=== PATIENT | male | born 1950 | race Native Hawaiian/Other Pacific Islander ===

== ENCOUNTER 2018-04-17 16:37 | Emergency (ER) | payer MEDICARE, OTHER ==
[2018-04-17 16:45] VITALS: BP 183/91; PULSE 78; RESP 20; TEMP 98.1
[2018-04-17] MEDS ORDERED: IBUPROFEN 600 MG TAB PO STA (16:54)
--- NOTE | 2018-04-17 17:26 | ED ---
Lower Extremity Injury HPI - General Chief Complaint: Extremity Injury, Lower Stated Complaint: [facility] - rt knee injury Time Seen by Provider: 04/17/18 16:53 Source: patient Mode of arrival: wheelchair Limitations: no limitations - History of Present Illness Initial Comments: This a 68-year-old male who denies past medical history presents today for chief complaint of right knee pain 1 week. patient states that a week ago he was at work at the [employer], when he stepped into a gonzales will with his right leg. She admits to feeling she twisted his right knee. He denies any dislocation. Immediately following the incident he reported ankle and knee pain. She denies falling, hitting his head or any loss consciousness or injury to any other extremity. Patient was able to ambulate. Patient presented to a clinic in [place] for evaluation, where x-rays were performed. He states it was not discussed them the x-ray results, he was placed in a knee extension brace. And he is not sure where he was told to follow up. Since injury patient has been experiencing increasing pain, he has not taken off the leg brace. He denies any erythema, increasing swelling, warmth to palpation, tingling, paresthesia, loss sensation or calf pain. She admits to decreased range of motion of the right knee stating that it feels stiff and it hurts when he bends it, as well as a feeling of numbness in the feet that comes and goes occasionally. Patient presents today for further evaluation.Patient denies any recent fever, chills, shortness of breath, chest pain, back pain, abdominal pain , nausea or vomiting, numbness or tingling, dysuria or hematuria, constipation or diarrhea, headaches or visual changes, or any other complaints. She states that the pain is a 10 out of 10 in the right knee that times radiates down the right leg.Patient denies any recent fever, chills, shortness of breath, chest pain, back pain, abdominal pain, nausea or vomiting, numbness or tingling, dysuria or hematuria, constipation or diarrhea, headaches or visual changes, or any other complaints. - Related Data Previous Rx's Medication Instructions Recorded Cephalexin [Keflex] 500 mg PO Q6HR #40 cap 03/31/16 Hydrocortisone [Cortisone 10%] 1 applic TOPICAL TID #1 tube 03/31/16 Ibuprofen [Motrin] 600 mg PO Q8HR PRN 7 Days #21 tab 04/17/18 Allergies Allergy/AdvReac Type Severity Reaction Status Date / Time No Known Allergies Allergy Verified 04/17/18 16:45 Review of Systems ROS Statement: Those systems with pertinent positive or pertinent negative responses have been documented in the HPI. ROS Other: All systems not noted in ROS Statement are negative. Constitutional: Denies: fever, chills Eyes: Denies: eye pain ENT: Denies: ear pain, throat pain Respiratory: Denies: cough, dyspnea Cardiovascular: Denies: chest pain, palpitations Endocrine: Denies: fatigue Gastrointestinal: Denies: abdominal pain, nausea, vomiting Genitourinary: Denies: urgency, dysuria Musculoskeletal: Reports: joint swelling, arthralgia. Denies: back pain Skin: Denies: rash, lesions Neurological: Reports: abnormal gait (difficulty ambulating secondary to pain). Denies: headache, weakness, paresthesias, confusion, vertigo Past Medical History Past Medical History: No Reported History History of Any Multi-Drug Resistant Organisms: None Reported Past Surgical History: Orthopedic Surgery Additional Past Surgical History / Comment(s): lung Past Psychological History: No Psychological Hx Reported Smoking Status: Current some day smoker Past Alcohol Use History: Occasional Past Drug Use History: None Reported General Exam - General Exam Comments Initial Comments: General: The patient is awake and alert, in no distress, and does not appear acutely ill. Eye: Pupils are equal, round and reactive to light, extra-ocular movements are intact. No nystagmus. There is normal conjunctiva bilaterally. No signs of icterus. Cardiovascular: There is a regular rate and rhythm. No murmur, rub or gallop is appreciated. Respiratory: Lungs are clear to auscultation, respirations are non-labored, breath sounds are equal. No wheezes, stridor, rales, or rhonchi. Musculoskeletal: There is soft tissue swelling over the lateral aspect of the right knee. No visible bulk atrophy, hypertrophy, fasciculations of the LE b/l. Full PROM of LE b/l. Bilateral muscle strength 5/5 for the following muscles: hip flexor, hip abductors/adductors, hamstrings, quadriceps, feet dorsiflexors/ plantar flexors. Pt is able to full range at the knee b/l with discomfort in the right knee. Tenderness to palpation over the anterior and lateral aspect of the right knee. Sensation intact and equal b/l. DP pulses equal bilaterally 2+. Compartments are soft and compressible of the legs equally b/l. No abrasion or lacerations. Neurological: A&O x 3. CN II-XII intact, There are no obvious motor or sensory deficits. Coordination appears grossly intact. Speech is normal. Skin: Skin is warm and dry and no rashes or lesions are noted. Psychiatric: Cooperative, appropriate mood & affect, normal judgment. Limitations: no limitations Course Vital Signs 04/17/18 16:42 Temperature 98.1 F Pulse Rate 78 Respiratory 20 Rate Blood Pressure 183/91 O2 Sat by Pulse 99 Oximetry Medical Decision Making - Medical Decision Making 68-year-old male with right knee pain concerning for possible fracture or ligamentous injury. X-rays of the right knee were obtained revealing no acute fracture or dislocation. Given the significance of soft tissue swelling in area of tenderness to patient with mechanism of injury I'm concerned for a lateral collateral ligament injury. No signs of rhabdomyolysis or compartment syndrome at this time. Given hx and that there is no erythema or pain out of portion on passive range of motion, low suspicion for septic joint this time. Extensor mechanism intact. Patient was able to weight-bear during examination and range the knee him a neurovascular intact. Case is discussed in detail and x-rays reviewed with . At this time we feel patient would benefit from orthopedic surgery follow-up for further evaluation and treatment. Patient is placed in a knee immobilizer. Given Rx for 600 mg ibuprofen for pain management. And told to nonweight bear until further orthopedic recommendation. Patient was educated on use of Rice instructions. Patient discharged in stable condition. She is instructed to return to emergency department for any worsening symptoms patient agreed.. Disposition Clinical Impression: Strain of right knee, Right knee pain Disposition: HOME SELF-CARE Condition: Good Instructions: Knee Sprain (ED) Additional Instructions: Please use medication as discussed. Please follow-up with orthopedic surgery in 1-2 days for possible right lateral collateral ligamentous injury. Please return to emergency room if the symptoms increase or worsen or for any other concerns. Prescriptions: Ibuprofen [Motrin] 600 mg PO Q8HR PRN 7 Days #21 tab PRN Reason: Pain Is patient prescribed a controlled substance at d/c from ED?: No Referrals: None,Stated [Primary Care Provider] - 1-2 days Jos Lang MD [STAFF PHYSICIAN] - 1-2 days Time of Disposition: 17:56
--- NOTE | 2018-04-17 17:41 | XR ---
PROCEDURE: XR knee complete RT 3V DATE AND TIME: 04/17/2018 5:16 PM CLINICAL INDICATION: H Pain TECHNIQUE: Department protocol. 3V COMPARISON: None FINDINGS: There is no definite fracture. Undulation of the contour of the central and lateral tibial plateau is noted, mentioned for clinical pretest probability sake, but there is no definite fracture radiographically. here is moderate plus soft tissue swelling laterally, suggesting lateral collateral ligament sprain i njury. 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 IMPRESSION: 1. Positive for lateral soft tissue swelling. 2. No definite acute fracture.
--- NOTE | 2018-04-17 17:42 | XR ---
PROCEDURE: XR tibia fibula RT - 4V DATE AND TIME: 04/17/2018 5:16 PM CLINICAL INDICATION: [facility] Pain TECHNIQUE: Department protocol. COMPARISON: None FINDINGS: There is no fracture or malalignment. The soft tissues are unremarkable. IMPRESSION: NO ACUTE PROCESS.
--- NOTE | 2018-04-17 17:43 | XR ---
PROCEDURE: XR ankle complete RT 3V DATE AND TIME: 04/17/2018 5:15 PM CLINICAL INDICATION: [facility] Pain TECHNIQUE: Department protocol. 3V COMPARISON: None FINDINGS: There is no fracture or malalignment. The soft tissues are unremarkable. IMPRESSION: NO ACUTE PROCESS.
== END 2018-04-17 18:09 | disposition home or self-care (01) ==
LOC: EC 16:37
DX: S86.811A Strain of other muscle(s) and tendon(s) at lower leg level, right leg, initial encounter (principal); F17.200 Nicotine dependence, unspecified, uncomplicated; X50.1XXA Overexertion from prolonged static or awkward postures, initial encounter; Y99.0 Civilian activity done for income or pay
CPT/HCPCS: 99283

== ENCOUNTER 2024-10-20 11:06 | Inpatient (IN) | payer MEDICARE ==
--- NOTE | 2024-10-20 12:25 | ED ---
Nausea/Vomiting/Diarrhea HPI - General Chief complaint: Nausea/Vomiting/Diarrhea Stated complaint: vomiting Time Seen by Provider: 10/20/24 12:23 Source: patient, family, RN notes reviewed Mode of arrival: ambulatory Limitations: no limitations - History of Present Illness Initial comments: Patient is 74-year-old male presented the ER for evaluation of nausea and vomiting. Family, at bedside, state for the past week patient has been unable to keep solids or liquids down. Daughter states she did bring patient 1 meal and he was able to consume this without difficulties earlier last week. Since then he is up and unable to keep food down. Patient was recently admitted to [facility] for this complaint. Patient states he had a negative workup at that time and was told to consume liquids upon discharge. Patient was discharged yesterday. Patient states he continues to have difficulty with consuming food and feels weak. He denies any abdominal pain, fevers, constipation/diarrhea, melena, hematochezia, hematic emesis or coffee-ground e mesis urinary complaints. No cough, congestion, chest pain, shortness of breath or other complaints at this time. Patient has no significant past medical history. No history of bowel surgeries. Patient does take medication for low blood pressure and did not take it this morning. Patient has not had prior colonoscopy. - Related Data Previous Rx's Medication Instructions Recorded Cephalexin [Keflex] 500 mg PO Q6HR #40 cap 03/31/16 Hydrocortisone [Cortisone 10%] 1 applic TOPICAL TID #1 tube 03/31/16 Ibuprofen [Motrin] 600 mg PO Q8HR PRN 7 Days #21 tab 04/17/18 Allergies Allergy/AdvReac Type Severity Reaction Status Date / Time No Known Allergies Allergy Verified 04/17/18 16:45 Review of Systems ROS Statement: Those systems with pertinent positive or pertinent negative responses have been documented in the HPI. ROS Other: All systems not noted in ROS Statement are negative. Past Medical History Past Medical History: Hyperlipidemia, Hypertension History of Any Multi-Drug Resistant Organisms: None Reported Past Surgical History: Orthopedic Surgery Additional Past Surgical History / Comment(s): lung Past Psychological History: No Psychological Hx Reported Past Alcohol Use History: Occasional Past Drug Use History: None Reported General Exam Limitations: no limitations General appearance: alert, in no apparent distress Eye exam: Present: PERRL, scleral icterus Respiratory exam: Present: normal lung sounds bilaterally. Absent: respiratory distress, wheezes, rales, rhonchi, stridor Cardiovascular Exam: Present: regular rate, normal rhythm, normal heart sounds. Absent: systolic murmur, diastolic murmur, rubs, gallop, clicks GI/Abdominal exam: Present: soft, normal bowel sounds. Absent: distended, tenderness, guarding, rebound, rigid Neurological exam: Present: alert, oriented X3, CN II-XII intact Skin exam: Present: warm, dry, intact, normal color. Absent: rash Course Vital Signs 10/20/24 11:24 Temperature 98.5 F Pulse Rate 98 Respiratory 20 Rate Blood Pressure 126/71 O2 Sat by Pulse 98 Oximetry - Reevaluation(s) Reevaluation #1: 10/20/24 15:[address] Cuba [facility] for admission Medical Decision Making - Medical Decision Making Was pt. sent in by a medical professional or institution (, PA, FEEDER/FOLDER, urgent care, hospital, or custodial...) When possible be specific @ -No Did you speak to anyone other than the patient for history (EMS, parent, family, police, friend...)? What history was obtained from this source @ -Patient's daughter, at bedside, aiding in HPI and PMHx. Did you review nursing and triage notes (agree or disagree)? Why? @ -I reviewed and agree with nursing and triage notes Were old charts reviewed (outside hosp., previous admission, EMS record, old EKG, old radiological studies, urgent care reports/EKG's, custodial records)? Report findings @ -No old charts were reviewed Differential Diagnosis (chest pain, altered mental status, abdominal pain women, abdominal pain men, vaginal bleeding, weakness, fever, dyspnea, syncope, headache, dizziness, GI bleed, back pain, seizure, CVA, palpatations, mental health, musculoskeletal)? @ -Differential Weakness: Hypoglycemia, shock, sepsis, hyponatremia, anemia, infection, OH, ETOH, adverse medicine reaction, overdose, stroke, this is not meant to be an all-inclusive list. EKG interpreted by me (3pts min.). @ -None done X-rays interpreted by me (1pt min.). @ -None done CT interpreted by me (1pt min.). @ -CT abdomen pelvis showing innumerable hypodense lesions throughout the liver concerning of metastasis. Enlarged right lower lobe 1.1 cm pulmonary nodule concerning of metastasis. Circumferential wall thickening of the gastric antrum which could be related to malignancy versus gastritis. Scattered colonic diverticula no acute diverticulitis. U/S interpreted by me (1pt. min.). @ -None done What testing was considered but not performed or refused? (CT, X-rays, U/S, labs)? Why? @ -None What meds were considered but not given or refused? Why? @ -None Did you discuss the management of the patient with other professionals (kira mcginnisfedaniel i.e. , PA, FEEDER/FOLDER, lab, RT, psych nurse, perinatal social worker, soft water mechanic, teacher, security officers and guards, case picker)? Give summary @ -Yes, case was discussed with [facility], Dr. Cuba, for admission who accepts. Was smoking cessation discussed for >3mins.? @ -No Was critical care preformed (if so, how long)? @ -No Were there social determinants of health that impacted care today? How? (Homelessness, low income, unemployed, alcoholism, drug addiction, transportation, low edu. Level, literacy, decrease access to med. care, half-way, rehab)? @ -No Was there de-escalation of care discussed even if they declined (Discuss DNR or withdrawal of care, Hospice)? DNR status @ -No What co-morbidities impacted this encounter? (DM, HTN, Smoking, COPD, CAD, Cancer, CVA, ARF, Chemo, Hep., AIDS, mental health diagnosis, sleep apnea, morbid obesity)? @ -Hx hypotension on medication Was patient admitted / discharged? Hospital course, mention meds given and route, prescriptions, significant lab abnormalities, going to OR and other pertinent info. @ -Admitted. 74-year-old male presented the ER for evaluation of nausea and vomiting. Upon rooming, history and physical exam completed. Vitals within acceptable limits. Patient in no signs acute distress nontoxic-appearing. Sclera appear to be mildly jaundiced. There is no abdominal pain on exam. CBC unremarkable. Lactic of 2.2. Total bilirubin 1.6, AST 149, ALT 46, alk phos 156. Amylase 39, lipase 43. Viral swabs negative. CT abdomen pelvis with extensive concerning signs of malignancy. Given abnormal CT findings concerning of malignancy and patient unable to tolerate solid foods admission was considered and discussed with [facility], Dr. Cuba who accepts admission. Oncology and GI on consult. Upon reevaluation, patient resting comfortably on stretcher no signs of acute distress. Laboratory studies and CT results including concern of malignancy discussed with patient, all questions answered. Patient agreeable for admission. Case discussed with ED attending, Dr. Quintanilla. Undiagnosed new problem with uncertain prognosis? @ -No Drug Therapy requiring intensive monitoring for toxicity (Heparin, Nitro, Insulin, Cardizem)? @ -No Were any procedures done? @ -No Diagnosis/symptom? @ -Nausea and vomiting/ Abnormal CT scan Acute, or Chronic, or Acute on Chronic? @ -Acute Uncomplicated (without systemic symptoms) or Complicated (systemic symptoms)? @ -Complicated Side effects of treatment? @ -No Exacerbation, Progression, or Severe Exacerbation? @ -No Poses a threat to life or bodily function? How? (Chest pain, USA, OH, pneumonia, PE, COPD, DKA, ARF, appy, cholecystitis, CVA, Diverticulitis, Homicidal, S uicidal, threat to staff... and all critical care pts) @ -Yes, cannot rule out malignancy - Lab Data Result diagrams: 10/20/24 12:43 10/20/24 12:43 Lab Results 10/20/24 10/20/24 10/20/24 Range/Units 12:43 12:43 12:43 WBC 10.4 (3.8-10.6) k/uL RBC 4.76 (4.30-5.90) m/uL Hgb 14.4 (13.0-17.5) gm/dL Hct 43.4 (39.0-53.0) % MCV 91.1 (80.0-100.0) fL MCH 30.1 (25.0-35.0) pg MCHC 33.1 (31.0-37.0) g/dL RDW 12.6 (11.5-15.5) % Plt Count 249 (150-450) k/uL MPV 8.3 Neutrophils % 71 % Lymphocytes % 17 % Monocytes % 10 % Eosinophils % 1 % Basophils % 0 % Neutrophils # 7.4 (1.3-7.7) k/uL Lymphocytes # 1.7 (1.0-4.8) k/uL Monocytes # 1.1 H (0-1.0) k/uL Eosinophils # 0.1 (0-0.7) k/uL Basophils # 0.0 (0-0.2) k/uL Sodium 132 L (137-145) mmol/L Potassium 4.0 (3.5-5.1) mmol/L Chloride 95 L (98-107) mmol/L Carbon Dioxide 26 (22-30) mmol/L Anion Gap 11 mmol/L BUN 14 (9-20) mg/dL Creatinine 1.23 (0.66-1.25) mg/dL Est GFR (CKD-EPI)AfAm 67 (>60 ml/min/1.73 sqM) Est GFR (CKD-EPI)NonAf 58 (>60 ml/min/1.73 sqM) Glucose 120 H (74-99) mg/dL Plasma Lactic Acid Bryson 2.2 H* (0.7-2.0) mmol/L Calcium 9.0 (8.4-10.2) mg/dL Magnesium 1.9 (1.6-2.3) mg/dL Total Bilirubin 1.6 H (0.2-1.3) mg/dL AST 149 H (17-59) U/L ALT 46 (4-49) U/L Alkaline Phosphatase 156 H (38-126) U/L Total Protein 7.9 (6.3-8.2) g/dL Albumin 4.0 (3.5-5.0) g/dL Amylase 39 (30-110) U/L Lipase 43 (23-300) U/L Influenza Type A (PCR) (Not Detectd) Influenza Type B (PCR) (Not Detectd) RSV (PCR) (Not Detectd) SARS-CoV-2 (PCR) (Not Detectd) 10/20/24 Range/Units 12:43 WBC (3.8-10.6) k/uL RBC (4.30-5.90) m/uL Hgb (13.0-17.5) gm/dL Hct (39.0-53.0) % MCV (80.0-100.0) fL MCH (25.0-35.0) pg MCHC (31.0-37.0) g/dL RDW (11.5-15.5) % Plt Count (150-450) k/uL MPV Neutrophils % % Lymphocytes % % Monocytes % % Eosinophils % % Basophils % % Neutrophils # (1.3-7.7) k/uL Lymphocytes # (1.0-4.8) k/uL Monocytes # (0-1.0) k/uL Eosinophils # (0-0.7) k/uL Basophils # (0-0.2) k/uL Sodium (137-145) mmol/L Potassium (3.5-5.1) mmol/L Chloride (98-107) mmol/L Carbon Dioxide (22-30) mmol/L Anion Gap mmol/L BUN (9-20) mg/dL Creatinine (0.66-1.25) mg/dL Est GFR (CKD-EPI)AfAm (>60 ml/min/1.73 sqM) Est GFR (CKD-EPI)NonAf (>60 ml/min/1.73 sqM) Glucose (74-99) mg/dL Plasma Lactic Acid Bryson (0.7-2.0) mmol/L Calcium (8.4-10.2) mg/dL Magnesium (1.6-2.3) mg/dL Total Bilirubin (0.2-1.3) mg/dL AST (17-59) U/L ALT (4-49) U/L Alkaline Phosphatase (38-126) U/L Total Protein (6.3-8.2) g/dL Albumin (3.5-5.0) g/dL Amylase (30-110) U/L Lipase (23-300) U/L Influenza Type A (PCR) Not Detected (Not Detectd) Influenza Type B (PCR) Not Detected (Not Detectd) RSV (PCR) Not Detected (Not Detectd) SARS-CoV-2 (PCR) Not Detected (Not Detectd) Disposition Clinical Impression: Nausea and vomiting, Abnormal CT scan Disposition: ADMITTED IP TO THIS HOSP Condition: Stable Referrals: Damion Candelario MD [Primary Care Provider] - 1-2 days Time of Disposition: 15:02
[2024-10-20 12:53] LABS: Basophils % (A) 0 %; Eosinophils # (A) 0.1 k/uL (0-0.7); Eosinophils % (A) 1 %; HCT 43.4 % (39.0-53.0); HGB 14.4 gm/dL (13.0-17.5); Lymphocytes # (A) 1.7 k/uL (1.0-4.8); Lymphocytes % (A) 17 %; MCH 30.1 pg (25.0-35.0); MCHC 33.1 g/dL (31.0-37.0); MCV 91.1 fL (80.0-100.0); Mean Platelet Volume 8.3; Monocytes # (A) 1.1 k/uL (0-1.0); Monocytes % (A) 10 %; Neutrophils # (A) 7.4 k/uL (1.3-7.7); Neutrophils % (A) 71 %; Platelet Count 249 k/uL (150-450); RBC 4.76 m/uL (4.30-5.90); RDW 12.6 % (11.5-15.5); WBC 10.4 k/uL (3.8-10.6)
[2024-10-20 13:02] LABS: ALT 46 U/L (4-49); AST 149 U/L (17-59); African American GFR (CKD) 67 (>60 ml/min/1.73 sqM); Alkaline Phosphatase 156 U/L (38-126); Amylase 39 U/L (30-110); Anion Gap 11 mmol/L; Blood Urea Nitrogen 14 mg/dL (9-20); Carbon Dioxide 26 mmol/L (22-30); Chloride 95 mmol/L (98-107); Glucose 120 mg/dL (74-99); Lipase 43 U/L (23-300); Magnesium 1.9 mg/dL (1.6-2.3); Non-African American GFR(CKD) 58 (>60 ml/min/1.73 sqM); Sodium 132 mmol/L (137-145); Total Bilirubin 1.6 mg/dL (0.2-1.3); Total Protein 7.9 g/dL (6.3-8.2)
[2024-10-20 13:27] LABS: Influenza A Not Detected (Not Detectd); Influenza B Not Detected (Not Detectd); RSV Not Detected (Not Detectd)
[2024-10-20] MEDS: ONDANSETRON 4 MG/2 ML VIAL IVP STA (13:49)
[2024-10-20] MEDS: SODIUM CHLORIDE 0.9% 1,000 ML IV STA (13:49)
--- NOTE | 2024-10-20 14:35 | CT ---
EXAMINATION TYPE: CT abdomen pelvis w con CT DLP: 769.5 mGycm, Automated exposure control for dose reduction was used. DATE OF EXAM: 10/20/2024 2:22 PM COMPARISON: None CLINICAL INDICATION:Male, 74 years old with history of nausea/vomiting; RT side abdominal pain, N/V, TECHNIQUE: Standard CT of the abdomen and pelvis following the administration of 100 cc of Isovue 3 00 IV contrast material. Coronal and sagittal reformats were performed. FINDINGS: LOWER CHEST: Right lower lobe 1.1 cm solid round pulmonary nodule (series 204, image 5). ABDOMEN LIVER: Unremarkable GALLBLADDER AND BILE DUCTS: Unremarkable. PANCREAS: Unremarkable. SPLEEN: Unremarkable. ADRENAL GLANDS: Unremarkable. KIDNEYS AND URETERS: No evidence of hydronephrosis or renal calculus. The kidneys enhance symmetrical ly. Contrast is demonstrated within both collecting systems on the delayed phase. PELVIS BLADDER: Innumerable hypodense lesions throughout the liver with hepatic surface nodularity. REPRODUCTIVE: Coarse calcifications of the prostate gland are identified. Enlarged prostate gland pato suring 5.5 cm in transverse dimension. ABDOMEN & PELVIS STOMACH AND BOWEL: Scattered colonic diverticula without evidence for acute diverticulitis.The append ix is within normal limits. Periampullary duodenal diverticulum. No evidence of bowel obstruction. PERITONEUM: No evidence of pneumoperitoneum or free fluid. VASCULATURE: Mild atherosclerotic calcifications are present throughout the abdominal aorta and its b ranches. No evidence of aortic aneurysm. MUSCULOSKELETAL: No acute osseous abnormalities. Degenerative changes of bilateral SI joints with ant erior bridging. No aggressive osseous lesion. Multilevel degenerative disc disease. LYMPH NODES: No definitive pathologic lymph nodes greater than 1 axis. SOFT TISSUE/ABDOMINAL WALL: Unremarkable IMPRESSION: 1. Innumerable hypodense lesions throughout the liver most consistent with metastasis from an unknow n primary malignancy. Additionally there is surface nodularity of the liver which could be due to hep atic cirrhosis versus pseudocirrhosis from the lesions. 2. Enlarged right lower lobe 1.1 cm pulmonary nodule concerning for metastasis. 3. Circumferential wall thickening of the gastric antrum which could be seen with malignancy versus g astritis. Direct visualization is recommended. 4. Scattered colonic diverticula without evidence for acute diverticulitis. [facility], , 10/20/2024 2:33 PM
[2024-10-20] MEDS ORDERED: IBUPROFEN 400 MG TAB PO PRN (15:00)
[2024-10-20] MEDS ORDERED: NALOXONE 0.4 MG/ML 1 ML VIAL IV PRN (15:00)
[2024-10-20] MEDS ORDERED: HYDROmorphone 1 MG/ML 1 ML SYRINGE IVP PRN (15:00)
[2024-10-20] MEDS ORDERED: ACETAMINOPHEN TAB 325 MG TAB PO PRN (15:00)
[2024-10-20] MEDS: SODIUM CHLORIDE 0.9% 1,000 ML IV SCH (17:20)
[2024-10-20] MEDS: METOPROLOL TARTRATE 50 MG TAB PO SCH (22:44)
[2024-10-21 06:48] LABS: Glucose,Whole Blood 96 mg/dL (70-110)
[2024-10-21 07:05] LABS: Appearance,Urine Clear (Clear); Bilirubin,Urine Negative (Negative); Blood,Urine Trace (Negative); Color,Urine Yellow; Glucose,Urine (UA) Negative (Negative); Ketones,Urine Negative (Negative); Leukocyte Esterase,Urine Negative (Negative); Mucus,Urine Rare /hpf; Nitrite,Urine Negative (Negative); Protein,Urine Trace (Negative); RBC,Urine 3 /hpf (0-5); Specific Gravity,Urine 1.027 (1.001-1.035); WBC,Urine <1 /hpf (0-5)
[2024-10-21] MEDS: HEPARIN SODIUM,PORCINE 5,000 UNIT/ML 1 ML VIAL SQ SCH (08:27)
[2024-10-21 12:39] LABS: INR 1.4 sec (0.93-1.11); Prothrombin Time 15.3 sec (9.9-11.9)
--- NOTE | 2024-10-21 14:30 | P.HPIM ---
History of Present Illness H&P Date: 10/21/24 This is a pleasant 74-year-old male who presented to the emergency department with intense abdominal pain along with nausea and vomiting being closely monitored. Patient reports he follows with Dr. Damion Candelario' WINSTON Kelly at the [facility] in [place] with a past medical history of chronic A-fib, nicotine dependence, alcoholic cirrhosis, right pulmonary nodule, daily alcohol use and obesity. Patient denies any other illicit drug use and reports has not had a drink in over a week and a half as he has not been feeling well. Per family patient has not been eating the greatest and has been having excessive nausea and vomiting. Patient also was noted to have multiple episodes of diar harris which has since resolved. Patient was admitted after undergoing CT abdomen which shows innumerable hypodense lesions throughout the liver most consistent with metastasis from an unknown primary malignancy, additionally there is surface nodularity of the liver which could be due to hepatic cirrhosis versus pseudocirrhosis from the lesions, and an enlarged right lower lobe 1.1 cm nodule concerning for metastasis as well as circumferential wall thickening of the gastric antrum which could represent malignancy versus gastritis along with scattered colonic diverticula without evidence of acute diverticulitis. Labs reveal a normal white count of 10.4, hemoglobin 14.4, platelets 249, sodium 132, potassium 4.0, BUN 14 and creatinine 1.23. Total bili is 1.6 with an AST of 149 and ALT is 46 urinalysis was negative, and influenza, RSV, COVID were all negative as well. Patient was started on gentle hydration along with supportive care and pain management with a consult to GI as well as oncology and interventional radiology for possible biopsy. REVIEW OF SYSTEMS: CONSTITUTIONAL: No fever, no malaise, reports of ongoing fatigue. HEENT: No recent visual problems or hearing problems. Denied any sore throat. CARDIOVASCULAR: No chest pain, orthopnea, PND, no palpitations, no syncope. PULMONARY: No shortness of breath, no cough, no hemoptysis. GASTROINTESTINAL: Reports of diarrhea prior to admission, reports of nausea, reports of vomiting that has resolved, reports diffuse abdominal pain. And multiple episodes of diarrhea that is also resolved NEUROLOGICAL: No headaches, reports of generalized weakness, no numbness. HEMATOLOGICAL: Denies any bleeding or petechiae. GENITOURINARY: Denies any burning micturition, frequency, or urgency. MUSCULOSKELETAL/RHEUMATOLOGICAL: Denies any joint pain, swelling, or any muscle pain. ENDOCRINE: Denies any polyuria or polydipsia. The rest of the 14-point review of systems is negative. PHYSICAL EXAMINATION: GENERAL: The patient is alert and oriented x3, not in any acute distress. Well developed, elderly appearing HEENT: Pupils are round and equally reacting to light. EOMI. No scleral icterus. No conjunctival pallor. Normocephalic, atraumatic. No pharyngeal erythema. No thyromegaly. CARDIOVASCULAR: S1 and S2 muffled PULMONARY: Diminished breath sounds bilaterally otherwise chest is clear to auscultation, no wheezing or crackles. ABDOMEN: Soft, mildly tender, nondistended, normoactive bowel sounds. No palpable organomegaly. MUSCULOSKELETAL: No joint swelling or deformity. EXTREMITIES: No cyanosis, clubbing, or pedal edema. NEUROLOGICAL: Gross neurological examination did not reveal any focal deficits. SKIN: No rashes. Assessment: Abdominal pain with nausea and vomiting possibly secondary to multiple hypodense lesions noted throughout the liver most consistent with metastasis Nausea/vomiting/diarrhea, likely acute gastritis History of chronic A-fib, maintained on Coumadin Hypertension Continued ongoing nicotine dependence Chronic daily alcohol use, has not had a drink in approximately 1.5 weeks Acute kidney injury, ATN, likely secondary to nausea, vomiting, diarrhea Diarrhea, rule out C. difficile, elevated LFTs and total bilirubin, likely secondary to chronic alcohol use Known right pulmonary nodule with no outpatient follow-up, noted again on CT History of hyperlipidemia GI prophylaxis DVT prophylaxis Full code Plan: Patient was at [facility] and discharged as he was having intractable nausea and vomiting with inability to hold down anything oral and was sent home on clear to full liquids instructed to follow-up with primary care provider. Per family at the bedside patient continued to be unable to tolerate oral intake and keep anything down have multiple episodes of nausea and vomiting with diarrhea came here for further evaluation. Patient is a poor historian and called the primary care providers office of which he sees nurse practitioner or PA for Dr. Kodak Kelly and more of a history was obtained. Patient is on Coumadin and will hold for now as there are tentative plans for biopsy of the liver as there are multiple hypodense lesions noted throughout likely metastasis GI consulted for the abdominal pain and is tentatively scheduled for EGD/colonoscopy and recommend to hold Coumadin, will continue heparin and hold 1 night prior Repeat labs ordered from GI as well as oncology. Interventional radiology consulted with attempts for possible biopsy Patient to continue on clear liquids and gentle hydration and will follow-up on repeat labs. Replace electrolytes per protocol Patient was having multiple episodes of diarrhea although has since subsided it is C. difficile sample has been ordered and pending at this time. Encouraged increase activity as tolerated Will continue pain management and recommend avoiding narcotics if possible given patient's age. Family is also concerned of not being as alert as normal and will monitor closely for any hospital-acquired delirium. May use Seroquel as needed at night Patient to continue clear liquids for now as patient is reporting improvement in abdominal pain, nausea, and vomiting and has not had a bowel movement since his last episode of diarrhea late last night. The impression and plan of care has been dictated by Emma Garcia, Nurse Practitioner as directed. Dr. Yazmin MD I have performed a history and examination and MDM of this patient, discussed the same with the dictator, and agree with the dictator's assessment and plan as written ,documented as a scribe. Based on total visit time, I have performed more than 50% of the visit. Past Medical History Past Medical History: Hyperlipidemia, Hypertension History of Any Multi-Drug Resistant Organisms: None Reported Past Surgical History: No Surgical Hx Reported Additional Past Surgical History / Comment(s): lung Past Anesthesia/Blood Transfusion Reactions: No Reported Reaction Smoking Status: Current some day smoker Medications and Allergies Home Medications Medication Instructions Recorded Confirmed Type Metoprolol Tartrate [Lopressor] 50 mg PO BID@0700,1500 10/20/24 10/20/24 History Warfarin [Coumadin] 2.5 mg PO DAILY@1500 10/20/24 10/20/24 History Allergies Allergy/AdvReac Type Severity Reaction Status Date / Time No Known Allergies Allergy Verified 10/20/24 15:40 Physical Exam Vitals: Vital Signs Temp Pulse Pulse Resp BP BP Pulse Ox 10/21/24 09:07 98.5 F 89 134/84 10/21/24 06:46 98.4 F 73 16 132/81 98 10/21/24 02:00 98.9 F 75 16 126/75 98 10/20/24 21:29 98.3 F 84 16 157/91 95 10/20/24 20:43 16 10/20/24 19:47 80 18 117/70 98 10/20/24 18:19 87 16 143/91 97 10/20/24 15:22 80 18 157/85 95 10/20/24 11:24 98.5 F 98 20 126/71 98 Intake and Output 10/20/24 10/21/24 10/21/24 22:59 06:59 14:59 Intake Total 590 590 480 Balance 590 590 480 Intake: Oral 590 590 480 Other: Voiding Method Urinal # Voids 1 1 Weight 72.575 kg Results CBC & Chem 7: 10/20/24 12:43 10/20/24 12:43 Labs: Abnormal Lab Results - Last 24 Hours (Table) 10/20/24 10/20/24 10/20/24 Range/Units 12:43 12:43 12:43 Monocytes # 1.1 H (0-1.0) k/uL Sodium 132 L (137-145) mmol/L Chloride 95 L (98-107) mmol/L Glucose 120 H (74-99) mg/dL Plasma Lactic Acid Bryson 2.2 H* (0.7-2.0) mmol/L Total Bilirubin 1.6 H (0.2-1.3) mg/dL AST 149 H (17-59) U/L Alkaline Phosphatase 156 H (38-126) U/L Urine Protein (Negative) Urine Blood (Negative) Urine Mucus (None) /hpf 10/21/24 Range/Units 06:15 Monocytes # (0-1.0) k/uL Sodium (137-145) mmol/L Chloride (98-107) mmol/L Glucose (74-99) mg/dL Plasma Lactic Acid Bryson (0.7-2.0) mmol/L Total Bilirubin (0.2-1.3) mg/dL AST (17-59) U/L Alkaline Phosphatase (38-126) U/L Urine Protein Trace H (Negative) Urine Blood Trace H (Negative) Urine Mucus Rare H (None) /hpf Thrombosis Risk Factor Assmnt - Choose All That Apply Any of the Below Risk Factors Present?: No Other Risk Factors: Yes Each Risk Factor Represents 2 Points: Age 61-74 years Each Risk Factor Represents 3 Points: Family history of DVT/PE Thrombosis Risk Factor Assessment Total Risk Factor Score: 5 Thrombosis Risk Factor Assessment Level: High Risk
--- NOTE | 2024-10-21 15:11 | P.CONS ---
History of Present Illness - Reason for Consult Consult date: 10/21/24 Nausea and vomiting, possible malignancy Requesting physician: Lindsay Stout - Chief Complaint Nausea and vomiting - History of Present Illness This a pleasant 74-year-old male who presented to the emergency department after being seen twice at the emergency department in [facility]. Patient has been having nausea and vomiting for the last 5 to 6 days duration. He has not been able to keep any food and minimal fluids down. Patient is poor historian however was able to obtain patient's history from his primary medical physician. He has a past medical history of atrial fibrillation warfarin, liver cirrhosis, pulmonary nodule, daily alcohol abuse for many years as well as nicotine dependence. He denies any hematemesis, nonbilious emesis. States he has been afebrile. Denies any diarrhea or abdominal pain. He has not had any vomiting since he has been admitted to the hospital. He had a CT of the abdomen pelvis as part of his workup with findings of multiple liver lesions gastric wall thickening and had elevated LFTs. Gastroenterology was consulted for nausea and vomiting with liver lesions. Patient denies any previous history of upper endoscopy or colonoscopy. Denies any history of peptic ulcer disease, denies any acid reflux. He is unsure if he has had any weight loss. Apparently patient drinks about a case of beer a day and drinks at least 4 to 5 days a week. Reportedly he has not drink any alcohol in about a week to 2 weeks. Review of Systems REVIEW OF SYSTEMS: CARDIOPULMONARY: No chest pain or shortness of breath. Gastrointestinal: No abdominal pain. Nausea and vomiting for 5 to 6 days duration. Unable to keep food and liquids down. No hematemesis, coffee-ground emesis. No rectal bleeding, or melena. GENITOURINARY: No dysuria or hematuria. MUSCULOSKELETAL: Reports normal range of motion. SKIN: No rashes. No jaundice. ENDOCRINE: No chills, fevers. No excessive weight gain or loss. No polydipsia or polyuria. PSYCHIATRIC: Unremarkable. Daily alcohol use. NEUROLOGY: No change in mental status. Denies dizziness, headache. ENT: Vision unremarkable. CONSTITUTIONAL: No recent weight loss. No fever, chills, night sweats. Past Medical History Past Medical History: Hyperlipidemia, Hypertension History of Any Multi-Drug Resistant Organisms: None Reported Past Surgical History: No Surgical Hx Reported Additional Past Surgical History / Comment(s): lung Past Anesthesia/Blood Transfusion Reactions: No Reported Reaction Smoking Status: Current some day smoker Medications and Allergies Home Medications Medication Instructions Recorded Confirmed Type Metoprolol Tartrate [Lopressor] 50 mg PO BID@0700,1500 10/20/24 10/20/24 History Warfarin [Coumadin] 2.5 mg PO DAILY@1500 10/20/24 10/20/24 History Allergies Allergy/AdvReac Type Severity Reaction Status Date / Time No Known Allergies Allergy Verified 10/20/24 15:40 Physical Exam Vitals: Vital Signs Temp Pulse Pulse Resp BP BP Pulse Ox 10/21/24 09:07 98.5 F 89 134/84 10/21/24 06:46 98.4 F 73 16 132/81 98 10/21/24 02:00 98.9 F 75 16 126/75 98 10/20/24 21:29 98.3 F 84 16 157/91 95 10/20/24 20:43 16 10/20/24 19:47 80 18 117/70 98 10/20/24 18:19 87 16 143/91 97 10/20/24 15:22 80 18 157/85 95 10/20/24 11:24 98.5 F 98 20 126/71 98 Intake and Output 10/20/24 10/21/24 10/21/24 22:59 06:59 14:59 Intake Total 590 590 480 Balance 590 590 480 Intake: Oral 590 590 480 Other: Voiding Method Urinal # Voids 1 1 Weight 72.575 kg General appearance: The patient is alert, oriented, appears in no acute distress. HET: Head is normocephalic and atraumatic. Conjunctiva pink. Sclera anicteric. Neck: Supple without lymphadenopathy. Trachea midline. Heart: Regular. Lungs: Equal expansion, normal respiratory effort. Abdomen: Soft, nontender, no hepatomegaly, nondistended. Skin: No rashes. No jaundice. Extremities: Normal skin color and turgor. No pedal edema. Neurological: No focal deficits. Alert and oriented x3. Results CBC & Chem 7: 10/20/24 12:43 10/20/24 12:43 Labs: Abnormal Lab Results - Last 24 Hours (Table) 10/20/24 10/20/24 10/20/24 Range/Units 12:43 12:43 12:43 Monocytes # 1.1 H (0-1.0) k/uL Sodium 132 L (137-145) mmol/L Chloride 95 L (98-107) mmol/L Glucose 120 H (74-99) mg/dL Plasma Lactic Acid Bryson 2.2 H* (0.7-2.0) mmol/L Total Bilirubin 1.6 H (0.2-1.3) mg/dL AST 149 H (17-59) U/L Alkaline Phosphatase 156 H (38-126) U/L Urine Protein (Negative) Urine Blood (Negative) Urine Mucus (None) /hpf 10/21/24 Range/Units 06:15 Monocytes # (0-1.0) k/uL Sodium (137-145) mmol/L Chloride (98-107) mmol/L Glucose (74-99) mg/dL Plasma Lactic Acid Bryson (0.7-2.0) mmol/L Total Bilirubin (0.2-1.3) mg/dL AST (17-59) U/L Alkaline Phosphatase (38-126) U/L Urine Protein Trace H (Negative) Urine Blood Trace H (Negative) Urine Mucus Rare H (None) /hpf Comments: CT abdomen pelvis with contrast reports innumerable hypodense lesions throughout the liver most consistent with metastasis from an unknown primary malignancy. Additionally there is surface nodularity of the liver which could be due to hepatic cirrhosis versus pseudocirrhosis from the lesions. A large right lower lobe 1.1 cm pulmonary nodule concerning for metastasis. Circumferential wall thickening of the gastric antrum which could be seen with malignancy versus gastritis. Direct visualization is recommended. Scattered colonic diverticula without evidence of acute diverticulitis. Assessment and Plan (1) Nausea and vomiting Narrative/Plan: 74-year-old male with nausea and vomiting for the last 5 to 6 days duration with inability to keep food or liquids down with no prior history of peptic ulcer disease or gastric reflux. CAT scan showing multiple liver lesions in a patient with history of daily alcohol use for many years with reported history of liver cirrhosis per PCP. Nausea and vomiting has subsided, could be secondary to alcohol gastritis however in setting of liver lesions need to consider other possible etiologies. Will proceed with upper endoscopy as well as colonoscopy as patient has never had a colonoscopy. Continue with symptomatic treatment with antiemetics, clear liquid diet. Current Visit: Yes Status: Acute Priority: Medium Code(s): R11.2 - NAUSEA WITH VOMITING, UNSPECIFIED SNOMED Code(s): 96198597 (2) Liver lesion Narrative/Plan: Liver biopsy ordered Current Visit: Yes Status: Acute Code(s): K76.9 - LIVER DISEASE, UNSPECIFIED SNOMED Code(s): 016520325 (3) Liver cirrhosis Narrative/Plan: Reported liver cirrhosis per PCP history, likely secondary to long-term alcohol abuse. Will obtain hepatitis panel. Recommend alcohol abstinence Current Visit: Yes Status: Acute Code(s): K74.60 - UNSPECIFIED CIRRHOSIS OF LIVER SNOMED Code(s): 02230445 (4) Pulmonary nodule Current Visit: Yes Status: Acute Code(s): R91.1 - SOLITARY PULMONARY NODULE SNOMED Code(s): 530056797 (5) Atrial fibrillation Current Visit: Yes Status: Acute Code(s): I48.91 - UNSPECIFIED ATRIAL FIBRILLATION SNOMED Code(s): 83153661 (6) Alcohol abuse Current Visit: Yes Status: Acute Code(s): F10.10 - ALCOHOL ABUSE, UNCOMPLICATED SNOMED Code(s): 30762155 (7) Nicotine dependence Current Visit: Yes Status: Acute Code(s): F17.200 - NICOTINE DEPENDENCE, UNSPECIFIED, UNCOMPLICATED SNOMED Code(s): 93954885 Plan: 1. Continue symptomatic and supportive care 2. Antiemetics as needed 3. Protonix 40 mg twice daily 5. AFP and hepatitis panel ordered 6. Repeat INR, CMP tomorrow 7. Liver biopsy ordered per oncology. Likely will not be scheduled until Sunday per IR nurse 8. Clear liquid diet, n.p.o. after midnight 9. Bowel prep this evening 10. Will plan for upper endoscopy and colonoscopy tomorrow 11. Hold warfarin 12. Continue with recommendations from oncology 13. Discussed with patient and family importance of alcohol abstinence and smoking cessation Thank you for this consultation, we will continue to follow. Dr. Maria Victoria Mena I agree with the dictator's note, documented as a scribe by Marva Dyson.
[2024-10-21 15:22] LABS: Hepatitis A Antibody IgM Nonreactive (Nonreactive); Hepatitis B Core IgM Nonreactive (Nonreactive); Hepatitis B Surface Antigen Nonreactive (Nonreactive); Hepatitis C IgG Antibody Nonreactive (Nonreactive)
--- NOTE | 2024-10-21 15:28 | P.CONS ---
History of Present Illness - Reason for Consult Consult date: 10/21/24 r/o malignancy Requesting physician: Lindsay Stout - Chief Complaint N/V - History of Present Illness Patient is a 74-year-old male with a significant history of hyperlipidemia, hypertension, and EtOH abuse. Patient presented to the emergency room for nausea vomiting and associated decreased oral intake over the last 1 week. Patient reports he was seen in the ER at another hospital twice for the same. Patient endorses approximate 30 pound weight loss over the last couple weeks, but family is unsure if this is accurate. Family reports patient is a heavy daily drinker, consuming up to a case of beer daily. Upon admit CT abdomen and pelvis with contrast showing innumerable hypodense lesions throughout the liver. Additionally there is surface nodularity of the liver which could be due to hepatic cirrhosis versus pseudocirrhosis from the noted lesions. Enlarged right lower lobe 1.1 cm pulmonary nodule. Circumferential wall thickening of the gastric antrum. Scattered colonic diverticuli without evidence of acute diverticulitis. Labs reviewed. WBC 10.4, hemoglobin 14.4, platelets 249,000. Creatinine 1.23, GFR 58. Lactic acid 2.2 now improved at 1.6. Bilirubin 1.6, AST 149, ALT 46, ALP 156. Amylase and lipase WNL. At today's visit patient is reporting significant improvement in nausea vomiting. Reports his appetite has improved and feels very hungry. Patient denies bowel changes, hematochezia and melena and hematemesis. Review of Systems 10 point ROS is negative except as stated in the HPI Past Medical History Past Medical History: Hyperlipidemia, Hypertension History of Any Multi-Drug Resistant Organisms: None Reported Past Surgical History: No Surgical Hx Reported Additional Past Surgical History / Comment(s): lung Past Anesthesia/Blood Transfusion Reactions: No Reported Reaction Smoking Status: Current some day smoker Medications and Allergies Home Medications Medication Instructions Recorded Confirmed Type Metoprolol Tartrate [Lopressor] 50 mg PO BID@0700,1500 10/20/24 10/20/24 History Warfarin [Coumadin] 2.5 mg PO DAILY@1500 10/20/24 10/20/24 History Allergies Allergy/AdvReac Type Severity Reaction Status Date / Time No Known Allergies Allergy Verified 10/20/24 15:40 Physical Exam Vitals: Vital Signs Temp Pulse Pulse Resp BP BP Pulse Ox 10/21/24 11:57 98.3 F 70 16 146/76 99 10/21/24 11:35 98.4 F 78 16 143/87 98 10/21/24 09:07 98.5 F 89 134/84 10/21/24 06:46 98.4 F 73 16 132/81 98 10/21/24 02:00 98.9 F 75 16 126/75 98 10/20/24 21:29 98.3 F 84 16 157/91 95 10/20/24 20:43 16 10/20/24 19:47 80 18 117/70 98 10/20/24 18:19 87 16 143/91 97 10/20/24 15:22 80 18 157/85 95 Intake and Output 10/20/24 10/21/24 10/21/24 22:59 06:59 14:59 Intake Total 590 590 480 Balance 590 590 480 Intake: Oral 590 590 480 Other: Voiding Method Urinal # Voids 1 1 Weight 72.575 kg - Constitutional General appearance: average body habitus, no acute distress - EENT Eyes: anicteric sclerae, EOMI ENT: hearing grossly normal - Neck Neck: no lymphadenopathy - Respiratory breathing is even and unlabored - Cardiovascular well perfused - Gastrointestinal General gastrointestinal: distended, no hepatomegaly, no tenderness - Integumentary Integumentary: no cyanotic, no jaundiced - Neurologic Neurologic: CNII-XII intact - Psychiatric Psychiatric: A&O x's 3 Results CBC & Chem 7: 10/20/24 12:43 10/20/24 12:43 Labs: Abnormal Lab Results - Last 24 Hours (Table) 10/20/24 10/20/24 10/20/24 Range/Units 12:43 12:43 12:43 Monocytes # 1.1 H (0-1.0) k/uL PT (9.9-11.9) sec INR (0.93-1.11) sec Sodium 132 L (137-145) mmol/L Chloride 95 L (98-107) mmol/L Glucose 120 H (74-99) mg/dL Plasma Lactic Acid Bryson 2.2 H* (0.7-2.0) mmol/L Total Bilirubin 1.6 H (0.2-1.3) mg/dL AST 149 H (17-59) U/L Alkaline Phosphatase 156 H (38-126) U/L Urine Protein (Negative) Urine Blood (Negative) Urine Mucus (None) /hpf 10/21/24 10/21/24 Range/Units 06:00 06:15 Monocytes # (0-1.0) k/uL PT 15.3 H (9.9-11.9) sec INR 1.40 H (0.93-1.11) sec Sodium (137-145) mmol/L Chloride (98-107) mmol/L Glucose (74-99) mg/dL Plasma Lactic Acid Bryson (0.7-2.0) mmol/L Total Bilirubin (0.2-1.3) mg/dL AST (17-59) U/L Alkaline Phosphatase (38-126) U/L Urine Protein Trace H (Negative) Urine Blood Trace H (Negative) Urine Mucus Rare H (None) /hpf CT scan - abdomen: report reviewed CT scan - pelvis: report reviewed Assessment and Plan (1) Abnormal CT scan Current Visit: Yes Status: Acute Priority: High Code(s): R93.89 - ABNORMAL FINDINGS ON DX IMAGING OF OTH BODY STRUCTURES SNOMED Code(s): 501384958 (2) Nausea and vomiting Current Visit: Yes Status: Acute Priority: Medium Code(s): R11.2 - NAUSEA WITH VOMITING, UNSPECIFIED SNOMED Code(s): 32337666 Plan: Nausea, vomiting, liver lesions: Patient presented to the emergency room for nausea vomiting and associated decreased oral intake over the last 1 week. He endorses approximate 30 pound weight loss over the last couple weeks, but family is unsure if this is accurate. Family reports patient is a heavy daily drinker, consuming up to a case of beer daily. Patient denies bowel changes, hematochezia and melena and hematemesis -Upon admit CT abdomen and pelvis with contrast showing innumerable hypodense lesions throughout the liver. Additionally there is surface nodularity of the liver which could be due to hepatic cirrhosis versus pseudocirrhosis from the noted lesions. Enlarged right lower lobe 1.1 cm pulmonary nodule. Circumferential wall thickening of the gastric antrum. Scattered colonic d iverticuli without evidence of acute diverticulitis. -WBC 10.4, hemoglobin 14.4, platelets 249,000. Creatinine 1.23, GFR 58. Bilirubin 1.6, AST 149, ALT 46, ALP 156. Amylase and lipase WNL. -GI consulted. Will f/u on their recommendations -IR consult placed for liver biopsy -Will plan for outpt PET CT Discussed findings and concerns for metastatic disease. POC was discussed and pt was agreeable to the same. All questions and concerns were addressed Dr briggs: I have seen and examined pt, performed H&P, developed impression and plan of care. Discussed with dictator. Agree with documentation, dictated as a scribe.
[2024-10-21 15:32] LABS: Alpha Fetoprotein, Tumor Mkr <3.00 ng/mL (0.00-7.90)
[2024-10-21] MEDS: PEG 3350 (236 GM/BTL) + LYTES 4,000 ML BOTTLE PO ONE (17:06)
[2024-10-21] MEDS: ONDANSETRON 4 MG/2 ML VIAL IVP PRN (18:22)
[2024-10-22] MEDS: HYDROcodone/APAP 5-325MG 1 EACH TAB PO PRN (06:06)
[2024-10-22] MEDS: PANTOPRAZOLE 40 MG/10 ML VIAL IVP SCH (09:06)
[2024-10-22 09:12] LABS: BUN/Creat Ratio 6.73 Ratio (12.00-20.00); Blood Urea Nitrogen 7.4 mg/dL (9.0-27.0); Glucose 88 mg/dL (70-110)
[2024-10-22 09:13] LABS: ALT 41 U/L (10-49); AST 111 U/L (14-35); Alkaline Phosphatase 156 U/L (41-126); Chloride 101 mmol/L (96-109); Sodium 133 mmol/L (135-145); Total Bilirubin 1.2 mg/dL (0.3-1.2)
[2024-10-22] MEDS ORDERED: LIDOCAINE 2% (PF) 20 MG/ML 5 ML VIAL ONE (13:15)
[2024-10-22] MEDS ORDERED: PROPOFOL 10 MG/ML 20 ML VIAL IV ONE (13:15)
[2024-10-22] MEDS: IV FLUID CONTINUATION 1,000 ML IV ONE ×2 (13:17→13:32)
--- NOTE | 2024-10-22 13:36 | P.PCN ---
Date of Procedure: 10/22/24 Procedure(s) Performed: BRIEF HISTORY: Patient is a 74-year-old, pleasant, male admitted to hospital with multiple episodes of nausea vomiting for the last 1 month duration. He had a CT of the abdomen pelvis done that showed multiple lesions in the liver suspicious for metastasis. Also there was evidence of thickening of the antrum of the stomach. He is scheduled for an upper endoscopy to evaluate further. Patient could not tolerate colonic prep and hence colonoscopy is canceled for today. PROCEDURE PERFORMED: Esophagogastroduodenoscopy with biopsy. PREOPERATIVE DIAGNOSIS: Chronic nausea vomiting and abnormal CAT scan showing multiple lesions in the liver and thickened antrum. IV sedation per anesthesia. PROCEDURE: After informed consent was obtained, the patient was brought into the endoscopy unit. IV sedation was administered by Anesthesia under continuous monitoring. Initially the Olympus GIF-140 video endoscope was inserted into the mouth. Esophagus intubated without any difficulty. It was gradually advanced into the stomach. In the antrum of the stomach there was a 4 cm raised ulcerated lesion that was extending into the pylorus and the scope would not be advanced to the pylorus into the duodenum. Multiple biopsies were done from the ulcerated lesion. The room was large amount of solid and liquid food in the stomach and hence the body cardia and fundus could not be adequately visualized. The scope was then withdrawn into the esophagus. The GE junction was located at 39 cm from the incisors. The esophagus appeared normal. There were no erosions or ulcerations seen and the patient tolerated the procedure well. IMPRESSION: 1. 4 cm raised ulcerated lesion in the antrum of the stomach extending onto the pylorus causing pyloric stenosis status post multiple biopsies to rule out neoplasm 2. Pyloric stenosis with gastric outlet obstruction and large amount of retained food in the stomach. RECOMMENDATIONS: The findings of this examination were discussed with the patient as well as his family. At this time we will await biopsy results. Continue with clear liquids..
--- NOTE | 2024-10-22 15:42 | P.PN ---
Subjective Progress Note Date: 10/22/24 This is a pleasant 74-year-old male who presented to the emergency department with intense abdominal pain along with nausea and vomiting being closely monitored. Patient reports he follows with Dr. Damion Candelario' WINSTON Kelly at the [facility] in [place] with a past medical history of chronic A-fib, nicotine dependence, alcoholic cirrhosis, right pulmonary nodule, daily alcohol use and obesity. Patient denies any other illicit drug use and reports has not had a drink in over a week and a half as he has not been feeling well. Per family patient has not been eating the greatest and has been having excessive nausea and vomiting. Patient also was noted to have multiple episodes of diarrhea which has since resolved. Patient was admitted after undergoing CT abdomen which shows innumerable hypodense lesions throughout the liver most consistent with metastasis from an unknown primary malignancy, additionally there is surface nodularity of the liver which could be due to hepatic cirrhosis versus pseudocirrhosis from the lesions, and an enlarged right lower lobe 1.1 cm nodule concerning for metastasis as well as circumferential wall thickening of the gastric antrum which could represent malignancy versus gastritis along with scattered colonic diverticula without evidence of acute diverticulitis. Labs reveal a normal white count of 10.4, hemoglobin 14.4, platelets 249, sodium 132, potassium 4.0, BUN 14 and creatinine 1.23. Total bili is 1.6 with an AST of 149 and ALT is 46 urinalysis was negative, and influenza, RSV, COVID were all negative as well. Patient was started on gentle hydration along with supportive care and pain management with a consult to GI as well as oncology and interventional radiology for possible biopsy. 10/22/2024 Patient is seen in follow-up today with oncology and GI following. Patient unable to tolerate the GoLytely bowel prep and will be undergoing EGD for further evaluation. Patient is currently n.p.o. although requesting a diet and advance in diet as he feels hungry. Patient has had no further bowel movements, highly unlikely for C. difficile. Patient is also scheduled for biopsy with interventional radiology although patient had been taking Coumadin and will need to wait until Sunday to perform this. Patient is afebrile denies any further abdominal pain and denies any chest pain other than intermittently. Patient reports to feeling epigastric discomfort that resolves. Review of systems: Constitutional: No reports of fatigue, fever, or chills Cardiovascular: No reports of chest pain or palpitations Respiratory: No reports of shortness of breath or cough GI: No reports of nausea, vomiting, or diarrhea, requesting food reports improved abdominal pain : No reports of dysuria or retention Neurovascular: reports of generalized weakness All medications have been reviewed PHYSICAL EXAMINATION: GENERAL: The patient is alert and oriented x3, not in any acute distress. Well developed, elderly appearing HEENT: Pupils are round and equally reacting to light. EOMI. No scleral icterus. No conjunctival pallor. Normocephalic, atraumatic. No pharyngeal erythema. No thyromegaly. CARDIOVASCULAR: S1 and S2 muffled PULMONARY: Diminished breath sounds bilaterally otherwise chest is clear to auscultation, no wheezing or crackles. ABDOMEN: Soft, mildly tender, nondistended, normoactive bowel sounds. No palpable organomegaly. MUSCULOSKELETAL: No joint swelling or deformity. EXTREMITIES: No cyanosis, clubbing, or pedal edema. NEUROLOGICAL: Gross neurological examination did not reveal any focal deficits. SKIN: No rashes. Assessment: Abdominal pain with nausea and vomiting possibly secondary to multiple hypodense lesions noted throughout the liver most consistent with metastasis Nausea/vomiting/diarrhea, likely acute gastritis History of chronic A-fib, maintained on Coumadin, currently being held as patien t is scheduled to undergo biopsy of the liver Hypertension Continued ongoing nicotine dependence Chronic daily alcohol use, has not had a drink in approximately 1.5 weeks Acute kidney injury, ATN, likely secondary to nausea, vomiting, diarrhea Diarrhea, rule out C. difficile, elevated LFTs and total bilirubin, likely secondary to chronic alcohol use Known right pulmonary nodule with no outpatient follow-up, noted again on CT History of hyperlipidemia GI prophylaxis DVT prophylaxis Full code Plan: Patient was at [facility] and discharged as he was having intractable nausea and vomiting with inability to hold down anything oral and was sent home on clear to full liquids instructed to follow-up with primary care provider. Per family at the bedside patient continued to be unable to tolerate oral intake and keep anything down have multiple episodes of nausea and vomiting with diarr hea came here for further evaluation. Patient is a poor historian and called the primary care providers office of which he sees nurse practitioner or PA for Dr. Kodak Kelly and more of a history was obtained. Patient is on Coumadin and will hold for now as there are tentative plans for biopsy of the liver as there are multiple hypodense lesions noted throughout likely metastasis. Tentatively scheduled for IR guided biopsy on Sunday GI following and unable to tolerate the colonoscopy prep although is scheduled to undergo EGD today. Currently pending. Repeat labs ordered from GI as well as oncology. Patient to continue on clear liquids and gentle hydration and will follow-up on repeat labs. Replace electrolytes per protocol. Patient currently n.p.o. today and will discuss with GI regarding resuming diet as patient reports he is feeling hungry and denies any further abdominal pain. Patient was having multiple episodes of diarrhea although has since subsided it is C. difficile sample has been ordered and will cancel as patient has not had another bowel movement. Highly unlikely of C. difficile Encouraged increase activity as tolerated Will continue pain management and recommend avoiding narcotics if possible given patient's age. Family is also concerned of not being as alert as normal and will monitor closely for any hospital-acquired delirium. May use Seroquel as n eeded at night The impression and plan of care has been dictated by Emma Garcia, Nurse Practitioner as directed. Dr. Yazmin MD I have performed a history and examination and MDM of this patient, discussed the same with the dictator, and agree with the dictator's assessment and plan as written ,documented as a scribe. Based on total visit time, I have performed more than 50% of the visit. Objective - Vital Signs Vital signs: Vital Signs Temp 97.7 F 10/22/24 07:41 Pulse 80 10/22/24 07:41 Resp 18 10/22/24 07:41 BP 152/94 10/22/24 07:41 Pulse Ox 98 10/22/24 07:41 FiO2 Intake & Output 10/21/24 10/22/24 10/22/24 18:59 06:59 18:59 Intake Total 0436 414 Balance 0995 317 Weight 72.575 kg Intake: Oral 8244 437 Other: Voiding Method Toilet Bedside Commode Bedside Commode Urinal Urinal # Voids 5 1 - Labs CBC & Chem 7: 10/20/24 12:43 10/22/24 04:43 Labs: Abnormal Lab Results - Last 24 Hours (Table) 10/21/24 10/22/24 Range/Units 06:00 04:43 PT 15.3 H (9.9-11.9) sec INR 1.40 H (0.93-1.11) sec Sodium 133 L (135-145) mmol/L BUN 7.4 L (9.0-27.0) mg/dL BUN/Creatinine Ratio 6.73 L (12.00-20.00) Ratio Calcium 8.0 L (8.7-10.3) mg/dL AST 111 H (14-35) U/L Alkaline Phosphatase 156 H (41-126) U/L Total Protein 6.0 L (6.2-8.2) g/dL Albumin 3.0 L (3.8-4.9) g/dL Albumin/Globulin Ratio 1.00 L (1.60-3.17) Ratio
[2024-10-23] MEDS: LACTATED RINGERS 1,000 ML IV SCH (06:59)
--- NOTE | 2024-10-23 11:25 | P.PN ---
Subjective Progress Note Date: 10/23/24 Principal diagnosis: Vomiting, ulcerated stomach lesion This a pleasant 74-year-old male who presented to the emergency department after being seen twice at the emergency department in [facility]. Patient has been having nausea and vomiting for the last 5 to 6 days duration. He has not been able to keep any food and minimal fluids down. Patient is poor historian however was able to obtain patient's history from his primary medical physician. He has a past medical history of atrial fibrillation warfarin, liver cirrhosis, pulmonary nodule, daily alcohol abuse for many years as well as nicotine dependence. He denies any hematemesis, nonbilious emesis. States he has been afebrile. Denies any diarrhea or abdominal pain. He has not had any vomiting since he has been admitted to the hospital. He had a CT of the abdomen pelvis as part of his workup with findings of multiple liver lesions gastric wall thickening and had elevated LFTs. Gastroenterology was consulted for nausea and vomiting with liver lesions. Patient denies any previous history of upper e ndoscopy or colonoscopy. Denies any history of peptic ulcer disease, denies any acid reflux. He is unsure if he has had any weight loss. Apparently patient drinks about a case of beer a day and drinks at least 4 to 5 days a week. Reportedly he has not drink any alcohol in about a week to 2 weeks. 10/23/2024 Patient is seen and examined today as a follow-up. Yesterday he underwent upper endoscopy with findings of 4 cm raised ulcerated lesion in the antrum of the stomach extending into the pylorus causing pyloric stenosis status post multiple biopsies. Pyloric stenosis with gastric outlet obstruction and large amount of retained food in the stomach. Patient is tolerating some clear liquid diet. States he does have some slight abdominal discomfort. No vomiting. He has scheduled to undergo liver biopsy tomorrow. Objective - Vital Signs Vital signs: Vital Signs Temp 98.4 F 10/23/24 01:05 Pulse 93 10/23/24 01:05 Resp 16 10/23/24 01:05 BP 129/72 10/23/24 01:05 Pulse Ox 95 10/23/24 01:05 FiO2 Intake & Output 10/22/24 10/23/24 10/23/24 18:59 06:59 18:59 Intake Total 1969 Balance 1969 Intake: IV 100 Oral 1870 Other: Voiding Method Bedside Commode Urinal # Voids 4 2 - Exam General appearance: The patient is alert, oriented, appears in no acute distress. HET: Head is normocephalic and atraumatic. Conjunctiva pink. Sclera anicteric. Neck: Supple without lymphadenopathy. Abdomen: Soft, mid abdominal tenderness, distended. Extremities: Normal skin color and turgor. No pedal edema Skin: No rashes, no jaundice Neurological: No focal deficits. Alert and oriented. - Labs CBC & Chem 7: 10/20/24 12:43 10/22/24 04:43 Labs: Abnormal Lab Results - Last 24 Hours (Table) 10/22/24 Range/Units 04:43 Sodium 133 L (135-145) mmol/L BUN 7.4 L (9.0-27.0) mg/dL BUN/Creatinine Ratio 6.73 L (12.00-20.00) Ratio Calcium 8.0 L (8.7-10.3) mg/dL AST 111 H (14-35) U/L Alkaline Phosphatase 156 H (41-126) U/L Total Protein 6.0 L (6.2-8.2) g/dL Albumin 3.0 L (3.8-4.9) g/dL Albumin/Globulin Ratio 1.00 L (1.60-3.17) Ratio Assessment and Plan (1) Nausea and vomiting Narrative/Plan: 74-year-old male with nausea and vomiting for the last 5 to 6 days duration with inability to keep food or liquids down with no prior history of peptic ulcer disease or gastric reflux. CAT scan showing multiple liver lesions in a patient with history of daily alcohol use for many years with reported history of liver cirrhosis per PCP. Vomiting secondary to gastric outlet obstruction. Patient had upper endoscopy yesterday with findings of ulcerated lesion in the antrum of the stomach extending into the pylorus causing pyloric stenosis and gastric outlet obstruction. Patient has not had any further nausea or vomiting. Will keep on clear liquid diet. Current Visit: Yes Status: Acute Priority: Medium Code(s): R11.2 - NAUSEA WITH VOMITING, UNSPECIFIED SNOMED Code(s): 84195684 (2) Liver lesion Narrative/Plan: Liver biopsy ordered Current Visit: Yes Status: Acute Code(s): K76.9 - LIVER DISEASE, UNSPECIFIED SNOMED Code(s): 351392051 (3) Liver cirrhosis Narrative/Plan: Reported liver cirrhosis per PCP history, likely secondary to long-term alcohol abuse. Will obtain hepatitis panel. Recommend alcohol abstinence Current Visit: Yes Status: Acute Code(s): K74.60 - UNSPECIFIED CIRRHOSIS OF LIVER SNOMED Code(s): 70230060 (4) Pulmonary nodule Current Visit: Yes Status: Acute Code(s): R91.1 - SOLITARY PULMONARY NODULE SNOMED Code(s): 273136307 (5) Atrial fibrillation Current Visit: Yes Status: Acute Code(s): I48.91 - UNSPECIFIED ATRIAL FIBRILLATION SNOMED Code(s): 49362647 (6) Alcohol abuse Current Visit: Yes Status: Acute Code(s): F10.10 - ALCOHOL ABUSE, UNCOMPLICATED SNOMED Code(s): 07049546 (7) Nicotine dependence Current Visit: Yes Status: Acute Code(s): F17.200 - NICOTINE DEPENDENCE, UNSPECIFIED, UNCOMPLICATED SNOMED Code(s): 86200163 (8) Gastric outlet obstruction Current Visit: Yes Status: Acute Code(s): K31.1 - ADULT HYPERTROPHIC PYLORIC STENOSIS SNOMED Code(s): 455344993 (9) Lesion of stomach Narrative/Plan: 4 cm raised ulcerated lesion in the antrum of the stomach extending into the pylorus causing pyloric stenosis. Pyloric stenosis with gastric outlet obstruction. Current Visit: Yes Status: Acute Code(s): K31.9 - DISEASE OF STOMACH AND DUODENUM, UNSPECIFIED SNOMED Code(s): 633119168 Plan: 1. Continue symptomatic and supportive care 2. Clear liquid diet, Ensure clear added 3. Antiemetics as needed 4. Await stomach biopsies 5. Patient scheduled for liver biopsy tomorrow 6. Hold anticoagulation for liver biopsy 7. Will likely need to consult general surgery for possible G-tube placement for nutrition, will defer to medical team 8. Continue with recommendations from oncology 9. Rest of medical management per primary medical team Thank you for this consultation, we will continue to follow. Dr. Maria Victoria Mena I agree with the dictator's note, documented as a scribe by Marva Dyson.
--- NOTE | 2024-10-23 14:29 | P.GSCN ---
History of Present Illness Consult date: 10/23/24 History of present illness: CHIEF COMPLAINT: Nausea and vomiting HISTORY OF PRESENT ILLNESS: This is a 74-year-old male who presented to hospital with complaints of nausea and vomiting with weight loss and epigastric pain x 1 week. Patient had EGD completed yesterday with Dr. Mena that reported a 4 cm raised ulcerated lesion in the antrum of the stomach extending into the pylorus causing pyloric stenosis. Pyloric stenosis with gastric outlet obstruction and large amount of retained food in the stomach. Patient also has liver lesion is scheduled for biopsy of the liver lesion tomorrow with IR service. Patient with a known history of liver cirrhosis and heavy EtOH use. Also history of atrial fibrillation on Coumadin. Coumadin currently on hold. Denies any prior abdominal surgery. Surgical service has been consulted for J-tube placement. PAST MEDICAL HISTORY: Hyperlipidemia, hypertension, atrial fibrillation, liver cirrhosis PAST SURGICAL HISTORY: Orthopedic surgery MEDICATIONS: See below ALLERGIES: See below SOCIAL HISTORY: No illicit drug use. REVIEW OF SYSTEMS: CONSTITUTIONAL: Denies fever or chills. HEENT: Denies blurred vision, vision changes, or eye pain. Denies hemoptysis CARDIOVASCULAR: Denies chest pain or pressure. RESPIRATORY: No shortness of breath. GASTROINTESTINAL: See HPI for pertinent findings HEMATOLOGIC: Denies bleeding disorders. GENITOURINARY: Denies any blood in urine or increased urinary frequency. SKIN: Denies pruitis. Denies rash. PHYSICAL EXAM: VITAL SIGNS: Reviewed GENERAL: Well-developed in no acute distress. HEENT: No sclera icterus. Extraocular movements grossly intact. Moist buccal m ucosa. Head is atraumatic, normocephalic. No nasal drainage. ABDOMEN: Soft. Nondistended. Tenderness palpation epigastric left upper quadrant. No rebound or guarding noted. NEUROLOGIC: Alert and oriented. Cranial nerves II through XII grossly intact. LABORATORY DATA: WBC is 10.4 Hgb 14.4 platelets 249 INR 1.4 Sodium 133 potassium 4.0 creatinine 1.1 IMAGING: CT scan abdomen pelvis reports innumerable hypodense lesions throughout the liver most consistent with metastasis from an unknown primary malignancy. Nodularity of the liver which could be due to hepatic cirrhosis versus pseudocirrhosis from the lesions. Enlarged right lower lobe 1.1 cm pulmonary nodule concerning for metastasis. Circumferential wall thickening of the gastric antrum could be seen with malignancy versus gastritis. Scattered colonic diverticula. ASSESSMENT: 1. Pyloric stenosis with gastric outlet obstruction. EGD reports ulcerated lesion in the antrum of the stomach extending into the pylorus causing pyloric stenosis with gastric outlet obstruction. 2. Liver lesions PLAN: -Concerns for possible malignancy. Will await pathology results from biopsies on EGD. Then will make decision regarding possible J-tube placement -Patient can continue on his clear liquid diet -Consult IR service for PICC line placement. -Consult dietitian for TPN for nutrition support -Continue to hold Coumadin Physician Pumper Helper note has been reviewed by physician. Signing provider agrees with the documented findings, assessment, and plan of care. Past Medical History Past Medical History: Hyperlipidemia, Hypertension History of Any Multi-Drug Resistant Organisms: None Reported Past Surgical History: No Surgical Hx Reported Additional Past Surgical History / Comment(s): lung Past Anesthesia/Blood Transfusion Reactions: No Reported Reaction Smoking Status: Current some day smoker Medications and Allergies Home Medications Medication Instructions Recorded Confirmed Type Metoprolol Tartrate [Lopressor] 50 mg PO BID@0700,1500 10/20/24 10/20/24 History Warfarin [Coumadin] 2.5 mg PO DAILY@1500 10/20/24 10/20/24 History Allergies Allergy/AdvReac Type Severity Reaction Status Date / Time No Known Allergies Allergy Verified 10/20/24 15:40 Surgical - Exam Vital Signs Temp Pulse Resp BP Pulse Ox 98.5 F 98 20 126/71 98 10/20/24 11:24 10/20/24 11:24 10/20/24 11:24 10/20/24 11:24 10/20/24 11:24 Results - Labs 10/20/24 12:43 10/22/24 04:43
[2024-10-23 15:28] LABS: INR 1.3 (<1.2); Prothrombin Time 14.1 sec (10.0-12.5)
[2024-10-23 15:35] LABS: ALT 35 U/L (4-49); AST 94 U/L (17-59); African American GFR (CKD) >90 (>60 ml/min/1.73 sqM); Albumin 2.7 g/dL (3.5-5.0); Albumin/Globulin Ratio 0.8; Alkaline Phosphatase 147 U/L (38-126); Anion Gap 5 mmol/L; Blood Urea Nitrogen 9 mg/dL (9-20); Calcium 7.8 mg/dL (8.4-10.2); Carbon Dioxide 27 mmol/L (22-30); Chloride 99 mmol/L (98-107); Globulin 3.2 g/dL; Glucose 103 mg/dL (74-99); Magnesium 1.8 mg/dL (1.6-2.3); Non-African American GFR(CKD) 83 (>60 ml/min/1.73 sqM); Phosphorus 3.1 mg/dL (2.5-4.5); Potassium 3.8 mmol/L (3.5-5.1); Sodium 131 mmol/L (137-145); Total Bilirubin 1.8 mg/dL (0.2-1.3); Total Protein 5.9 g/dL (6.3-8.2)
--- NOTE | 2024-10-23 19:44 | P.PN ---
Subjective Progress Note Date: 10/23/24 S/p EGD yesterday with 4 cm raised ulcerated lesion in the antrum of the stomach concerning in the pylorus causing pyloric stenosis with gastric outlet obstruction and large amount of retained food in the stomach. Patient is reporting having increased nausea and some vomiting with eating today. Was able to tolerate small amount of Jell-O. Complaining of epigastric pain. General surgery has been consulted for evaluation for J-tube Objective - Vital Signs Vital signs: Vital Signs Temp 98 F 10/23/24 07:30 Pulse 81 10/23/24 07:30 Resp 16 10/23/24 07:30 BP 122/76 10/23/24 07:30 Pulse Ox 96 10/23/24 07:30 FiO2 Intake & Output 10/22/24 10/23/24 10/23/24 18:59 06:59 18:59 Intake Total 1970 Balance 1969 Intake: IV 100 Oral 1870 Other: Voiding Method Bedside Commode Urinal # Voids 4 2 - Constitutional General appearance: Present: average body habitus - EENT Eyes: Present: anicteric sclerae, EOMI ENT: Present: hearing grossly normal - Respiratory Details: breathing is even and unlabored - Cardiovascular Details: skin warm and dry - Gastrointestinal General gastrointestinal: Present: distended, tenderness Localized gastrointestinal: tender: LUQ, epigastric periumbilical - Integumentary Integumentary: Absent: cyanotic - Psychiatric Psychiatric: Present: A&O x's 3 - Labs CBC & Chem 7: 10/20/24 12:43 10/23/24 15:02 Assessment and Plan (1) Abnormal CT scan Current Visit: Yes Status: Acute Priority: High Code(s): R93.89 - ABNORMAL FINDINGS ON DX IMAGING OF OTH BODY STRUCTURES SNOMED Code(s): 359630571 (2) Nausea and vomiting Current Visit: Yes Status: Acute Priority: Medium Code(s): R11.2 - NAUSEA WITH VOMITING, UNSPECIFIED SNOMED Code(s): 54578298 Plan: Nausea, vomiting, liver lesions: Patient presented to the emergency room for nausea vomiting and associated decreased oral intake over the last 1 week. He endorses approximate 30 pound weight loss over the last couple weeks, but family is unsure if this is acc urate. Family reports patient is a heavy daily drinker, consuming up to a case of beer daily. Patient denies bowel changes, hematochezia and melena and hematemesis -Upon admit CT abdomen and pelvis with contrast showing innumerable hypodense lesions throughout the liver. Additionally there is surface nodularity of the liver which could be due to hepatic cirrhosis versus pseudocirrhosis from the noted lesions. Enlarged right lower lobe 1.1 cm pulmonary nodule. Circumferential wall thickening of the gastric antrum. Scattered colonic diverticuli without evidence of acute diverticulitis. -GI consulted. S/p EGD yesterday with 4 cm raised ulcerated lesion in the antrum of the stomach concerning in the pylorus causing pyloric stenosis with gastric outlet obstruction and large amount of retained food in the stomach. -General surgery has been consulted for evaluation for J-tube -IR consult placed for liver biopsy. Biopsy scheduled for 10/24 -Will plan for outpt PET CT and subsequent clinic f/u to further discuss treatment options Discussed findings and concerns for metastatic disease. POC was discussed and pt was agreeable to the same. All questions and concerns were addressed Case briefly discussed with GI team and IR
--- NOTE | 2024-10-24 04:53 | P.PN ---
Subjective Progress Note Date: 10/23/24 This is a pleasant 74-year-old male who presented to the emergency department with intense abdominal pain along with nausea and vomiting being closely monitored. Patient reports he follows with Dr. Damion Candelario' WINSTON Kelly at the [facility] in [place] with a past medical history of chronic A-fib, nicotine dependence, alcoholic cirrhosis, right pulmonary nodule, daily alcohol use and obesity. Patient denies any other illicit drug use and reports has not had a drink in over a week and a half as he has not been feeling well. Per family patient has not been eating the greatest and has been having excessive nausea and vomiting. Patient also was noted to have multiple episodes of diarrhea which has since resolved. Patient was admitted after undergoing CT abdomen which shows innumerable hypodense lesions throughout the liver most consistent with metastasis from an unknown primary malignancy, additionally there is surface nodularity of the liver which could be due to hepatic cirrhosis versus pseudocirrhosis from the lesions, and an enlarged right lower lobe 1.1 cm nodule concerning for metastasis as well as circumferential wall thickening of the gastric antrum which could represent malignancy versus gastritis along with scattered colonic diverticula without evidence of acute diverticulitis. Labs reveal a normal white count of 10.4, hemoglobin 14.4, platelets 249, sodium 132, potassium 4.0, BUN 14 and creatinine 1.23. Total bili is 1.6 with an AST of 149 and ALT is 46 urinalysis was negative, and influenza, RSV, COVID were all negative as well. Patient was started on gentle hydration along with supportive care and pain management with a consult to GI as well as oncology and interventional radiology for possible biopsy. 10/22/2024 Patient is seen in follow-up today with oncology and GI following. Patient unable to tolerate the GoLytely bowel prep and will be undergoing EGD for further evaluation. Patient is currently n.p.o. although requesting a diet and advance in diet as he feels hungry. Patient has had no further bowel movements, highly unlikely for C. difficile. Patient is also scheduled for biopsy with interventional radiology although patient had been taking Coumadin and will need to wait until Sunday to perform this. Patient is afebrile denies any further abdominal pain and denies any chest pain other than intermittently. Patient reports to feeling epigastric discomfort that resolves. 10/23/2024 Patient is seen in follow-up today with multiple consultations following. Patient is status post EGD maintained on clear liquids. Coumadin is on hold patient is scheduled to undergo biopsy of the liver with interventional radiology tomorrow. General surgery consulted in the event patient will need a J-tube placement for oral intake per recommendations of GI. Patient will be scheduled for PICC line and possible TPN initiation while awaiting biopsies reports. Patient is afebrile and denies any chest pain or shortness of breath. Patient reports to feeling improved with some pain although is currently managed on current regimen. Patient did have an episode of nausea but will continue supportive care. Review of systems: Constitutional: No reports of fatigue, fever, or chills Cardiovascular: No reports of chest pain or palpitations Respiratory: No reports of shortness of breath or cough GI: reports of nausea, vomiting x 1 today, no further diarrhea, requesting food reports improved abdominal pain : No reports of dysuria or retention Neurovascular: reports of generalized weakness All medications have been reviewed PHYSICAL EXAMINATION: GENERAL: The patient is alert and oriented x3, not in any acute distress. Well developed, elderly appearing HEENT: Pupils are round and equally reacting to light. EOMI. No scleral icterus. No conjunctival pallor. Normocephalic, atraumatic. No pharyngeal erythema. No thyromegaly. CARDIOVASCULAR: S1 and S2 muffled PULMONARY: Diminished breath sounds bilaterally otherwise chest is clear to auscultation, no wheezing or crackles. ABDOMEN: Soft, mildly tender, nondistended, normoactive bowel sounds. No palpable organomegaly. MUSCULOSKELETAL: No joint swelling or deformity. EXTREMITIES: No cyanosis, clubbing, or pedal edema. NEUROLOGICAL: Gross neurological examination did not reveal any focal deficits. SKIN: No rashes. Assessment: Abdominal pain with nausea and vomiting likely secondary to a 4 cm ulcerated lesion noted on the antrum causing significant pyloric stenosis as found on EGD multiple hypodense lesions noted throughout the liver most consistent with metastasis Nausea/vomiting/diarrhea, acute gastritis, status post EGD revealing a 4 cm ulcerated lesion causing significant pyloric stenosis History of chronic A-fib, maintained on Coumadin, currently being held as patient is scheduled to undergo biopsy of the liver Hypertension Continued ongoing nicotine dependence Chronic daily alcohol use, has not had a drink in approximately 1.5 weeks Acute kidney injury, ATN, likely secondary to nausea, vomiting, diarrhea Diarrhea, rule out C. difficile, elevated LFTs and total bilirubin, likely secondary to chronic alcohol use Known right pulmonary nodule with no outpatient follow-up, noted again on CT History of hyperlipidemia GI prophylaxis DVT prophylaxis Full code Plan: Patient was at [facility] and discharged as he was having intractable tone sea and vomiting with inability to hold down anything oral and was sent home on clear to full liquids instructed to follow-up with primary care provider. Per family at the bedside patient continued to be unable to tolerate oral intake and keep anything down have multiple episodes of nausea and vomiting with diarrhea came here for further evaluation. Patient is a poor historian and called the primary care providers office of which he sees nurse practitioner or PA for Dr. Kodak Kelly and more of a history was obtained. Patient is on Coumadin and will hold for now as there are tentative plans for biopsy of the liver as there are multiple hypodense lesions noted throughout likely metastasis. Tentatively scheduled for IR guided biopsy on Sunday GI following and unable to tolerate the colonoscopy prep although underwent EGD as mentioned previously Repeat labs ordered from GI as well as oncology. Patient to continue on clear liquids and gentle hydration and will follow-up on repeat labs. Replace electrolytes per protocol. Continue only clear liquids and will be n.p.o. at midnight for patient to undergo biopsy. General surgery consulted for possibility of G-tube placement given significant pyloric stenosis per recommendations of GI. Patient will receive a PICC line and initiating TPN per general surgery for now while awaiting biopsies Patient was having multiple episodes of diarrhea although has since subsided it is C. difficile sample has been ordered and will cancel as patient has not had another bowel movement. Highly unlikely of C. difficile Encouraged increase activity as tolerated Will continue pain management and recommend avoiding narcotics if possible given patient's age. Family is also concerned of not being as alert as normal and will monitor closely for any hospital-acquired delirium. May use Seroquel as needed at night The impression and plan of care has been dictated by Emma Garcia, Nurse Practitioner as directed. Dr. Yazmin MD I have performed a history and examination and MDM of this patient, discussed the same with the dictator, and agree with the dictator's assessment and plan as written ,documented as a scribe. Based on total visit time, I have performed more than 50% of the visit. Objective - Vital Signs Vital signs: Vital Signs Temp 98 F 10/23/24 07:30 Pulse 81 10/23/24 07:30 Resp 16 10/23/24 07:30 BP 122/76 10/23/24 07:30 Pulse Ox 96 10/23/24 07:30 FiO2 Intake & Output 10/22/24 10/23/24 10/23/24 18:59 06:59 18:59 Intake Total 1969 Balance 1969 Intake: IV 100 Oral 1870 Other: Voiding Method Bedside Commode Urinal # Voids 4 2 - Labs CBC & Chem 7: 10/20/24 12:43 10/23/24 15:02
[2024-10-24 04:54] LABS: Ionized Calcium 4.5 mg/dL (4.5-5.3)
[2024-10-24 05:01] LABS: African American GFR (CKD) >90 (>60 ml/min/1.73 sqM); Anion Gap 7 mmol/L; Blood Urea Nitrogen 8 mg/dL (9-20); Carbon Dioxide 23 mmol/L (22-30); Chloride 100 mmol/L (98-107); Glucose 82 mg/dL (74-99); Magnesium 1.7 mg/dL (1.6-2.3); Non-African American GFR(CKD) 86 (>60 ml/min/1.73 sqM); Potassium 3.8 mmol/L (3.5-5.1); Sodium 130 mmol/L (137-145)
--- NOTE | 2024-10-24 09:06 | XR ---
EXAMINATION TYPE: XR chest 1V portable DATE OF EXAM: 10/24/2024 COMPARISON: NONE CLINICAL INDICATION: Male, 74 years old with history of Picc line placement; TECHNIQUE: Single AP portable upright view of the chest is obtained. FINDINGS: New left-sided PICC line with tip not well-seen but likely just short of the SVC. Patchy bi basilar opacity favors atelectasis. No pneumothorax seen bilaterally. The cardiac silhouette size is mildly enlarged. The osseous structures are intact. IMPRESSION: As above. [facility], , 10/24/2024 9:03 AM
[2024-10-24] MEDS: HYDROmorphone 0.5 MG/0.5 ML SYRINGE IVP STA (10:12)
--- NOTE | 2024-10-24 10:40 | CT ---
EXAMINATION TYPE: CT biopsy liver DATE OF EXAM: 10/24/2024 10:36 AM COMPARISON: CT CLINICAL INDICATION:Male, 74 years old with history of Liver mass; TECHNIQUE: TECHNIQUE: CT guided percutaneous biopsy of using coaxial method. One or more CT dose reduction strategies were utilized during this examination. Total CT dose 758 mGycm. FINDINGS: The procedure was explained to the patient including risks of bleeding, bruising, infection, damage t o nearby organs and need for additional therapy including potential surgery. All questions were answ ered and consent was obtained. The previous studies were reviewed. The patient was placed on the CT couch in the supine position. The overlying skin was marked and prepped using sterile method. Timeout was taken per protocol. Follo wing administration of local anesthesia a 17 gauge coaxial needle was introduced on the left hepatic lobe mass. The coaxial needle tip was directed into the mass with CT guidance. Three 18 gauge coaxi al biopsies were then obtained. Following the procedure the needle was removed and sterile dressin g was applied to the percutaneous site. Post biopsy imaging demonstrated no evidence of hemorrhage. Patient was taken for postprocedure observation in stable condition. IMPRESSIONS: Status post percutaneous hepatic lobe mass biopsy as described above. Pathology results pending. [facility], , 10/24/2024 10:38 AM
--- NOTE | 2024-10-24 11:53 | P.PN ---
Subjective Progress Note Date: 10/24/24 SURGICAL PROGRESS NOTE CHIEF COMPLAINT: Nausea and vomiting HISTORY OF PRESENT ILLNESS: Patient is status post EGD with Dr. Mena that reported a 4 cm raised ulcerated lesion in the antrum of the stomach extending into the pylorus causing pyloric stenosis. Pyloric stenosis with gastric outlet obstruction and large amount of retained food in the stomach. Pathology results still pending. Patient is able to tolerate small amount of liquids. He is scheduled for liver biopsy today as well as a PICC line placement. Afebrile. Sodium 130 potassium 3.8 creatinine 0.86 Patient seen and examined with Dr. Cummins PHYSICAL EXAM: VITAL SIGNS: Reviewed. GENERAL: Well-developed in no acute distress. ABDOMEN: Soft. Nondistended. NEUROLOGIC: Alert and oriented. Cranial nerves II through XII grossly intact. ASSESSMENT: 1. Pyloric stenosis with gastric outlet obstruction. EGD reports ulcerated lesion in the antrum of the stomach extending into the pylorus causing pyloric stenosis with gastric outlet obstruction. 2. Liver lesions PLAN: -Awaiting pathology results from EGD to evaluate for possible malignancy versus peptic ulcer disease. Then surgeon will make decision regarding possible J-tube placement -Continue clear liquid diet -IR consulted for PICC line placement -Dietitian consulted for TPN for nutrition support Physician Sample Sewer note has been reviewed by physician. Signing provider agrees with the documented findings, assessment, and plan of care. Objective - Vital Signs Vital signs: Vital Signs Temp 98.1 F 10/24/24 08:27 Pulse 75 10/24/24 10:30 Resp 16 10/24/24 10:30 BP 155/86 10/24/24 10:30 Pulse Ox 98 10/24/24 10:30 FiO2 Intake & Output 10/23/24 10/24/24 10/24/24 18:59 06:59 18:59 Intake Total 900 0 Balance 900 0 Weight 72.575 kg Intake: Intake, IV Titration 900 Amount Sodium Chloride 0.9% 1, 900 000 ml @ 75 mls/hr IV . [id number] MEKA Rx#:[id number] Oral 0 Other: Voiding Method Toilet Urinal # Voids 2 - Labs CBC & Chem 7: 10/20/24 12:43 10/24/24 03:57 Labs: Abnormal Lab Results - Last 24 Hours (Table) 02/10/23/24 10/24/24 Range/Units 15:02 15:02 03:57 PT 14.1 H (10.0-12.5) sec INR 1.3 H (<1.2) Sodium 131 L 130 L (137-145) mmol/L BUN 8 L (9-20) mg/dL Glucose 103 H (74-99) mg/dL Calcium 7.8 L 8.0 L (8.4-10.2) mg/dL Total Bilirubin 1.8 H (0.2-1.3) mg/dL AST 94 H (17-59) U/L Alkaline Phosphatase 147 H (38-126) U/L Total Protein 5.9 L (6.3-8.2) g/dL Albumin 2.7 L (3.5-5.0) g/dL
[2024-10-24] MEDS: MVI, ADULT NO.4 WITH VIT K 10 ML, TRACE (CONC-1ML/DOSE) 1 ML in AMINO ACID 5%-D20W+LYTE... IV ONE (12:38)
[2024-10-24] MEDS: FAT EMULSION 20% 250 ML in EMPTY BAG 1 BAG IV SCH (12:38)
--- NOTE | 2024-10-24 13:21 | P.PN ---
Subjective Progress Note Date: 10/24/24 Principal diagnosis: Vomiting, ulcerated stomach lesion This a pleasant 74-year-old male who presented to the emergency department after being seen twice at the emergency department in [facility]. Patient has been having nausea and vomiting for the last 5 to 6 days duration. He has not been able to keep any food and minimal fluids down. Patient is poor historian however was able to obtain patient's history from his primary medical physician. He has a past medical history of atrial fibrillation warfarin, liver cirrhosis, pulmonary nodule, daily alcohol abuse for many years as well as nicotine dependence. He denies any hematemesis, nonbilious emesis. States he has been afebrile. Denies any diarrhea or abdominal pain. He has not had any vomiting since he has been admitted to the hospital. He had a CT of the abdomen pelvis as part of his workup with findings of multiple liver lesions gastric wall thickening and had elevated LFTs. Gastroenterology was consulted for nausea and vomiting with liver lesions. Patient denies any previous history of upper e ndoscopy or colonoscopy. Denies any history of peptic ulcer disease, denies any acid reflux. He is unsure if he has had any weight loss. Apparently patient drinks about a case of beer a day and drinks at least 4 to 5 days a week. Reportedly he has not drink any alcohol in about a week to 2 weeks. 10/23/2024 Patient is seen and examined today as a follow-up. Yesterday he underwent upper endoscopy with findings of 4 cm raised ulcerated lesion in the antrum of the stomach extending into the pylorus causing pyloric stenosis status post multiple biopsies. Pyloric stenosis with gastric outlet obstruction and large amount of retained food in the stomach. Patient is tolerating some clear liquid diet. States he does have some slight abdominal discomfort. No vomiting. He has scheduled to undergo liver biopsy tomorrow. 10/24/2024 Patient is seen and examined today as a follow-up. He states he is doing well. He is smiling. Denies any acute changes through the night. He is tolerating clear liquid diet. He had PICC line placed. He is scheduled to undergo liver biopsy today. Stomach biopsy pending. Objective - Vital Signs Vital signs: Vital Signs Temp 98.7 F 10/24/24 01:55 Pulse 89 10/24/24 01:55 Resp 12 10/24/24 01:55 BP 126/79 10/24/24 01:55 Pulse Ox 95 10/24/24 01:55 FiO2 Intake & Output 10/23/24 10/24/24 10/24/24 18:59 06:59 18:59 Intake Total 900 0 Balance 900 0 Weight 72.575 kg Intake: Intake, IV Titration 900 Amount Sodium Chloride 0.9% 1, 900 000 ml @ 75 mls/hr IV . [id number] MEKA Rx#:[id number] Oral 0 Other: Voiding Method Toilet Urinal # Voids 2 - Exam General appearance: The patient is alert, oriented, appears in no acute distress. HET: Head is normocephalic and atraumatic. Conjunctiva pink. Sclera anicteric. Neck: Supple without lymphadenopathy. Abdomen: Soft, nontender, mild distention. Extremities: Normal skin color and turgor. No pedal edema Skin: No rashes, no jaundice Neurological: No focal deficits. Alert and oriented. - Labs CBC & Chem 7: 10/20/24 12:43 10/24/24 03:57 Labs: Abnormal Lab Results - Last 24 Hours (Table) 10/23/24 10/23/24 10/24/24 Range/Units 15:02 15:02 03:57 PT 14.1 H (10.0-12.5) sec INR 1.3 H (<1.2) Sodium 131 L 130 L (137-145) mmol/L BUN 8 L (9-20) mg/dL Glucose 103 H (74-99) mg/dL Calcium 7.8 L 8.0 L (8.4-10.2) mg/dL Total Bilirubin 1.8 H (0.2-1.3) mg/dL AST 94 H (17-59) U/L Alkaline Phosphatase 147 H (38-126) U/L Total Protein 5.9 L (6.3-8.2) g/dL Albumin 2.7 L (3.5-5.0) g/dL Assessment and Plan (1) Nausea and vomiting Narrative/Plan: 74-year-old male with nausea and vomiting for the last 5 to 6 days duration with inability to keep food or liquids down with no prior history of peptic ulcer disease or gastric reflux. CAT scan showing multiple liver lesions in a patient with history of daily alcohol use for many years with reported history of liver cirrhosis per PCP. Vomiting secondary to gastric outlet obstruction. Patient had upper endoscopy yesterday with findings of ulcerated lesion in the antrum of the stomach extending into the pylorus causing pyloric stenosis and gastric outlet obstruction. Patient has not had any further nausea or vomiting. Will keep on clear liquid diet. Current Visit: Yes Status: Acute Priority: Medium Code(s): R11.2 - NAUSEA WITH VOMITING, UNSPECIFIED SNOMED Code(s): 46472931 (2) Liver lesion Narrative/Plan: Liver biopsy ordered Current Visit: Yes Status: Acute Code(s): K76.9 - LIVER DISEASE, UNSPECIFIED SNOMED Code(s): 112996435 (3) Liver cirrhosis Narrative/Plan: Reported liver cirrhosis per PCP history, likely secondary to long-term alcohol abuse. Will obtain hepatitis panel. Recommend alcohol abstinence Current Visit: Yes Status: Acute Code(s): K74.60 - UNSPECIFIED CIRRHOSIS OF LIVER SNOMED Code(s): 05183874 (4) Pulmonary nodule Current Visit: Yes Status: Acute Code(s): R91.1 - SOLITARY PULMONARY NODULE SNOMED Code(s): 081572653 (5) Atrial fibrillation Current Visit: Yes Status: Acute Code(s): I48.91 - UNSPECIFIED ATRIAL FIBRILLATION SNOMED Code(s): 12073623 (6) Alcohol abuse Current Visit: Yes Status: Acute Code(s): F10.10 - ALCOHOL ABUSE, UNCOMPLICATED SNOMED Code(s): 37959259 (7) Nicotine dependence Current Visit: Yes Status: Acute Code(s): F17.200 - NICOTINE DEPENDENCE, UNSPECIFIED, UNCOMPLICATED SNOMED Code(s): 47417123 (8) Gastric outlet obstruction Current Visit: Yes Status: Acute Code(s): K31.1 - ADULT HYPERTROPHIC PYLORIC STENOSIS SNOMED Code(s): 013089580 (9) Lesion of stomach Narrative/Plan: 4 cm raised ulcerated lesion in the antrum of the stomach extending into the pylorus causing pyloric stenosis. Pyloric stenosis with gastric outlet obstruction. Current Visit: Yes Status: Acute Code(s): K31.9 - DISEASE OF STOMACH AND DUODENUM, UNSPECIFIED SNOMED Code(s): 109534402 Plan: 1. Continue symptomatic and supportive care 2. Clear liquid diet, Ensure clear added 3. Antiemetics as needed 4. Stomach biopsy pending 5. Patient is scheduled for liver biopsy today 6. General surgery on consultation for possible G-tube placement 7. Continue with recommendations from oncology 8. Rest of medical management per primary medical team Thank you for this consultation, no further workup from gastroenterology. We will sign off at this time. Dr. Maria Victoria Mena I agree with the dictator's note, documented as a scribe by Marva Dyson.
--- NOTE | 2024-10-24 19:32 | P.PN ---
Subjective Progress Note Date: 10/24/24 S/p liver biopsy this morning. Leonidas abd pain today. Had n/v this morning after drinking a cup of water. Pt has been started on TPN Objective - Vital Signs Vital signs: Vital Signs Temp 98.3 F 10/24/24 13:25 Pulse 86 10/24/24 13:25 Resp 14 10/24/24 13:25 BP 149/97 10/24/24 13:25 Pulse Ox 95 10/24/24 13:25 FiO2 Intake & Output 10/23/24 10/24/24 10/24/24 18:59 06:59 18:59 Intake Total 900 0 Balance 900 0 Weight 72.575 kg Intake: Intake, IV Titration 900 Amount Sodium Chloride 0.9% 1, 900 000 ml @ 75 mls/hr IV . [id number] MEKA Rx#:[id number] Oral 0 Other: Voiding Method Toilet Urinal # Voids 2 - Constitutional General appearance: Present: average body habitus, no acute distress - EENT Eyes: Present: anicteric sclerae, EOMI ENT: Present: hearing grossly normal - Respiratory Details: breathing is even and unlabored - Cardiovascular Details: skin warm and dry - Gastrointestinal General gastrointestinal: Present: distended, soft. Absent: tenderness - Integumentary Integumentary: Absent: cyanotic, jaundiced - Neurologic Neurologic: Present: CNII-XII intact - Psychiatric Psychiatric: Present: A&O x's 3 - Labs CBC & Chem 7: 10/20/24 12:43 10/24/24 03:57 Labs: Abnormal Lab Results - Last 24 Hours (Table) 10/23/24 10/23/24 10/24/24 Range/Units 15:02 15:02 03:57 PT 14.1 H (10.0-12.5) sec INR 1.3 H (<1.2) Sodium 131 L 130 L (137-145) mmol/L BUN 8 L (9-20) mg/dL Glucose 103 H (74-99) mg/dL Calcium 7.8 L 8.0 L (8.4-10.2) mg/dL Total Bilirubin 1.8 H (0.2-1.3) mg/dL AST 94 H (17-59) U/L Alkaline Phosphatase 147 H (38-126) U/L Total Protein 5.9 L (6.3-8.2) g/dL Albumin 2.7 L (3.5-5.0) g/dL Assessment and Plan (1) Abnormal CT scan Current Visit: Yes Status: Acute Priority: High Code(s): R93.89 - ABNORMAL FINDINGS ON DX IMAGING OF OTH BODY STRUCTURES SNOMED Code(s): 657458778 (2) Nausea and vomiting Current Visit: Yes Status: Acute Priority: Medium Code(s): R11.2 - NAUSEA WITH VOMITING, UNSPECIFIED SNOMED Code(s): 31027450 Plan: Nausea, vomiting, liver lesions: Patient presented to the emergency room for nausea vomiting and associated decreased oral intake over the last 1 week. He endorses approximate 30 pound weight loss over the last couple weeks, but family is unsure if this is accurate. Family reports patient is a heavy daily drinker, consuming up to a case of beer daily. Patient denies bowel changes, hematochezia and melena and hematemesis -Upon admit CT abdomen and pelvis with contrast showing innumerable hypodense lesions throughout the liver. Additionally there is surface nodularity of the liver which could be due to hepatic cirrhosis versus pseudocirrhosis from the noted lesions. Enlarged right lower lobe 1.1 cm pulmonary nodule. Circumferential wall thickening of the gastric antrum. Scattered colonic diverticuli without evidence of acute diverticulitis. -GI consulted. S/p EGD with 4 cm raised ulcerated lesion in the antrum of the stomach concerning in the pylorus causing pyloric stenosis with gastric outlet obstruction and large amount of retained food in the stomach. Pathology pending -General surgery has been consulted for evaluation for J-tube. Fedding tube on hold until path resulted. TPN has been started -IR consult placed for liver biopsy. Biopsy completed this morning, path pending -Will plan for outpt PET CT and subsequent clinic f/u to further discuss treatment options Discussed findings and concerns for metastatic disease. POC was discussed and pt was agreeable to the same. All questions and concerns were addressed Case discussed with admitting team Dr limaests: I have seen and examined pt, performed H&P, developed impression and plan of care. Discussed with dictator. Agree with documentation, dictated as a scribe.
[2024-10-25 04:05] LABS: African American GFR (CKD) >90 (>60 ml/min/1.73 sqM); Anion Gap 7 mmol/L; Blood Urea Nitrogen 7 mg/dL (9-20); Calcium 8.2 mg/dL (8.4-10.2); Carbon Dioxide 27 mmol/L (22-30); Chloride 96 mmol/L (98-107); Glucose 118 mg/dL (74-99); Magnesium 1.9 mg/dL (1.6-2.3); Non-African American GFR(CKD) 86 (>60 ml/min/1.73 sqM); Phosphorus 3.2 mg/dL (2.5-4.5); Potassium 3.4 mmol/L (3.5-5.1); Sodium 130 mmol/L (137-145)
[2024-10-25] MEDS ORDERED: Potassium Replacement Protocol 1 EACH MISC MISCELLANE PRN (06:07)
--- NOTE | 2024-10-25 06:21 | P.PN ---
Subjective Progress Note Date: 10/24/24 This is a pleasant 74-year-old male who presented to the emergency department with intense abdominal pain along with nausea and vomiting being closely monitored. Patient reports he follows with Dr. Damion Candelario' WINSTON Kelly at the [facility] in [place] with a past medical history of chronic A-fib, nicotine dependence, alcoholic cirrhosis, right pulmonary nodule, daily alcohol use and obesity. Patient denies any other illicit drug use and reports has not had a drink in over a week and a half as he has not been feeling well. Per family patient has not been eating the greatest and has been having excessive nausea and vomiting. Patient also was noted to have multiple episodes of diarrhea which has since resolved. Patient was admitted after undergoing CT abdomen which shows innumerable hypodense lesions throughout the liver most consistent with metastasis from an unknown primary malignancy, additionally there is surface nodularity of the liver which could be due to hepatic cirrhosis versus pseudocirrhosis from the lesions, and an enlarged right lower lobe 1.1 cm nodule concerning for metastasis as well as circumferential wall thickening of the gastric antrum which could represent malignancy versus gastritis along with scattered colonic diverticula without evidence of acute diverticulitis. Labs reveal a normal white count of 10.4, hemoglobin 14.4, platelets 249, sodium 132, potassium 4.0, BUN 14 and creatinine 1.23. Total bili is 1.6 with an AST of 149 and ALT is 46 urinalysis was negative, and influenza, RSV, COVID were all negative as well. Patient was started on gentle hydration along with supportive care and pain management with a consult to GI as well as oncology and interventional radiology for possible biopsy. 10/22/2024 Patient is seen in follow-up today with oncology and GI following. Patient unable to tolerate the GoLytely bowel prep and will be undergoing EGD for further evaluation. Patient is currently n.p.o. although requesting a diet and advance in diet as he feels hungry. Patient has had no further bowel movements, highly unlikely for C. difficile. Patient is also scheduled for biopsy with interventional radiology although patient had been taking Coumadin and will need to wait until Sunday to perform this. Patient is afebrile denies any further abdominal pain and denies any chest pain other than intermittently. Patient reports to feeling epigastric discomfort that resolves. 10/23/2024 Patient is seen in follow-up today with multiple consultations following. Patient is status post EGD maintained on clear liquids. Coumadin is on hold patient is scheduled to undergo biopsy of the liver with interventional radiology tomorrow. General surgery consulted in the event patient will need a J-tube placement for oral intake per recommendations of GI. Patient will be scheduled for PICC line and possible TPN initiation while awaiting biopsies reports. Patient is afebrile and denies any chest pain or shortness of breath. Patient reports to feeling improved with some pain although is currently managed on current regimen. Patient did have an episode of nausea but will continue supportive care. 10/24/2024 Patient is seen in follow-up today currently vomiting is daughter reports he does drink a whole glass of water. Patient to be n.p.o. except occasional sips with medicines and ice chips this patient is not tolerating much oral intake. TPN being initiated and patient does have a PICC line. Patient is status post biopsy of the liver which is pending and pathology from EGD remains pending as well. G-tube placement per general surgery is on hold while awaiting path results. Patient is afebrile reports some mild abdominal pain with no reports of chest pain or shortness of breath. Patient reports has been getting up and getting to the bathroom with no difficulties. Review of systems: Constitutional: No reports of fatigue, fever, or chills Cardiovascular: No reports of chest pain or palpitations Respiratory: No reports of shortness of breath or cough GI: reports of nausea, vomiting x 1 today, no further diarrhea : No reports of dysuria or retention Neurovascular: reports of generalized weakness All medications have been reviewed PHYSICAL EXAMINATION: GENERAL: The patient is alert and oriented x3, not in any acute distress. Well developed, elderly appearing HEENT: Pupils are round and equally reacting to light. EOMI. No scleral icterus. No conjunctival pallor. Normocephalic, atraumatic. No pharyngeal erythema. No thyromegaly. CARDIOVASCULAR: S1 and S2 muffled PULMONARY: Diminished breath sounds bilaterally otherwise chest is clear to auscultation, no wheezing or crackles. ABDOMEN: Soft, mildly tender, nondistended, normoactive bowel sounds. No palpable organomegaly. Liver biopsy site with bandage that is dry and intact MUSCULOSKELETAL: No joint swelling or deformity. EXTREMITIES: No cyanosis, clubbing, or pedal edema. NEUROLOGICAL: Gross neurological examination did not reveal any focal deficits. SKIN: No rashes. Assessment: Abdominal pain with nausea and vomiting likely secondary to a 4 cm ulcerated lesion noted on the antrum causing significant pyloric stenosis as found on EGD multiple hypodense lesions noted throughout the liver most consistent with metastasis Nausea/vomiting/diarrhea, acute gastritis, status post EGD revealing a 4 cm ulcerated lesion causing significant pyloric stenosis History of chronic A-fib, maintained on Coumadin, currently being held as pa albertnt is scheduled to undergo biopsy of the liver Hypertension Continued ongoing nicotine dependence Chronic daily alcohol use, has not had a drink in approximately 1.5 weeks Acute kidney injury, ATN, likely secondary to nausea, vomiting, diarrhea Diarrhea, ruled out C. difficile, no further episodes of diarrhea elevated LFTs and total bilirubin, likely secondary to chronic alcohol use Known right pulmonary nodule with no outpatient follow-up, noted again on CT History of hyperlipidemia GI prophylaxis DVT prophylaxis Full code Plan: Patient was at [facility] and discharged as he was having intractable nausea and vomiting with inability to hold down anything oral and was sent home on clear to full liquids instructed to follow-up with primary care provider. Per family at the bedside patient continued to be unable to tolerate oral intake and keep anything down have multiple episodes of nausea and vomiting with diarrhea came here for further evaluation. Patient is a poor historian and called the primary care providers office of which he sees nurse practitioner or PA for Alexander Mcguire and more of a history was obtained. Patient is on Coumadin and was being held for biopsy which was done today. Will discuss with consults regarding resuming Coumadin with pharmacy to dose GI following and unable to tolerate the colonoscopy prep although underwent EGD as mentioned previously Patient has received a PICC line and is being started on TPN. Continue n.p.o. as patient is not tolerating much oral intake other than a few sips and occasional ice chips General surgery consulted for possibility of G-tube placement given significant pyloric stenosis per recommendations of GI. Awaiting biopsy results to further discuss G-tube placement Encouraged increase activity as tolerated Will continue pain management and recommend avoiding narcotics if possible given patient's age. Family is also concerned of not being as alert as normal and will monitor closely for any hospital-acquired delirium. May use Seroquel as needed at night The impression and plan of care has been dictated by Emma Garcia, Nurse Practitioner as directed. Dr. Yazmin MD I have performed a history and examination and MDM of this patient, discussed the same with the dictator, and agree with the dictator's assessment and plan as written ,documented as a scribe. Based on total visit time, I have performed more than 50% of the visit. Objective - Vital Signs Vital signs: Vital Signs Temp 98.1 F 10/24/24 08:27 Pulse 79 10/24/24 10:10 Resp 16 10/24/24 10:10 BP 162/92 10/24/24 10:10 Pulse Ox 96 10/24/24 10:10 FiO2 Intake & Output 10/23/24 10/24/24 10/24/24 18:59 06:59 18:59 Intake Total 900 0 Balance 900 0 Weight 72.575 kg Intake: Intake, IV Titration 900 Amount Sodium Chloride 0.9% 1, 900 000 ml @ 75 mls/hr IV . [id number] MEKA Rx#:[id number] Oral 0 Other: Voiding Method Toilet Urinal # Voids 2 - Labs CBC & Chem 7: 10/20/24 12:43 10/25/24 03:05 Labs: Abnormal Lab Results - Last 24 Hours (Table) 10/23/24 10/23/24 10/24/24 Range/Units 15:02 15:02 03:57 PT 14.1 H (10.0-12.5) sec INR 1.3 H (<1.2) Sodium 131 L 130 L (137-145) mmol/L BUN 8 L (9-20) mg/dL Glucose 103 H (74-99) mg/dL Calcium 7.8 L 8.0 L (8.4-10.2) mg/dL Total Bilirubin 1.8 H (0.2-1.3) mg/dL AST 94 H (17-59) U/L Alkaline Phosphatase 147 H (38-126) U/L Total Protein 5.9 L (6.3-8.2) g/dL Albumin 2.7 L (3.5-5.0) g/dL
[2024-10-25] MEDS: POTASSIUM CHLORIDE 10 MEQ in WATER FOR INJECTION 1 100ML.BAG IVPB SCH (06:46)
[2024-10-25] MEDS: 1: MVI, ADULT NO.4 WITH VIT K 10 ML, TRACE (CONC-1ML/DOSE) 1 ML in AMINO ACID 5%-D20W+LY IV SCH (16:03)
--- NOTE | 2024-10-25 16:03 | P.PN ---
Subjective Progress Note Date: 10/25/24 CHIEF COMPLAINT: Intractable nausea and vomiting HISTORY OF PRESENT ILLNESS: The patient is a 74-year-old male being seen for intractable nausea and vomiting. Family is at bedside. Family reports that he cannot even tolerate sips of water. Multiple biopsies have been done including of the stomach and liver biopsy. All of which are pending. He is on TPN. He denies any abdominal pain. ROS: No fevers or chills. No new chest pain. No productive sputum PHYSICAL EXAM: VITAL SIGNS: Reviewed CONSTITUTIONAL: Well developed and in no acute distress. EYES: Conjuctivae without sclera icterus. Extraocular movements grossly intact. HEAD, EARS, NOSE, THROAT: Moist buccal mucosa. Head is atraumatic, normocephalic. Hears conversational speech. No nasal drainage. RESPIRATORY: Non-labored respirations and equal bilateral excursions. CARDIOVASCULAR: Palpable 2+ radial pulses. ABDOMEN: Nontender. MUSCULOSKELETAL: No gross deformity of the lower extremities noted. No clubbing. No cyanosis. SKIN: Good skin turgor. Well perfused. NEUROLOGIC: Cranial nerves II through XII grossly intact. No focal or lateralizing signs. PSYCH: Appropriate affect. Alert and oriented to person, place and time. CLINICAL LABS: Reviewed. LFTs elevated. Sodium low 130, hyponatremia. Troponins negative. WBC normal. STUDIES: CT of the abdomen pelvis independent review demonstrates multiple multinodular lesions highly suspicious for metastatic disease ASSESSMENT: 1. Intractable nausea and vomiting 2. Abnormal CT scan with multiple metastatic disease 3. Metastatic disease of unknown primary 4. Inadequate protein intake with moderate to severe protein malnutrition PLAN: 1. Patient had liver biopsy including EGD with biopsies which are pending at this time. Overall clinical picture highly suspicious of metastatic malignancy of unknown primary 2. For moderate to severe protein malnutrition, TPN in interim. Objective - Vital Signs Vital signs: Vital Signs Temp 98.1 F 10/25/24 13:00 Pulse 84 10/25/24 13:00 Resp 16 10/25/24 13:00 BP 168/84 10/25/24 13:00 Pulse Ox 95 10/25/24 13:00 FiO2 Intake & Output 10/24/24 10/25/24 10/25/24 18:59 06:59 18:59 Intake Total 120 600 Balance 120 600 Weight 72.575 kg Intake: Oral 120 600 Other: Voiding Method Toilet Urinal # Voids 2 4 - Labs CBC & Chem 7: 10/20/24 12:43 10/25/24 03:05 Labs: Abnormal Lab Results - Last 24 Hours (Table) 10/25/24 Range/Units 03:05 Sodium 130 L (137-145) mmol/L Potassium 3.4 L (3.5-5.1) mmol/L Chloride 96 L (98-107) mmol/L BUN 7 L (9-20) mg/dL Glucose 118 H (74-99) mg/dL Calcium 8.2 L (8.4-10.2) mg/dL
[2024-10-25 16:07] LABS: Influenza A Not Detected (Not Detectd); Influenza B Not Detected (Not Detectd); RSV Not Detected (Not Detectd)
[2024-10-25 16:21] LABS: INR 1.1 (<1.2); Partial Thromboplastin Time 25.4 sec (22.0-30.0); Prothrombin Time 11.6 sec (10.0-12.5)
[2024-10-25] MEDS: WARFARIN 5 MG TAB PO ONE (17:36)
--- NOTE | 2024-10-26 02:11 | P.PN ---
Subjective Progress Note Date: 10/25/24 This is a pleasant 74-year-old male who presented to the emergency department with intense abdominal pain along with nausea and vomiting being closely monitored. Patient reports he follows with Dr. Damion Candelario' WINSTON Kelly at the [facility] in [place] with a past medical history of chronic A-fib, nicotine dependence, alcoholic cirrhosis, right pulmonary nodule, daily alcohol use and obesity. Patient denies any other illicit drug use and reports has not had a drink in over a week and a half as he has not been feeling well. Per family patient has not been eating the greatest and has been having excessive nausea and vomiting. Patient also was noted to have multiple episodes of diarrhea which has since resolved. Patient was admitted after undergoing CT abdomen which shows innumerable hypodense lesions throughout the liver most consistent with metastasis from an unknown primary malignancy, additionally there is surface nodularity of the liver which could be due to hepatic cirrhosis versus pseudocirrhosis from the lesions, and an enlarged right lower lobe 1.1 cm nodule concerning for metastasis as well as circumferential wall thickening of the gastric antrum which could represent malignancy versus gastritis along with scattered colonic diverticula without evidence of acute diverticulitis. Labs reveal a normal white count of 10.4, hemoglobin 14.4, platelets 249, sodium 132, potassium 4.0, BUN 14 and creatinine 1.23. Total bili is 1.6 with an AST of 149 and ALT is 46 urinalysis was negative, and influenza, RSV, COVID were all negative as well. Patient was started on gentle hydration along with supportive care and pain management with a consult to GI as well as oncology and interventional radiology for possible biopsy. 10/22/2024 Patient is seen in follow-up today with oncology and GI following. Patient unable to tolerate the GoLytely bowel prep and will be undergoing EGD for further evaluation. Patient is currently n.p.o. although requesting a diet and advance in diet as he feels hungry. Patient has had no further bowel movements, highly unlikely for C. difficile. Patient is also scheduled for biopsy with interventional radiology although patient had been taking Coumadin and will need to wait until Sunday to perform this. Patient is afebrile denies any further abdominal pain and denies any chest pain other than intermittently. Patient reports to feeling epigastric discomfort that resolves. 10/23/2024 Patient is seen in follow-up today with multiple consultations following. Patient is status post EGD maintained on clear liquids. Coumadin is on hold patient is scheduled to undergo biopsy of the liver with interventional radiology tomorrow. General surgery consulted in the event patient will need a J-tube placement for oral intake per recommendations of GI. Patient will be scheduled for PICC line and possible TPN initiation while awaiting biopsies reports. Patient is afebrile and denies any chest pain or shortness of breath. Patient reports to feeling improved with some pain although is currently managed on current regimen. Patient did have an episode of nausea but will continue supportive care. 10/24/2024 Patient is seen in follow-up today currently vomiting is daughter reports he does drink a whole glass of water. Patient to be n.p.o. except occasional sips with medicines and ice chips this patient is not tolerating much oral intake. TPN being initiated and patient does have a PICC line. Patient is status post biopsy of the liver which is pending and pathology from EGD remains pending as well. G-tube placement per general surgery is on hold while awaiting path results. Patient is afebrile reports some mild abdominal pain with no reports of chest pain or shortness of breath. Patient reports has been getting up and getting to the bathroom with no difficulties. 10/25/2024 Patient is seen in follow-up today with the inability to tolerate very much oral intake due to abdominal pain. Per nursing staff patient was reporting abdominal pain and upper right quadrant pain although family was reporting he was having chest pain and EKG was done showing atrial fibrillation and also other family members have been in and out of the room multiple times and were reported to have influenza. Cepheid including COVID, influenza, RSV are negative. Patient should just be occasional ice chips and sips of water with medicines otherwise n.p.o. and patient is continued on TPN. Continuing to await for biopsy results. Review of systems: Constitutional: No reports of fatigue, fever, or chills Cardiovascular: Per family there were reports of chest pain, denies palpitations Respiratory: No reports of shortness of breath or cough GI: reports of nausea, vomiting on occasion, no further diarrhea, continued upper abdominal pain : No reports of dysuria or retention Neurovascular: reports of generalized weakness All medications have been reviewed PHYSICAL EXAMINATION: GENERAL: The patient is alert and oriented x3, not in any acute distress. Well developed, elderly appearing HEENT: Pupils are round and equally reacting to light. EOMI. No scleral icterus. No conjunctival pallor. Normocephalic, atraumatic. No pharyngeal erythema. No thyromegaly. CARDIOVASCULAR: S1 and S2 muffled PULMONARY: Diminished breath sounds bilaterally otherwise chest is clear to auscultation, no wheezing or crackles. ABDOMEN: Soft, mildly tender, nondistended, normoactive bowel sounds. No palpable organomegaly. Liver biopsy site with bandage that is dry and intact MUSCULOSKELETAL: No joint swelling or deformity. EXTREMITIES: No cyanosis, clubbing, or pedal edema. NEUROLOGICAL: Gross neurological examination did not reveal any focal deficits. SKIN: No rashes. Assessment: Abdominal pain with nausea and vomiting likely secondary to a 4 cm ulcerated lesion noted on the antrum causing significant pyloric stenosis as found on EGD multiple hypodense lesions noted throughout the liver most consistent with metastasis Nausea/vomiting/diarrhea, acute gastritis, status post EGD revealing a 4 cm ulcerated lesion causing significant pyloric stenosis History of chronic A-fib, maintained on Coumadin, and has been resumed post liver biopsy, will continue heparin until therapeutic Hypertension Continued ongoing nicotine dependence Chronic daily alcohol use, has not had a drink in approximately 1.5 weeks Acute kidney injury, ATN, likely secondary to nausea, vomiting, diarrhea Diarrhea, ruled out C. difficile, no further episodes of diarrhea elevated LFTs and total bilirubin, likely secondary to chronic alcohol use Known right pulmonary nodule with no outpatient follow-up, noted again on CT History of hyperlipidemia GI prophylaxis DVT prophylaxis Full code Plan: Patient was at [facility] and discharged as he was having intractable nausea and vomiting with inability to hold down anything oral and was sent home on clear to full liquids instructed to follow-up with primary care provider. Per family at the bedside patient continued to be unable to tolerate oral intake and keep anything down have multiple episodes of nausea and vomiting with diarrhea came here for further evaluation. Patient is a poor historian and called the primary care providers office of which he sees nurse practitioner or PA for Alexander Mcguire and more of a history was obtained. Patient is on Coumadin and being resumed with pharmacy to dose. Will continue subcu heparin until INR is therapeutic GI following and unable to tolerate the colonoscopy prep although underwent EGD as mentioned previously. Multiple biopsies taken and pending at this time Patient is status post liver biopsy which is pending as well Patient has received a PICC line and is maintained on TPN. Continue n.p.o. as patient is not tolerating much oral intake other than a few sips and occasional ice chips General surgery following for possibility of G-tube placement given significant pyloric stenosis per recommendations of GI. Awaiting biopsy results to further discuss G-tube placement Encouraged increase activity as tolerated Will continue pain management and recommend avoiding narcotics if possible given patient's age. Family is also concerned of not being as alert as normal and will monitor closely for any hospital-acquired delirium. May use Seroquel as needed at night The impression and plan of care has been dictated by Emma Garcia, Nurse Practitioner as directed. Dr. Yazmin MD I have performed a history and examination and MDM of this patient, discussed the same with the dictator, and agree with the dictator's assessment and plan as written ,documented as a scribe. Based on total visit time, I have performed more than 50% of the visit. Objective - Vital Signs Vital signs: Vital Signs Temp 98.7 F 10/25/24 00:00 Pulse 74 10/25/24 00:00 Resp 12 10/25/24 00:00 BP 148/92 10/25/24 00:00 Pulse Ox 95 10/25/24 00:00 FiO2 Intake & Output 10/24/24 10/24/24 10/25/24 06:59 18:59 06:59 Intake Total 0 120 Balance 0 120 Weight 72.575 kg Intake: Oral 0 120 Other: # Voids 2 - Labs CBC & Chem 7: 10/20/24 12:43 10/25/24 03:05 Labs: Abnormal Lab Results - Last 24 Hours (Table) 10/25/24 Range/Units 03:05 Sodium 130 L (137-145) mmol/L Potassium 3.4 L (3.5-5.1) mmol/L Chloride 96 L (98-107) mmol/L BUN 7 L (9-20) mg/dL Glucose 118 H (74-99) mg/dL Calcium 8.2 L (8.4-10.2) mg/dL
[2024-10-26 05:50] LABS: Glucose,Whole Blood 131 mg/dL (70-110)
[2024-10-26 07:20] LABS: Glucose,Whole Blood 135 mg/dL (70-110)
[2024-10-26 07:33] LABS: African American GFR (CKD) >90 (>60 ml/min/1.73 sqM); Anion Gap 5 mmol/L; Blood Urea Nitrogen 14 mg/dL (9-20); Carbon Dioxide 27 mmol/L (22-30); Chloride 96 mmol/L (98-107); Glucose 140 mg/dL (74-99); Non-African American GFR(CKD) >90 (>60 ml/min/1.73 sqM); Phosphorus 3.8 mg/dL (2.5-4.5); Potassium 3.7 mmol/L (3.5-5.1); Sodium 128 mmol/L (137-145)
[2024-10-26 07:39] LABS: INR 1.1 (<1.2); Prothrombin Time 12.1 sec (10.0-12.5)
[2024-10-26] MEDS ORDERED: MORPHINE SULFATE 2 MG/ML SYRINGE IVP PRN (09:28)
[2024-10-26] MEDS: PANTOPRAZOLE 40 MG/10 ML VIAL IVP SCH (09:40)
[2024-10-26 12:15] LABS: Glucose,Whole Blood 151 mg/dL (70-110)
[2024-10-26] MEDS: 1: MVI, ADULT NO.4 WITH VIT K 10 ML, TRACE (CONC-1ML/DOSE) 1 ML, SODIUM CHLORIDE 4MEQ/ML IV SCH (14:54)
--- NOTE | 2024-10-26 15:43 | P.PN ---
Subjective Progress Note Date: 10/26/24 CHIEF COMPLAINT: Intractable nausea and vomiting HISTORY OF PRESENT ILLNESS: The patient is a 74-year-old male being seen for intractable nausea and vomiting. Multiple family members are at bedside. Steven garcía did have fever. Additionally he did have some abdominal pain. At this time is resting. ROS: Temperature over 100.0. No new chest pain. PHYSICAL EXAM: VITAL SIGNS: Reviewed CONSTITUTIONAL: Well developed and in no acute distress. EYES: Conjuctivae without sclera icterus. Extraocular movements grossly intact. HEAD, EARS, NOSE, THROAT: Moist buccal mucosa. Head is atraumatic, normoc ephalic. Hears conversational speech. No nasal drainage. RESPIRATORY: Non-labored respirations and equal bilateral excursions. CARDIOVASCULAR: Palpable 2+ radial pulses. ABDOMEN: No peritonitis. MUSCULOSKELETAL: No gross deformity of the lower extremities noted. No clubbing. No cyanosis. SKIN: Good skin turgor. Well perfused. NEUROLOGIC: Cranial nerves II through XII grossly intact. No focal or lateralizing signs. PSYCH: Appropriate affect. Alert and oriented to person CLINICAL LABS: Reviewed. Influenza, coronavirus negative. Sodium low 128. ASSESSMENT: 1. Intractable nausea and vomiting 2. Abnormal CT scan with multiple metastatic disease 3. Metastatic disease of unknown primary 4. Inadequate protein intake with moderate to severe protein malnutrition 5. Hyponatremia PLAN: 1. At this time, still pending liver biopsies due to multinodular liver masses. 2. Continue TPN Objective - Vital Signs Vital signs: Vital Signs Temp 100.1 F H 10/26/24 12:00 Pulse 85 10/26/24 12:00 Resp 16 10/26/24 12:00 BP 107/67 10/26/24 12:00 Pulse Ox 94 L 10/26/24 12:00 FiO2 Intake & Output 10/25/24 10/26/24 10/26/24 18:59 06:59 18:59 Intake Total 600 120 Balance 600 120 Intake: Intake, IV Titration 0 Amount Mvi, Adult No.4 with Vit 0 K 10 ml Trace (Conc-1Ml/ Dose) 1 ml In Amino Acid 5%-D20w+Lytes*E* 1,000 ml @ 85 mls/hr IV .BY DURATION MEKA Rx#: [id number] Oral 600 120 Other: Voiding Method Toilet Toilet Urinal Urinal # Voids 4 - Labs CBC & Chem 7: 10/20/24 12:43 10/26/24 07:05 Labs: Abnormal Lab Results - Last 24 Hours (Table) 10/26/24 10/26/24 10/26/24 Range/Units 05:48 07:05 07:13 Sodium 128 L (137-145) mmol/L Chloride 96 L (98-107) mmol/L Glucose 140 H (74-99) mg/dL POC Glucose (mg/dL) 131 H 135 H (70-110) mg/dL Calcium 8.0 L (8.4-10.2) mg/dL 10/26/24 Range/Units 12:08 Sodium (137-145) mmol/L Chloride (98-107) mmol/L Glucose (74-99) mg/dL POC Glucose (mg/dL) 151 H (70-110) mg/dL Calcium (8.4-10.2) mg/dL
--- NOTE | 2024-10-26 16:54 | P.PN ---
Subjective Progress Note Date: 10/26/24 This is a pleasant 74-year-old male who presented to the emergency department with intense abdominal pain along with nausea and vomiting being closely monitored. Patient reports he follows with Dr. Damion Candelario' WINSTON Kelly at the [facility] in [place] with a past medical history of chronic A-fib, nicotine dependence, alcoholic cirrhosis, right pulmonary nodule, daily alcohol use and obesity. Patient denies any other illicit drug use and reports has not had a drink in over a week and a half as he has not been feeling well. Per family patient has not been eating the greatest and has been having excessive nausea and vomiting. Patient also was noted to have multiple episodes of diarrhea which has since resolved. Patient was admitted after undergoing CT abdomen which shows innumerable hypodense lesions throughout the liver most consistent with metastasis from an unknown primary malignancy, additionally there is surface nodularity of the liver which could be due to hepatic cirrhosis versus pseudocirrhosis from the lesions, and an enlarged right lower lobe 1.1 cm nodule concerning for metastasis as well as circumferential wall thickening of the gastric antrum which could represent malignancy versus gastritis along with scattered colonic diverticula without evidence of acute diverticulitis. Labs reveal a normal white count of 10.4, hemoglobin 14.4, platelets 249, sodium 132, potassium 4.0, BUN 14 and creatinine 1.23. Total bili is 1.6 with an AST of 149 and ALT is 46 urinalysis was negative, and influenza, RSV, COVID were all negative as well. Patient was started on gentle hydration along with supportive care and pain management with a consult to GI as well as oncology and interventional radiology for possible biopsy. 10/22/2024 Patient is seen in follow-up today with oncology and GI following. Patient unable to tolerate the GoLytely bowel prep and will be undergoing EGD for further evaluation. Patient is currently n.p.o. although requesting a diet and advance in diet as he feels hungry. Patient has had no further bowel movements, highly unlikely for C. difficile. Patient is also scheduled for biopsy with interventional radiology although patient had been taking Coumadin and will need to wait until Sunday to perform this. Patient is afebrile denies any further abdominal pain and denies any chest pain other than intermittently. Patient reports to feeling epigastric discomfort that resolves. 10/23/2024 Patient is seen in follow-up today with multiple consultations following. Patient is status post EGD maintained on clear liquids. Coumadin is on hold patient is scheduled to undergo biopsy of the liver with interventional radiology tomorrow. General surgery consulted in the event patient will need a J-tube placement for oral intake per recommendations of GI. Patient will be scheduled for PICC line and possible TPN initiation while awaiting biopsies reports. Patient is afebrile and denies any chest pain or shortness of breath. Patient reports to feeling improved with some pain although is currently managed on current regimen. Patient did have an episode of nausea but will continue supportive care. 10/24/2024 Patient is seen in follow-up today currently vomiting is daughter reports he does drink a whole glass of water. Patient to be n.p.o. except occasional sips with medicines and ice chips this patient is not tolerating much oral intake. TPN being initiated and patient does have a PICC line. Patient is status post biopsy of the liver which is pending and pathology from EGD remains pending as well. G-tube placement per general surgery is on hold while awaiting path results. Patient is afebrile reports some mild abdominal pain with no reports of chest pain or shortness of breath. Patient reports has been getting up and getting to the bathroom with no difficulties. 10/25/2024 Patient is seen in follow-up today with the inability to tolerate very much oral intake due to abdominal pain. Per nursing staff patient was reporting abdominal pain and upper right quadrant pain although family was reporting he was having chest pain and EKG was done showing atrial fibrillation and also other family members have been in and out of the room multiple times and were reported to have influenza. Cepheid including COVID, influenza, RSV are negative. Patient should just be occasional ice chips and sips of water with medicines otherwise n.p.o. and patient is continued on TPN. Continuing to await for biopsy results. 10/26/2024 Patient is seen in follow-up today currently maintained on TPN continuing to await biopsy results. Patient is status post liver biopsy as well as multiple biopsies that were taking on EGD. Patient seen in follow-up today with multiple family members at bedside. Patient reports feeling okay currently not eating or drinking much. Patient is having few sips with medications. Patient did note to having increased abdominal pain but denies any vomiting, continues with intermittent nausea. Patient denies any further bowel movement and is continued on TPN. General surgery following with no plans of immediate intervention and awaiting pathology reports from biopsies to determine treatment plan moving forward. Unsure if patient will be receiving G-tube. Patient did have a low- grade temp today. Per patient family, they may have noticed some blood in the urine. Hemoglobin is stable and will monitor closely. Likely secondary to resuming Coumadin and maintained on heparin. Until INR is therapeutic Review of systems: Constitutional: No reports of fatigue, reports of low-grade fever, or chills Cardiovascular: Per family there were reports of chest pain and denies any further episodes, denies palpitations Respiratory: No reports of shortness of breath or cough GI: reports of intermittent nausea, vomiting on occasion although has not in 1 day, no further diarrhea, has not had a bowel movement since prior to admission, continued upper abdominal pain : No reports of dysuria or retention Neurovascular: reports of generalized weakness All medications have been reviewed PHYSICAL EXAMINATION: GENERAL: The patient is alert and oriented x3, not in any acute distress. Well developed, elderly appearing HEENT: Pupils are round and equally reacting to light. EOMI. No scleral icterus. No conjunctival pallor. Normocephalic, atraumatic. No pharyngeal erythema. No thyromegaly. CARDIOVASCULAR: S1 and S2 muffled PULMONARY: Diminished breath sounds bilaterally otherwise chest is clear to auscultation, no wheezing or crackles. ABDOMEN: Soft, mildly tender, nondistended, normoactive bowel sounds. No palpable organomegaly. Liver biopsy site with bandage that is dry and intact MUSCULOSKELETAL: No joint swelling or deformity. EXTREMITIES: No cyanosis, clubbing, or pedal edema. NEUROLOGICAL: Gross neurological examination did not reveal any focal deficits. SKIN: No rashes. Assessment: Abdominal pain with nausea and vomiting likely secondary to a 4 cm ulcerated lesion noted on the antrum causing significant pyloric stenosis as found on EGD multiple hypodense lesions noted throughout the liver most consistent with metastasis Nausea/vomiting/diarrhea, acute gastritis, status post EGD revealing a 4 cm ulcerated lesion causing significant pyloric stenosis History of chronic A-fib, maintained on Coumadin, and has been resumed post liver biopsy, will continue heparin until therapeutic Hypertension Continued ongoing nicotine dependence Chronic daily alcohol use, has not had a drink in approximately 1.5 weeks Acute kidney injury, ATN, likely secondary to nausea, vomiting, diarrhea Diarrhea, ruled out C. difficile, no further episodes of diarrhea elevated LFTs and total bilirubin, likely secondary to chronic alcohol use Known right pulmonary nodule with no outpatient follow-up, noted again on CT History of hyperlipidemia GI prophylaxis DVT prophylaxis Full code Plan: Patient was at [facility] and discharged as he was having intractable tone sea and vomiting with inability to hold down anything oral and was sent home on clear to full liquids instructed to follow-up with primary care provider. Per family at the bedside patient continued to be unable to tolerate oral intake and keep anything down have multiple episodes of nausea and vomiting with diarrhea came here for further evaluation. Patient is a poor historian and called the primary care providers office of which he sees nurse practitioner or PA for Alexander Mcguire and more of a history was obtained. Patient is on Coumadin and being resumed with pharmacy to dose. Will continue subcu heparin until INR is therapeutic, INR is 1.1. Patient daughter at the bedside reported they may have noticed some blood in the urine although unsure as it was already flushed. Instructed patient and family to use urinal and notify nursing to assess if there is hematuria. Most likely secondary to anticoagulation use. May need to hold heparin and Coumadin if worsening. GI following and unable to tolerate the colonoscopy prep although underwent EGD as mentioned previously. Multiple biopsies taken and pending at this time Patient is status post liver biopsy which is pending as well Patient has received a PICC line and is maintained on TPN. Continue n.p.o. as patient is not tolerating much oral intake other than a few sips and occasional ice chips General surgery following for possibility of G-tube placement given significant pyloric stenosis per recommendations of GI. Awaiting biopsy results to further discuss G-tube placement Family reported multiple family members visiting the patient and was noted to have influenza positive in the outpatient setting. Cepheid including COVID, RSV, influenza was tested on this patient and negative. Patient is now having fevers and will initiate cultures and repeat swabbing. Obtain urinalysis and chest x-ray. Encouraged increase activity as tolerated Will continue pain management and recommend avoiding narcotics if possible given patient's age. Family is also concerned of not being as alert as normal and will monitor closely for any hospital-acquired delirium. May use Seroquel as needed at night The impression and plan of care has been dictated by Emma Garcia, Nurse Practitioner as directed. Dr. Yazmin MD I have performed a history and examination and MDM of this patient, discussed the same with the dictator, and agree with the dictator's assessment and plan as written ,documented as a scribe. Based on total visit time, I have performed more than 50% of the visit. Objective - Vital Signs Vital signs: Vital Signs Temp 98.6 F 10/26/24 07:43 Pulse 91 10/26/24 07:43 Resp 16 10/26/24 07:43 BP 118/72 10/26/24 07:43 Pulse Ox 97 10/26/24 07:43 FiO2 Intake & Output 10/25/24 10/26/24 10/26/24 18:59 06:59 18:59 Intake Total 600 120 Balance 600 120 Intake: Intake, IV Titration 0 Amount Mvi, Adult No.4 with Vit 0 K 10 ml Trace (Conc-1Ml/ Dose) 1 ml In Amino Acid 5%-D20w+Lytes*E* 1,000 ml @ 85 mls/hr IV .BY DURATION [facility] Rx#: [id number] Oral 600 120 Other: Voiding Method Toilet Toilet Urinal Urinal # Voids 4 - Labs CBC & Chem 7: 10/20/24 12:43 10/26/24 07:05 Labs: Abnormal Lab Results - Last 24 Hours (Table) 10/26/24 10/26/24 10/26/24 Range/Units 05:48 07:05 07:13 Sodium 128 L (137-145) mmol/L Chloride 96 L (98-107) mmol/L Glucose 140 H (74-99) mg/dL POC Glucose (mg/dL) 131 H 135 H (70-110) mg/dL Calcium 8.0 L (8.4-10.2) mg/dL
[2024-10-26] MEDS: WARFARIN 5 MG TAB PO ONE (17:16)
[2024-10-26 17:25] LABS: Glucose,Whole Blood 135 mg/dL (70-110)
--- NOTE | 2024-10-26 17:45 | XR ---
EXAMINATION TYPE: XR chest 1V portable DATE OF EXAM: 10/26/2024 5:39 PM COMPARISON: Chest radiograph 2024. CLINICAL INDICATION: Male, 74 years old with history of shortness of breath; [facility] TECHNIQUE: XR chest 1V portable Frontal view of the chest. FINDINGS: Cardiomegaly. Bibasilar scarring/atelectasis. Cardiomegaly and possible trace right-sided pleural effusion. Neck fi ndings no sizable left-sided pleural effusion. Low lung volumes. Left-sided PICC line in stable positioning. No pneumothorax. No acute osseous abnormality. IMPRESSION: Stable radiographic appearance of the chest compared to prior study 10/24/2024. [facility], , 10/26/2024 5:43 PM
[2024-10-26] MEDS: ONDANSETRON 4 MG/2 ML VIAL IVP PRN (19:46)
[2024-10-26] MEDS: HYDROcodone/APAP 5-325MG 1 EACH TAB PO PRN (20:02)
[2024-10-26] MEDS: QUEtiapine 25 MG TAB PO SCH (20:02)
[2024-10-26 20:22] LABS: Glucose,Whole Blood 125 mg/dL (70-110)
[2024-10-27 05:34] LABS: Glucose,Whole Blood 166 mg/dL (70-110)
[2024-10-27 06:05] LABS: INR 1.1 (<1.2)
[2024-10-27 07:26] LABS: ALT 52 U/L (4-49); AST 194 U/L (17-59); African American GFR (CKD) >90 (>60 ml/min/1.73 sqM); Albumin 2.6 g/dL (3.5-5.0); Albumin/Globulin Ratio 0.8; Alkaline Phosphatase 131 U/L (38-126); Anion Gap 5 mmol/L; Blood Urea Nitrogen 20 mg/dL (9-20); Calcium 8.4 mg/dL (8.4-10.2); Carbon Dioxide 27 mmol/L (22-30); Chloride 95 mmol/L (98-107); Globulin 3.3 g/dL; Glucose 157 mg/dL (74-99); Magnesium 2.1 mg/dL (1.6-2.3); Non-African American GFR(CKD) 89 (>60 ml/min/1.73 sqM); Phosphorus 3.9 mg/dL (2.5-4.5); Potassium 3.4 mmol/L (3.5-5.1); Sodium 127 mmol/L (137-145); Total Protein 5.9 g/dL (6.3-8.2)
[2024-10-27 08:26] LABS: HCT 31.9 % (39.6-50.0); HGB 10.6 g/dL (13.0-17.0); MCH 29.8 pg (27.0-32.0); MCHC 33.2 g/dL (32.0-37.0); MCV 89.6 FL (80.0-97.0); Mean Platelet Volume 10.6 FL (9.5-12.2); NRBC Per 100 WBC 0 X 10*3/uL (0.00-0.01); Platelet Count 193 X 10*3/uL (140-440); RBC 3.56 X 10*6/uL (4.40-5.60); RDW 12.8 % (11.5-14.5); WBC 10.58 X 10*3/uL (4.50-10.00)
[2024-10-27 09:13] LABS: Basophils # (A) 0.03 X 10*3/uL (0.00-0.10); Basophils % (A) 0.3 %; Eosinophils # (A) 0.19 X 10*3/uL (0.04-0.35); Eosinophils % (A) 1.8 %; Lymphocytes # (A) 1.17 X 10*3/uL (0.90-5.00); Lymphocytes % (A) 11.1 %; Monocytes # (A) 1.77 X 10*3/uL (0.20-1.00); Monocytes % (A) 16.7 %; Neutrophils # (A) 7.37 X 10*3/uL (1.80-7.70); Neutrophils % (A) 69.6 %
[2024-10-27] MEDS: POTASSIUM CHLORIDE 20 MEQ in WATER FOR INJECTION 1 100ML.BAG IVPB SCH (09:30)
[2024-10-27 12:21] LABS: Glucose,Whole Blood 137 mg/dL (70-110)
--- NOTE | 2024-10-27 12:42 | P.PN ---
Subjective Progress Note Date: 10/27/24 SURGICAL PROGRESS NOTE CHIEF COMPLAINT: Nausea and vomiting HISTORY OF PRESENT ILLNESS: Patient is status post EGD with Dr. Mena that reported a 4 cm raised ulcerated lesion in the antrum of the stomach extending into the pylorus causing pyloric stenosis. Pyloric stenosis with gastric outlet obstruction and large amount of retained food in the stomach. 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 Liver biopsy results are pending. Patient continues to complain of abdominal pain. He did have episode of vomiting around 9:00 last night that was very dark. He did have a temp of 100.3 last night. WBC 10.8 Hgb 10.6 platelets 193 INR 1.1 sodium 127 potassium 3.4 creatinine 0.80 total bilirubin 2.0 AST 194 ALT 50 alk phos 131 Patient seen and examined with Dr. Cummins PHYSICAL EXAM: VITAL SIGNS: Reviewed. GENERAL: Well-developed in no acute distress. ABDOMEN: Soft. Nondistended. Tenderness palpation across upper abdomen NEUROLOGIC: Alert and oriented. Cranial nerves II through XII grossly intact. ASSESSMENT: 1. Pyloric stenosis with gastric outlet obstruction. EGD reports ulcerated lesion in the antrum of the stomach extending into the pylorus causing pyloric stenosis with gastric outlet obstruction. 2. Liver lesions PLAN: -Patient scheduled for Partial gastrectomy on with Dr. Cummins -Continue TPN for nutrition support -Keep Coumadin on hold for surgical intervention -Recommend to medically optimize patient for surgery on . Discussed case with medicine service. -Replace potassium for the hypokalemia Physician Administrative Associate note has been reviewed by physician. Signing provider agrees with the documented findings, assessment, and plan of care. Objective - Vital Signs Vital signs: Vital Signs Temp 98.2 F 10/27/24 12:17 Pulse 96 10/27/24 12:17 Resp 16 10/27/24 12:17 BP 136/75 10/27/24 12:17 Pulse Ox 94 L 10/27/24 12:17 FiO2 Intake & Output 10/26/24 10/27/24 10/27/24 18:59 06:59 18:59 Intake Total 1135 120 Balance 1135 120 Intake: Intake, IV Titration 1015 Amount Mvi, Adult No.4 with Vit 1015 K 10 ml Trace (Conc-1Ml/ Dose) 1 ml Sodium Chloride 4Meq/ml Vial 16 meq In Amino Acid 5%-D20w +Lytes*E* 1,000 ml @ 85 mls/hr IV .BY DURATION [facility] Rx#:[id number] Oral 120 120 Other: Voiding Method Toilet Urinal # Voids 3 2 - Labs CBC & Chem 7: 10/27/24 05:27 10/27/24 05:27 Labs: Abnormal Lab Results - Last 24 Hours (Table) 10/26/24 10/26/24 10/27/24 Range/Units 17:24 20:20 05:27 WBC (4.50-10.00) X 10*3/uL RBC (4.40-5.60) X 10*6/uL Hgb (13.0-17.0) g/dL Hct (39.6-50.0) % Immature Gran # (0.00-0.04) X 10*3/uL Monocytes # (0.20-1.00) X 10*3/uL Sodium 127 L (137-145) mmol/L Potassium 3.4 L (3.5-5.1) mmol/L Chloride 95 L (98-107) mmol/L Glucose 157 H (74-99) mg/dL POC Glucose (mg/dL) 135 H 125 H (70-110) mg/dL Total Bilirubin 2.0 H (0.2-1.3) mg/dL AST 194 H (17-59) U/L ALT 52 H (4-49) U/L Alkaline Phosphatase 131 H (38-126) U/L Total Protein 5.9 L (6.3-8.2) g/dL Albumin 2.6 L (3.5-5.0) g/dL 10/27/24 10/27/24 10/27/24 Range/Units 05:27 05:30 12:19 WBC 10.58 H (4.50-10.00) X 10*3/uL RBC 3.56 L (4.40-5.60) X 10*6/uL Hgb 10.6 L (13.0-17.0) g/dL Hct 31.9 L (39.6-50.0) % Immature Gran # 0.05 H (0.00-0.04) X 10*3/uL Monocytes # 1.77 H (0.20-1.00) X 10*3/uL Sodium (137-145) mmol/L Potassium (3.5-5.1) mmol/L Chloride (98-107) mmol/L Glucose (74-99) mg/dL POC Glucose (mg/dL) 166 H 137 H (70-110) mg/dL Total Bilirubin (0.2-1.3) mg/dL AST (17-59) U/L ALT (4-49) U/L Alkaline Phosphatase (38-126) U/L Total Protein (6.3-8.2) g/dL Albumin (3.5-5.0) g/dL
[2024-10-27 14:00] LABS: Appearance,Urine Clear (Clear); Bilirubin,Urine Negative (Negative); Blood,Urine Negative (Negative); Color,Urine Yellow; Glucose,Urine (UA) Trace (Negative); Ketones,Urine Negative (Negative); Leukocyte Esterase,Urine Negative (Negative); Nitrite,Urine Negative (Negative); PH, Urine 6.5 (5.0-8.0); Protein,Urine Trace (Negative); Specific Gravity,Urine 1.022 (1.001-1.035)
[2024-10-27] MEDS: 1: MVI, ADULT NO.4 WITH VIT K 10 ML, TRACE (CONC-1ML/DOSE) 1 ML, SODIUM CHLORIDE 4MEQ/ML IV SCH (14:38)
--- NOTE | 2024-10-27 16:20 | P.PN ---
Subjective Progress Note Date: 10/27/24 Reporting intermittent upper abd pain. No n/v today, tolerated little amt of water. Stomach biopsy positive for gastric adenocarcinoma. Continues TPN Objective - Vital Signs Vital signs: Vital Signs Temp 98.2 F 10/27/24 12:17 Pulse 96 10/27/24 12:17 Resp 16 10/27/24 12:17 BP 136/75 10/27/24 12:17 Pulse Ox 94 L 10/27/24 12:17 FiO2 Intake & Output 10/26/24 10/27/24 10/27/24 18:59 06:59 18:59 Intake Total 1135 360 Balance 1135 360 Intake: Intake, IV Titration 1015 Amount Mvi, Adult No.4 with Vit 1015 K 10 ml Trace (Conc-1Ml/ Dose) 1 ml Sodium Chloride 4Meq/ml Vial 16 meq In Amino Acid 5%-D20w +Lytes*E* 1,000 ml @ 85 mls/hr IV .BY DURATION [facility] Rx#:[id number] Oral 120 360 Other: Voiding Method Toilet Toilet Urinal Urinal # Voids 3 2 - Constitutional General appearance: Present: average body habitus, no acute distress - EENT Eyes: Present: EOMI ENT: Present: hearing grossly normal - Respiratory Details: breathing is even and unlabored - Cardiovascular Details: skin warm and dry - Gastrointestinal General gastrointestinal: Present: soft. Absent: tenderness - Integumentary Integumentary: Absent: cyanotic, jaundiced - Psychiatric Psychiatric: Present: A&O x's 3 - Labs CBC & Chem 7: 10/27/24 05:27 10/27/24 05:27 Labs: Abnormal Lab Results - Last 24 Hours (Table) 10/26/24 10/26/24 10/27/24 Range/Units 17:24 20:20 05:27 WBC (4.50-10.00) X 10*3/uL RBC (4.40-5.60) X 10*6/uL Hgb (13.0-17.0) g/dL Hct (39.6-50.0) % Immature Gran # (0.00-0.04) X 10*3/uL Monocytes # (0.20-1.00) X 10*3/uL Sodium 127 L (137-145) mmol/L Potassium 3.4 L (3.5-5.1) mmol/L Chloride 95 L (98-107) mmol/L Glucose 157 H (74-99) mg/dL POC Glucose (mg/dL) 135 H 125 H (70-110) mg/dL Total Bilirubin 2.0 H (0.2-1.3) mg/dL AST 194 H (17-59) U/L ALT 52 H (4-49) U/L Alkaline Phosphatase 131 H (38-126) U/L Total Protein 5.9 L (6.3-8.2) g/dL Albumin 2.6 L (3.5-5.0) g/dL 10/27/24 10/27/24 10/27/24 Range/Units 05:27 05:30 12:19 WBC 10.58 H (4.50-10.00) X 10*3/uL RBC 3.56 L (4.40-5.60) X 10*6/uL Hgb 10.6 L (13.0-17.0) g/dL Hct 31.9 L (39.6-50.0) % Immature Gran # 0.05 H (0.00-0.04) X 10*3/uL Monocytes # 1.77 H (0.20-1.00) X 10*3/uL Sodium (137-145) mmol/L Potassium (3.5-5.1) mmol/L Chloride (98-107) mmol/L Glucose (74-99) mg/dL POC Glucose (mg/dL) 166 H 137 H (70-110) mg/dL Total Bilirubin (0.2-1.3) mg/dL AST (17-59) U/L ALT (4-49) U/L Alkaline Phosphatase (38-126) U/L Total Protein (6.3-8.2) g/dL Albumin (3.5-5.0) g/dL Assessment and Plan (1) Abnormal CT scan Current Visit: Yes Status: Acute Priority: High Code(s): R93.89 - ABNORMAL FINDINGS ON DX IMAGING OF OTH BODY STRUCTURES SNOMED Code(s): 448216408 (2) Nausea and vomiting Current Visit: Yes Status: Acute Priority: Medium Code(s): R11.2 - NAUSEA WITH VOMITING, UNSPECIFIED SNOMED Code(s): 29269531 Plan: Nausea, vomiting, liver lesions: Patient presented to the emergency room for nausea vomiting and associated decreased oral intake over the last 1 week. He endorses approximate 30 pound weight loss over the last couple weeks, but family is unsure if this is accurate. Family reports patient is a heavy daily drinker, consuming up to a case of beer daily. Patient denies bowel changes, hematochezia and melena and hematemesis -Upon admit CT abdomen and pelvis with contrast showing innumerable hypodense lesions throughout the liver. Additionally there is surface nodularity of the liver which could be due to hepatic cirrhosis versus pseudocirrhosis from the noted lesions. Enlarged right lower lobe 1.1 cm pulmonary nodule. Circumferential wall thickening of the gastric antrum. Scattered colonic diverticuli without evidence of acute diverticulitis. -GI consulted. S/p EGD with 4 cm raised ulcerated lesion in the antrum of the stomach concerning in the pylorus causing pyloric stenosis with gastric outlet obstruction and large amount of retained food in the stomach. -General surgery has been consulted for evaluation for J-tube. Feeding tube on hold until path resulted. TPN has been started -S/p liver biopsy, path pending -Gastric ulcer pathology positive for invasive gastric adenocarcinoma -Case discussed with Dr. Britton, will evaluate to see if pt appropriate for palliative RT -Will plan for outpt PET CT. Clinic f/u in discharge plan Discussed findings/diagnosis and POC with pt and family. He was agreeable to the same. All questions and concerns were addressed
[2024-10-27 17:08] LABS: Glucose,Whole Blood 152 mg/dL (70-110)
[2024-10-27] MEDS ORDERED: WARFARIN 5 MG TAB PO ONE (18:00)
[2024-10-27 23:58] LABS: Glucose,Whole Blood 200 mg/dL (70-110)
--- NOTE | 2024-10-28 00:46 | P.PN ---
Subjective Progress Note Date: 10/27/24 This is a pleasant 74-year-old male who presented to the emergency department with intense abdominal pain along with nausea and vomiting being closely monitored. Patient reports he follows with Dr. Damion Candelario' WINSTON Kelly at the [facility] in [place] with a past medical history of chronic A-fib, nicotine dependence, alcoholic cirrhosis, right pulmonary nodule, daily alcohol use and obesity. Patient denies any other illicit drug use and reports has not had a drink in over a week and a half as he has not been feeling well. Per family patient has not been eating the greatest and has been having excessive nausea and vomiting. Patient also was noted to have multiple episodes of diarrhea which has since resolved. Patient was admitted after undergoing CT abdomen which shows innumerable hypodense lesions throughout the liver most consistent with metastasis from an unknown primary malignancy, additionally there is surface nodularity of the liver which could be due to hepatic cirrhosis versus pseudocirrhosis from the lesions, and an enlarged right lower lobe 1.1 cm nodule concerning for metastasis as well as circumferential wall thickening of the gastric antrum which could represent malignancy versus gastritis along with scattered colonic diverticula without evidence of acute diverticulitis. Labs reveal a normal white count of 10.4, hemoglobin 14.4, platelets 249, sodium 132, potassium 4.0, BUN 14 and creatinine 1.23. Total bili is 1.6 with an AST of 149 and ALT is 46 urinalysis was negative, and influenza, RSV, COVID were all negative as well. Patient was started on gentle hydration along with supportive care and pain management with a consult to GI as well as oncology and interventional radiology for possible biopsy. 10/22/2024 Patient is seen in follow-up today with oncology and GI following. Patient unable to tolerate the GoLytely bowel prep and will be undergoing EGD for further evaluation. Patient is currently n.p.o. although requesting a diet and advance in diet as he feels hungry. Patient has had no further bowel movements, highly unlikely for C. difficile. Patient is also scheduled for biopsy with interventional radiology although patient had been taking Coumadin and will need to wait until Sunday to perform this. Patient is afebrile denies any further abdominal pain and denies any chest pain other than intermittently. Patient reports to feeling epigastric discomfort that resolves. 10/23/2024 Patient is seen in follow-up today with multiple consultations following. Patient is status post EGD maintained on clear liquids. Coumadin is on hold patient is scheduled to undergo biopsy of the liver with interventional radiology tomorrow. General surgery consulted in the event patient will need a J-tube placement for oral intake per recommendations of GI. Patient will be scheduled for PICC line and possible TPN initiation while awaiting biopsies reports. Patient is afebrile and denies any chest pain or shortness of breath. Patient reports to feeling improved with some pain although is currently managed on current regimen. Patient did have an episode of nausea but will continue supportive care. 10/24/2024 Patient is seen in follow-up today currently vomiting is daughter reports he does drink a whole glass of water. Patient to be n.p.o. except occasional sips with medicines and ice chips this patient is not tolerating much oral intake. TPN being initiated and patient does have a PICC line. Patient is status post biopsy of the liver which is pending and pathology from EGD remains pending as well. G-tube placement per general surgery is on hold while awaiting path results. Patient is afebrile reports some mild abdominal pain with no reports of chest pain or shortness of breath. Patient reports has been getting up and getting to the bathroom with no difficulties. 10/25/2024 Patient is seen in follow-up today with the inability to tolerate very much oral intake due to abdominal pain. Per nursing staff patient was reporting abdominal pain and upper right quadrant pain although family was reporting he was having chest pain and EKG was done showing atrial fibrillation and also other family members have been in and out of the room multiple times and were reported to have influenza. Cepheid including COVID, influenza, RSV are negative. Patient should just be occasional ice chips and sips of water with medicines otherwise n.p.o. and patient is continued on TPN. Continuing to await for biopsy results. 10/26/2024 Patient is seen in follow-up today currently maintained on TPN continuing to await biopsy results. Patient is status post liver biopsy as well as multiple biopsies that were taking on EGD. Patient seen in follow-up today with multiple family members at bedside. Patient reports feeling okay currently not eating or drinking much. Patient is having few sips with medications. Patient did note to having increased abdominal pain but denies any vomiting, continues with intermittent nausea. Patient denies any further bowel movement and is continued on TPN. General surgery following with no plans of immediate intervention and awaiting pathology reports from biopsies to determine treatment plan moving forward. Unsure if patient will be receiving G-tube. Patient did have a low- grade temp today. Per patient family, they may have noticed some blood in the urine. Hemoglobin is stable and will monitor closely. Likely secondary to resuming Coumadin and maintained on heparin. Until INR is therapeutic 10/27/2024 Patient is seen in follow-up today and had a brief conversation with general surgery. Plan is for holding Coumadin and continuing with Lovenox and/or heparin for now and surgical intervention on , 10/30/2024. Gastric biopsy positive for gastric adenocarcinoma. Patient continues to be n.p.o. except for ice chips. Will continue subcutaneous heparin for now and will hold night before surgery tentatively scheduled for . Sodium 127 today and potassium 3.4. Patient continues on TPN and pharmacy with dietary to adjust formula. Review of systems: Constitutional: reports of fatigue, no further reports of low-grade fever, or chills Cardiovascular: Patient denies chest pain, denies palpitations Respiratory: No reports of shortness of breath or cough GI: reports of intermittent nausea, vomiting on occasion although has not in 1 day, no further diarrhea, has not had a bowel movement since prior to admission, continued upper abdominal pain : No reports of dysuria or retention Neurovascular: reports of generalized weakness All medications have been reviewed PHYSICAL EXAMINATION: GENERAL: The patient is alert and oriented x3, not in any acute distress. Well developed, elderly appearing HEENT: Pupils are round and equally reacting to light. EOMI. No scleral icterus. No conjunctival pallor. Normocephalic, atraumatic. No pharyngeal erythema. No thyromegaly. CARDIOVASCULAR: S1 and S2 muffled PULMONARY: Diminished breath sounds bilaterally otherwise chest is clear to auscultation, no wheezing or crackles. ABDOMEN: Soft, mildly tender, nondistended, normoactive bowel sounds. No palpable organomegaly. Liver biopsy site with bandage that is dry and intact MUSCULOSKELETAL: No joint swelling or deformity. EXTREMITIES: No cyanosis, clubbing, or pedal edema. NEUROLOGICAL: Gross neurological examination did not reveal any focal deficits. SKIN: No rashes. Assessment: Abdominal pain with nausea and vomiting likely secondary to a 4 cm ulcerated lesion noted on the antrum causing significant pyloric stenosis as found on EGD multiple hypodense lesions noted throughout the liver most consistent with metastasis Nausea/vomiting/diarrhea, acute gastritis, status post EGD revealing a 4 cm ulcerated lesion causing significant pyloric stenosis, gastric biopsy positive for stomach cancer and awaiting liver biopsy report. General surgery recommends to continue n.p.o. and discontinue Coumadin will continue subcutaneous heparin and tentatively plan for resection on , 10/31/2024. History of chronic A-fib, was on Coumadin, although will hold this patient is scheduled to undergo surgery on ., will continue heparin until therapeutic Hypertension Continued ongoing nicotine dependence Chronic daily alcohol use, has not had a drink in approximately 1.5 weeks Acute kidney injury, ATN, likely secondary to nausea, vomiting, diarrhea Diarrhea, ruled out C. difficile, no further episodes of diarrhea elevated LFTs and total bilirubin, likely secondary to chronic alcohol use Known right pulmonary nodule with no outpatient follow-up, noted again on CT History of hyperlipidemia GI prophylaxis DVT prophylaxis Full code Plan: Patient being followed by multiple consultations including oncology, general surgery, GI as patient is status post EGD with biopsies along with liver biopsy which is pending. Gastric biopsy positive for adenocarcinoma. Patient will follow-up in the outpatient setting with oncology and recommend PET testing outpatient. Patient is on Coumadin and will be held as patient is scheduled to undergo resection on , 10/31/2024. GI following and unable to tolerate the colonoscopy prep although underwent EGD as mentioned previously. Multiple biopsies taken and pending at this time Patient is status post liver biopsy which is pending as well Patient has received a PICC line and is maintained on TPN. Continue n.p.o. as patient is not tolerating much oral intake other than a few sips and occasional ice chips General surgery following for possibility of G-tube placement given significant pyloric stenosis per recommendations of GI. Family reported multiple family members visiting the patient and was noted to have influenza positive in the outpatient setting. Cepheid including COVID, RSV, influenza was tested on this patient and negative. Will initiate incentive spirometer and encouraged the patient to use as patient will be undergoing surgical intervention on . Encouraged increase activity as tolerated Will continue pain management and recommend avoiding narcotics if possible given patient's age. Family is also concerned of not being as alert as normal and wi ll monitor closely for any hospital-acquired delirium. May use Seroquel as needed at night The impression and plan of care has been dictated by Emma Garcia, Nurse Practitioner as directed. Dr. Yazmin MD I have performed a history and examination and MDM of this patient, discussed the same with the dictator, and agree with the dictator's assessment and plan as written ,documented as a scribe. Based on total visit time, I have performed more than 50% of the visit. Objective - Vital Signs Vital signs: Vital Signs Temp 98.2 F 10/27/24 07:34 Pulse 86 10/27/24 07:34 Resp 16 10/27/24 07:34 BP 113/68 10/27/24 07:34 Pulse Ox 94 L 10/27/24 07:34 FiO2 Intake & Output 10/26/24 10/27/24 10/27/24 18:59 06:59 18:59 Intake Total 1135 120 Balance 1135 120 Intake: Intake, IV Titration 1015 Amount Mvi, Adult No.4 with Vit 1015 K 10 ml Trace (Conc-1Ml/ Dose) 1 ml Sodium Chloride 4Meq/ml Vial 16 meq In Amino Acid 5%-D20w +Lytes*E* 1,000 ml @ 85 mls/hr IV .BY DURATION [facility] Rx#:[id number] Oral 120 120 Other: Voiding Method Toilet Urinal # Voids 3 2 - Labs CBC & Chem 7: 10/27/24 05:27 10/27/24 05:27 Labs: Abnormal Lab Results - Last 24 Hours (Table) 10/26/24 10/26/24 10/26/24 Range/Units 12:08 17:24 20:20 WBC (4.50-10.00) X 10*3/uL RBC (4.40-5.60) X 10*6/uL Hgb (13.0-17.0) g/dL Hct (39.6-50.0) % Immature Gran # (0.00-0.04) X 10*3/uL Monocytes # (0.20-1.00) X 10*3/uL Sodium (137-145) mmol/L Potassium (3.5-5.1) mmol/L Chloride (98-107) mmol/L Glucose (74-99) mg/dL POC Glucose (mg/dL) 151 H 135 H 125 H (70-110) mg/dL Total Bilirubin (0.2-1.3) mg/dL AST (17-59) U/L ALT (4-49) U/L Alkaline Phosphatase (38-126) U/L Total Protein (6.3-8.2) g/dL Albumin (3.5-5.0) g/dL 10/27/24 10/27/24 10/27/24 Range/Units 05:27 05:27 05:30 WBC 10.58 H (4.50-10.00) X 10*3/uL RBC 3.56 L (4.40-5.60) X 10*6/uL Hgb 10.6 L (13.0-17.0) g/dL Hct 31.9 L (39.6-50.0) % Immature Gran # 0.05 H (0.00-0.04) X 10*3/uL Monocytes # 1.77 H (0.20-1.00) X 10*3/uL Sodium 127 L (137-145) mmol/L Potassium 3.4 L (3.5-5.1) mmol/L Chloride 95 L (98-107) mmol/L Glucose 157 H (74-99) mg/dL POC Glucose (mg/dL) 166 H (70-110) mg/dL Total Bilirubin 2.0 H (0.2-1.3) mg/dL AST 194 H (17-59) U/L ALT 52 H (4-49) U/L Alkaline Phosphatase 131 H (38-126) U/L Total Protein 5.9 L (6.3-8.2) g/dL Albumin 2.6 L (3.5-5.0) g/dL
[2024-10-28 06:16] LABS: Glucose,Whole Blood 155 mg/dL (70-110)
[2024-10-28 07:07] LABS: INR 1.2 (<1.2); Prothrombin Time 12.6 sec (10.0-12.5)
[2024-10-28 07:29] LABS: African American GFR (CKD) >90 (>60 ml/min/1.73 sqM); Anion Gap 6 mmol/L; Blood Urea Nitrogen 20 mg/dL (9-20); Calcium 8.2 mg/dL (8.4-10.2); Carbon Dioxide 26 mmol/L (22-30); Chloride 97 mmol/L (98-107); Glucose 148 mg/dL (74-99); Magnesium 2.2 mg/dL (1.6-2.3); Non-African American GFR(CKD) 85 (>60 ml/min/1.73 sqM); Potassium 4.3 mmol/L (3.5-5.1); Sodium 129 mmol/L (137-145)
--- NOTE | 2024-10-28 08:45 | P.CONS ---
History of Present Illness - Reason for Consult Consult date: 10/28/24 gastric adenoca, pyloric obstruction Requesting physician: Delmer Elias - Chief Complaint nausea/vomiting - History of Present Illness The patient is a 74-year-old male with the history of a recently diagnosed likely metastatic adenocarcinoma of the stomach with a significant burden of metastatic disease to the liver. The patient has been started on TPN secondary to inability to eat. The patient presented to the emergency room on 10/20/2024. The patient and his family states she has been having difficulty for weeks. He has had difficulty eating and recently has had significant nausea and vomiting. A computed tomography scan of the abdomen and pelvis performed the same day revealed innumerable liver metastases, as well as circumferential gastric wall thickening with obstruction at the level of the pylorus. The patient underwent an upper endoscopy on October 22. This revealed a 4 cm ulcerated lesion arising from the gastric antrum causing stenosis at the pylorus. Biopsies were consistent with invasive gastric adenocarcinoma. The patient also had a liver biopsy performed, but the pathology has not resulted. At this time, the patient is unable to eat any solid foods without vomiting. He has subsequently been started on TPN. He has intermittent mid abdominal pain. He notes one recent bowel movement that had a dark/tarry appearance. He has been seen by medical oncology and surgery. He is able to ambulate to the bathroom. Review of Systems Constitutional: Reports anorexia, Reports weight loss Eyes: denies blurred vision Ears: deny: decreased hearing Ears, nose, mouth and throat: Denies headache, Denies sore throat Cardiovascular: Denies chest pain Respiratory: Denies cough Gastrointestinal: Reports as per HPI Genitourinary: Denies flank pain Integumentary: Denies rash Neurological: Denies aphasia, Denies ataxia Psychiatric: Denies anxiety Past Medical History Past Medical History: Atrial Fibrillation, Hyperlipidemia, Hypertension History of Any Multi-Drug Resistant Organisms: None Reported Past Surgical History: No Surgical Hx Reported Additional Past Surgical History / Comment(s): lung Past Anesthesia/Blood Transfusion Reactions: No Reported Reaction Past Psychological History: No Psychological Hx Reported Smoking Status: Current some day smoker Past Alcohol Use History: Occasional Additional Past Alcohol Use History / Comment(s): less than a pack per week. Past Drug Use History: None Reported Additional Drug Use History / Comment(s): weekly alcohol use, pt drinks around 10 drinks when he does drink. Medications and Allergies Home Medications Medication Instructions Recorded Confirmed Type Metoprolol Tartrate [Lopressor] 50 mg PO BID@0700,1500 10/20/24 10/20/24 History Warfarin [Coumadin] 2.5 mg PO DAILY@1500 10/20/24 10/20/24 History Allergies Allergy/AdvReac Type Severity Reaction Status Date / Time No Known Allergies Allergy Verified 10/20/24 15:40 Physical Exam Vitals: Vital Signs Temp Pulse Resp BP Pulse Ox 10/28/24 02:10 98.7 F 10/28/24 01:00 100.4 F H 97 16 110/71 92 L 10/27/24 20:51 98.5 F 104 H 16 133/84 96 10/27/24 16:41 98.5 F 97 16 134/79 93 L 10/27/24 12:17 98.2 F 96 16 136/75 94 L Intake and Output 10/27/24 10/28/24 10/28/24 22:59 06:59 14:59 Intake Total 120 1614 Output Total 300 Balance 120 1314 Intake: Intake, IV Titration 1024 Amount Mvi, Adult No.4 with Vit 1024 K 10 ml Trace (Conc-1Ml/ Dose) 1 ml Sodium Chloride 4Meq/ml Vial 32 meq Potassium Chloride 10 meq In Amino Acid 5%- D20w+Lytes*E* 1,000 ml @ 85 mls/hr IV .BY DURATION [facility] Rx#:[id number] Oral 120 590 Output: Urine 300 Other: Voiding Method Toilet Urinal # Voids 2 - Constitutional General appearance: no acute distress - EENT Eyes: scleral icterus ENT: hearing grossly normal - Neck Neck: no lymphadenopathy - Respiratory Respiratory: bilateral: CTA - Cardiovascular Rhythm: regular - Gastrointestinal General gastrointestinal: distended, hepatomegaly, tenderness - Integumentary Integumentary: no rash - Neurologic Neurologic: CNII-XII intact - Psychiatric Psychiatric: A&O x's 3, appropriate affect Results CBC & Chem 7: 10/27/24 05:27 10/28/24 06:30 Labs: Abnormal Lab Results - Last 24 Hours (Table) 10/27/24 10/27/24 10/27/24 Range/Units 05:27 12:19 13:15 Immature Gran # 0.05 H (0.00-0.04) X 10*3/uL Monocytes # 1.77 H (0.20-1.00) X 10*3/uL PT (10.0-12.5) sec INR (<1.2) Sodium (137-145) mmol/L Chloride (98-107) mmol/L Glucose (74-99) mg/dL POC Glucose (mg/dL) 137 H (70-110) mg/dL Calcium (8.4-10.2) mg/dL Urine Protein Trace H (Negative) Urine Glucose (UA) Trace H (Negative) 10/27/24 10/27/24 10/28/24 Range/Units 17:07 23:56 06:15 Immature Gran # (0.00-0.04) X 10*3/uL Monocytes # (0.20-1.00) X 10*3/uL PT (10.0-12.5) sec INR (<1.2) Sodium (137-145) mmol/L Chloride (98-107) mmol/L Glucose (74-99) mg/dL POC Glucose (mg/dL) 152 H 200 H 155 H (70-110) mg/dL Calcium (8.4-10.2) mg/dL Urine Protein (Negative) Urine Glucose (UA) (Negative) 10/28/24 10/28/24 Range/Units 06:30 06:30 Immature Gran # (0.00-0.04) X 10*3/uL Monocytes # (0.20-1.00) X 10*3/uL PT 12.6 H (10.0-12.5) sec INR 1.2 H (<1.2) Sodium 129 L (137-145) mmol/L Chloride 97 L (98-107) mmol/L Glucose 148 H (74-99) mg/dL POC Glucose (mg/dL) (70-110) mg/dL Calcium 8.2 L (8.4-10.2) mg/dL Urine Protein (Negative) Urine Glucose (UA) (Negative) Microbiology - Last 24 Hours (Table) 10/26/24 17:03 Blood Culture - Preliminary Blood Assessment and Plan Assessment: The patient is a 74-year-old male with the history of a recently diagnosed like ly metastatic adenocarcinoma of the stomach with a significant burden of metastatic disease to the liver (mild elevation in LFTs, bili = 2). The patient has been started on TPN secondary to inability to eat. Plan: 1. Gastric outlet obstruction (tumor related): As detailed above, the patient appears to have obstruction at the level of the pylorus. He is unable to eat and is now requiring TPN. I discussed with the patient and his daughter that we could consider a short course of palliative radiotherapy to this location. I explained that this may help to shrink the tumor and allow for the patient to eat. This may also help with his epigastric pain. However, I did explain to can sometimes take 1-2 weeks for the full effect of radiotherapy to be realized. If possible, a J-tube may be preferable for nutrition to bypass the obstruction. I am skeptical there would be much benefit for a distal gastrectomy considering the patient's significant burden of metastatic disease to the liver. 2. Metastatic gastric adenocarcinoma: Liver biopsy pending at this time, however clinical picture is consistent with a significant metastatic burden to the liver. I explained to the patient and his daughter that if the patient elected for treatment, he would certainly require systemic therapy. If the patient is not felt to be a good candidate for systemic therapy, certainly a palliative care consultation would also be reasonable. We will continue to follow along during his hospital stay. Time with Patient: Greater than 30
[2024-10-28 11:04] LABS: Influenza A Not Detected (Not Detectd); Influenza B Not Detected (Not Detectd); RSV Not Detected (Not Detectd)
--- NOTE | 2024-10-28 11:36 | P.PN ---
Subjective Progress Note Date: 10/28/24 SURGICAL PROGRESS NOTE CHIEF COMPLAINT: Nausea and vomiting HISTORY OF PRESENT ILLNESS: Patient is status post EGD with Dr. Mena that reported a 4 cm raised ulcerated lesion in the antrum of the stomach extending into the pylorus causing pyloric stenosis. Pyloric stenosis with gastric outlet obstruction and large amount of retained food in the stomach. 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 Liver biopsy results are pending. Per family patient did have another episode of vomiting yesterday. Oral intake is poor. Patient did have a low-grade temp of 100.4 last night. Mildly tachycardic. INR 1.2 sodium is 129 potassium better at 4.3 from 3.4 magnesium 2.2 PHYSICAL EXAM: VITAL SIGNS: Reviewed. GENERAL: Well-developed in no acute distress. ABDOMEN: Soft. Nondistended. Tenderness palpation across upper abdomen ASSESSMENT: 1. Invasive gastric adenocarcinoma noted on pathology from EGD. 2. Pyloric stenosis with gastric outlet obstruction due to gastric tumor 3. Liver lesion PLAN: -Discussed case with Dr Elias. He recommends J-tube placement for nutrition support that will bypass the gastric tumor and radiation treatment to help shrink the gastric tumor. Rad onc recommendations also noted. Discussed case with Dr. Cummins. Patient is scheduled for an open jejunostomy tube placement on . -Continue TPN for nutrition support -Keep Coumadin on hold for surgical intervention -Recommend to medically optimize patient for surgery on . Discussed case with medicine service. Physician Washer Off note has been reviewed by physician. Signing provider agrees with the documented findings, assessment, and plan of care. Please see additional documentation per MD CHIEF COMPLAINT: Intractable nausea and vomiting HISTORY OF PRESENT ILLNESS: The patient is a 74-year-old male being seen for intractable nausea and vomiting. Pathology has not returned as invasive gastric adenocarcinoma. He has difficulty with feeding. Open moderate emesis. Oral intake is low. Continues to have fevers. He has pre-existing atrial fibrillation. ROS: Has fevers. No chills. No shortness of breath. No acute chest pain. PHYSICAL EXAM: VITAL SIGNS: Reviewed CONSTITUTIONAL: Well developed and in no acute distress. EYES: Conjuctivae without sclera icterus. Extraocular movements grossly intact. HEAD, EARS, NOSE, THROAT: Moist buccal mucosa. Head is atraumatic, normocephalic. Hears conversational speech. No nasal drainage. RESPIRATORY: Non-labored respirations and equal bilateral excursions. CARDIOVASCULAR: Palpable 2+ radial pulses. ABDOMEN: No diffuse peritonitis. MUSCULOSKELETAL: No gross deformity of the lower extremities noted. No clubbing. No cyanosis. SKIN: Good skin turgor. Well perfused. NEUROLOGIC: Cranial nerves II through XII grossly intact. No focal or lateralizing signs. PSYCH: Appropriate affect. Alert and oriented to person CLINICAL LABS: Reviewed. Sodium low 129. ASSESSMENT: 1. Intractable nausea and vomiting 2. Abnormal CT scan with multiple metastatic disease 3. Metastatic disease adenocarcinoma of the stomach 4. Inadequate protein intake with moderate to severe protein malnutrition 5. Hyponatremia PLAN: 1. Recommend nutritional supplement with intravenous parenteral nutrition 2. Oncology team requesting enteral nutrition. Please hold blood thinner Coumadin in interim. 3. Patient is elevated risk for complications with concurrent hyponatremia Objective - Vital Signs Vital signs: Vital Signs Temp 98.1 F 10/28/24 07:35 Pulse 117 H 10/28/24 07:35 Resp 15 10/28/24 07:35 BP 115/69 10/28/24 07:35 Pulse Ox 93 L 10/28/24 07:35 FiO2 Intake & Output 10/27/24 10/28/24 10/28/24 18:59 06:59 18:59 Intake Total 720 1734 Output Total 300 Balance 720 1434 Weight 72.575 kg Intake: Intake, IV Titration 1024 Amount Mvi, Adult No.4 with Vit 1024 K 10 ml Trace (Conc-1Ml/ Dose) 1 ml Sodium Chloride 4Meq/ml Vial 32 meq Potassium Chloride 10 meq In Amino Acid 5%- D20w+Lytes*E* 1,000 ml @ 85 mls/hr IV .BY DURATION [facility] Rx#:[id number] Oral 720 710 Output: Urine 300 Other: Voiding Method Toilet Toilet Urinal Urinal # Voids 5 2 - Labs CBC & Chem 7: 11/02/24 11:18 11/02/24 07:17 Labs: Abnormal Lab Results - Last 24 Hours (Table) 10/27/24 10/27/24 10/27/24 Range/Units 12:19 13:15 17:07 PT (10.0-12.5) sec INR (<1.2) Sodium (137-145) mmol/L Chloride (98-107) mmol/L Glucose (74-99) mg/dL POC Glucose (mg/dL) 137 H 152 H (70-110) mg/dL Calcium (8.4-10.2) mg/dL Urine Protein Trace H (Negative) Urine Glucose (UA) Trace H (Negative) 10/27/24 10/28/24 10/28/24 Range/Units 23:56 06:15 06:30 PT 12.6 H (10.0-12.5) sec INR 1.2 H (<1.2) Sodium (137-145) mmol/L Chloride (98-107) mmol/L Glucose (74-99) mg/dL POC Glucose (mg/dL) 200 H 155 H (70-110) mg/dL Calcium (8.4-10.2) mg/dL Urine Protein (Negative) Urine Glucose (UA) (Negative) 10/28/24 Range/Units 06:30 PT (10.0-12.5) sec INR (<1.2) Sodium 129 L (137-145) mmol/L Chloride 97 L (98-107) mmol/L Glucose 148 H (74-99) mg/dL POC Glucose (mg/dL) (70-110) mg/dL Calcium 8.2 L (8.4-10.2) mg/dL Urine Protein (Negative) Urine Glucose (UA) (Negative) Microbiology - Last 24 Hours (Table) 10/26/24 17:03 Blood Culture - Preliminary Blood
[2024-10-28 12:21] LABS: Glucose,Whole Blood 153 mg/dL (70-110)
[2024-10-28 12:25] LABS: Basophils % (A) 0 %; Eosinophils # (A) 0.1 k/uL (0-0.7); Eosinophils % (A) 1 %; HCT 33.3 % (39.0-53.0); Hypochromasia Slight; Lymphocytes # (A) 1.3 k/uL (1.0-4.8); Lymphocytes % (A) 10 %; MCH 29.9 pg (25.0-35.0); MCHC 31.7 g/dL (31.0-37.0); MCV 94.3 fL (80.0-100.0); Mean Platelet Volume 9.9; Monocytes # (A) 1.9 k/uL (0-1.0); Monocytes % (A) 14 %; Neutrophils # (A) 9.5 k/uL (1.3-7.7); Neutrophils % (A) 73 %; Platelet Count 207 k/uL (150-450); RBC 3.53 m/uL (4.30-5.90); RDW 13.1 % (11.5-15.5); WBC 13.2 k/uL (3.8-10.6)
[2024-10-28 12:32] LABS: HGB 10.6 gm/dL (13.0-17.5)
[2024-10-28] MEDS: 1: MVI, ADULT NO.4 WITH VIT K 10 ML, TRACE (CONC-1ML/DOSE) 1 ML, SODIUM CHLORIDE 4MEQ/ML IV SCH (15:12)
[2024-10-28 17:14] LABS: Glucose,Whole Blood 161 mg/dL (70-110)
--- NOTE | 2024-10-28 18:13 | P.PN ---
Subjective Progress Note Date: 10/28/24 Reporting intermittent upper abd pain. No n/v today, tolerated little amt of water and oral medication. Continues TPN Objective - Vital Signs Vital signs: Vital Signs Temp 98.1 F 10/28/24 07:35 Pulse 117 H 10/28/24 07:35 Resp 15 10/28/24 07:35 BP 115/69 10/28/24 07:35 Pulse Ox 93 L 10/28/24 07:35 FiO2 Intake & Output 10/27/24 10/28/24 10/28/24 18:59 06:59 18:59 Intake Total 720 1734 Output Total 300 Balance 720 1434 Weight 72.575 kg Intake: Intake, IV Titration 1024 Amount Mvi, Adult No.4 with Vit 1024 K 10 ml Trace (Conc-1Ml/ Dose) 1 ml Sodium Chloride 4Meq/ml Vial 32 meq Potassium Chloride 10 meq In Amino Acid 5%- D20w+Lytes*E* 1,000 ml @ 85 mls/hr IV .BY DURATION [facility] Rx#:[id number] Oral 720 710 Output: Urine 300 Other: Voiding Method Toilet Toilet Urinal Urinal # Voids 5 2 - Constitutional General appearance: Present: average body habitus, no acute distress - EENT Eyes: Present: EOMI ENT: Present: hearing grossly normal - Respiratory Details: breathing is even and unlabored - Cardiovascular Details: skin warm and dry - Integumentary Integumentary: Absent: cyanotic, jaundiced - Psychiatric Psychiatric: Present: A&O x's 3 - Labs CBC & Chem 7: 10/28/24 06:15 10/28/24 06:30 Labs: Abnormal Lab Results - Last 24 Hours (Table) 10/27/24 10/27/24 10/27/24 Range/Units 12:19 13:15 17:07 PT (10.0-12.5) sec INR (<1.2) Sodium (137-145) mmol/L Chloride (98-107) mmol/L Glucose (74-99) mg/dL POC Glucose (mg/dL) 137 H 152 H (70-110) mg/dL Calcium (8.4-10.2) mg/dL Urine Protein Trace H (Negative) Urine Glucose (UA) Trace H (Negative) 10/27/24 10/28/24 10/28/24 Range/Units 23:56 06:15 06:30 PT 12.6 H (10.0-12.5) sec INR 1.2 H (<1.2) Sodium (137-145) mmol/L Chloride (98-107) mmol/L Glucose (74-99) mg/dL POC Glucose (mg/dL) 200 H 155 H (70-110) mg/dL Calcium (8.4-10.2) mg/dL Urine Protein (Negative) Urine Glucose (UA) (Negative) 10/28/24 Range/Units 06:30 PT (10.0-12.5) sec INR (<1.2) Sodium 129 L (137-145) mmol/L Chloride 97 L (98-107) mmol/L Glucose 148 H (74-99) mg/dL POC Glucose (mg/dL) (70-110) mg/dL Calcium 8.2 L (8.4-10.2) mg/dL Urine Protein (Negative) Urine Glucose (UA) (Negative) Microbiology - Last 24 Hours (Table) 10/26/24 17:03 Blood Culture - Preliminary Blood Assessment and Plan (1) Abnormal CT scan Current Visit: Yes Status: Acute Priority: High Code(s): R93.89 - ABNORMAL FINDINGS ON DX IMAGING OF OTH BODY STRUCTURES SNOMED Code(s): 451231919 (2) Nausea and vomiting Current Visit: Yes Status: Acute Priority: Medium Code(s): R11.2 - NAUSEA WITH VOMITING, UNSPECIFIED SNOMED Code(s): 43835183 Plan: Gastric adenocarcinoma: Patient presented to the emergency room for nausea vomiting and associated decreased oral intake over the last 1 week. He endorses approximate 30 pound weight loss over the last couple weeks, but family is unsure if this is accurate. Family reports patient is a heavy daily drinker, consuming up to a case of beer daily. Patient denies bowel changes, hematochezia and melena and hematemesis -Upon admit CT abdomen and pelvis with contrast showing innumerable hypodense lesions throughout the liver. Additionally there is surface nodularity of the liver which could be due to hepatic cirrhosis versus pseudocirrhosis from the noted lesions. Enlarged right lower lobe 1.1 cm pulmonary nodule. Circumferential wall thickening of the gastric antrum. Scattered colonic diverticuli without evidence of acute diverticulitis. -GI consulted. S/p EGD with 4 cm raised ulcerated lesion in the antrum of the stomach concerning in the pylorus causing pyloric stenosis with gastric outlet obstruction and large amount of retained food in the stomach. -General surgery has been consulted for evaluation for J-tube. TPN has been started, pending pathology -S/p liver biopsy, path pending -Gastric ulcer pathology positive for invasive gastric adenocarcinoma -Case discussed with Dr. Britton. Recommending palliative RT to gastric tumor causing gastric outlet obstruction -Case was discussed with surgery team today, we did not believe partial gastrectomy would be of much benefit due to heavy burden of malignancy within liver, but could further delay treatment. Plan to hold on surgery at this time, and plan for J-tube placement on -NGS-PDL1 requested on pathology. Will plan for outpt PET CT and guardant 360. Clinic f/u in discharge plan Discussed findings/diagnosis and POC with pt and family. He was agreeable to the same. All questions and concerns were addressed
[2024-10-28 23:56] LABS: Glucose,Whole Blood 151 mg/dL (70-110)
--- NOTE | 2024-10-29 04:51 | P.PN ---
Subjective Progress Note Date: 10/28/24 This is a pleasant 74-year-old male who presented to the emergency department with intense abdominal pain along with nausea and vomiting being closely monitored. Patient reports he follows with Dr. Damion Candelario' WINSTON Kelly at the [facility] in [place] with a past medical history of chronic A-fib, nicotine dependence, alcoholic cirrhosis, right pulmonary nodule, daily alcohol use and obesity. Patient denies any other illicit drug use and reports has not had a drink in over a week and a half as he has not been feeling well. Per family patient has not been eating the greatest and has been having excessive nausea and vomiting. Patient also was noted to have multiple episodes of diarrhea which has since resolved. Patient was admitted after undergoing CT abdomen which shows innumerable hypodense lesions throughout the liver most consistent with metastasis from an unknown primary malignancy, additionally there is surface nodularity of the liver which could be due to hepatic cirrhosis versus pseudocirrhosis from the lesions, and an enlarged right lower lobe 1.1 cm nodule concerning for metastasis as well as circumferential wall thickening of the gastric antrum which could represent malignancy versus gastritis along with scattered colonic diverticula without evidence of acute diverticulitis. Labs reveal a normal white count of 10.4, hemoglobin 14.4, platelets 249, sodium 132, potassium 4.0, BUN 14 and creatinine 1.23. Total bili is 1.6 with an AST of 149 and ALT is 46 urinalysis was negative, and influenza, RSV, COVID were all negative as well. Patient was started on gentle hydration along with supportive care and pain management with a consult to GI as well as oncology and interventional radiology for possible biopsy. 10/22/2024 Patient is seen in follow-up today with oncology and GI following. Patient unable to tolerate the GoLytely bowel prep and will be undergoing EGD for further evaluation. Patient is currently n.p.o. although requesting a diet and advance in diet as he feels hungry. Patient has had no further bowel movements, highly unlikely for C. difficile. Patient is also scheduled for biopsy with interventional radiology although patient had been taking Coumadin and will need to wait until Sunday to perform this. Patient is afebrile denies any further abdominal pain and denies any chest pain other than intermittently. Patient reports to feeling epigastric discomfort that resolves. 10/23/2024 Patient is seen in follow-up today with multiple consultations following. Patient is status post EGD maintained on clear liquids. Coumadin is on hold patient is scheduled to undergo biopsy of the liver with interventional radiology tomorrow. General surgery consulted in the event patient will need a J-tube placement for oral intake per recommendations of GI. Patient will be scheduled for PICC line and possible TPN initiation while awaiting biopsies reports. Patient is afebrile and denies any chest pain or shortness of breath. Patient reports to feeling improved with some pain although is currently managed on current regimen. Patient did have an episode of nausea but will continue supportive care. 10/24/2024 Patient is seen in follow-up today currently vomiting is daughter reports he does drink a whole glass of water. Patient to be n.p.o. except occasional sips with medicines and ice chips this patient is not tolerating much oral intake. TPN being initiated and patient does have a PICC line. Patient is status post biopsy of the liver which is pending and pathology from EGD remains pending as well. G-tube placement per general surgery is on hold while awaiting path results. Patient is afebrile reports some mild abdominal pain with no reports of chest pain or shortness of breath. Patient reports has been getting up and getting to the bathroom with no difficulties. 10/25/2024 Patient is seen in follow-up today with the inability to tolerate very much oral intake due to abdominal pain. Per nursing staff patient was reporting abdominal pain and upper right quadrant pain although family was reporting he was having chest pain and EKG was done showing atrial fibrillation and also other family members have been in and out of the room multiple times and were reported to have influenza. Cepheid including COVID, influenza, RSV are negative. Patient should just be occasional ice chips and sips of water with medicines otherwise n.p.o. and patient is continued on TPN. Continuing to await for biopsy results. 10/26/2024 Patient is seen in follow-up today currently maintained on TPN continuing to await biopsy results. Patient is status post liver biopsy as well as multiple biopsies that were taking on EGD. Patient seen in follow-up today with multiple family members at bedside. Patient reports feeling okay currently not eating or drinking much. Patient is having few sips with medications. Patient did note to having increased abdominal pain but denies any vomiting, continues with intermittent nausea. Patient denies any further bowel movement and is continued on TPN. General surgery following with no plans of immediate intervention and awaiting pathology reports from biopsies to determine treatment plan moving forward. Unsure if patient will be receiving G-tube. Patient did have a low- grade temp today. Per patient family, they may have noticed some blood in the urine. Hemoglobin is stable and will monitor closely. Likely secondary to resuming Coumadin and maintained on heparin. Until INR is therapeutic 10/27/2024 Patient is seen in follow-up today and had a brief conversation with general surgery. Plan is for holding Coumadin and continuing with Lovenox and/or heparin for now and surgical intervention on , 10/30/2024. Gastric biopsy positive for gastric adenocarcinoma. Patient continues to be n.p.o. except for ice chips. Will continue subcutaneous heparin for now and will hold night before surgery tentatively scheduled for . Sodium 127 today and potassium 3.4. Patient continues on TPN and pharmacy with dietary to adjust formula. 10/28/2024 Patient is seen and evaluated in follow-up today multiple consultations following and plan is for surgery on due to gastric adenocarcinoma. Per surgery, they will proceed with G-tube placement for nutrition and no plans for surgery as it is contraindicated. Radiation oncology following as well and discussed palliative treatment and patient and family are agreeable. Patient having occasional low-grade temps and multiple testings were negative for any acute infectious process including virology testing repeated which was negative. Patient continues to have some abdominal discomfort and reports no further bowel movements at this time. Review of systems: Constitutional: reports of fatigue, no further reports of low-grade fever, or chills Cardiovascular: Patient denies chest pain, denies palpitations Respiratory: No reports of shortness of breath or cough GI: reports of intermittent nausea, vomiting on occasion although has not in 1 day, no further diarrhea, has not had a bowel movement since prior to admission, continued upper abdominal pain : No reports of dysuria or retention Neurovascular: reports of generalized weakness All medications have been reviewed PHYSICAL EXAMINATION: GENERAL: The patient is alert and oriented x3, not in any acute distress. Well developed, elderly appearing HEENT: Pupils are round and equally reacting to light. EOMI. No scleral icterus. No conjunctival pallor. Normocephalic, atraumatic. No pharyngeal erythema. No thyromegaly. CARDIOVASCULAR: S1 and S2 muffled PULMONARY: Diminished breath sounds bilaterally otherwise chest is clear to auscultation, no wheezing or crackles. ABDOMEN: Soft, mildly tender, nondistended, normoactive bowel sounds. No palpable organomegaly. Liver biopsy site with bandage that is dry and intact MUSCULOSKELETAL: No joint swelling or deformity. EXTREMITIES: No cyanosis, clubbing, or pedal edema. NEUROLOGICAL: Gross neurological examination did not reveal any focal deficits. SKIN: No rashes. Assessment: Abdominal pain with nausea and vomiting likely secondary to a 4 cm ulcerated lesion noted on the antrum causing significant pyloric stenosis as found on EGD multiple hypodense lesions noted throughout the liver most consistent with metastasis Nausea/vomiting/diarrhea, acute gastritis, status post EGD revealing a 4 cm ulcerated lesion causing significant pyloric stenosis, gastric biopsy positive for invasive adenocarcinoma and awaiting liver biopsy report. General surgery recommends to continue n.p.o. and hold Coumadin will continue subcutaneous heparin and tentatively plan for open G-tube placement on , 10/31/2024. History of chronic A-fib, was on Coumadin, although will hold this patient is scheduled to undergo surgery on ., will continue heparin until therapeutic Hypertension Continued ongoing nicotine dependence Chronic daily alcohol use, has not had a drink in approximately 1.5 weeks Acute kidney injury, ATN, likely secondary to nausea, vomiting, diarrhea Diarrhea, ruled out C. difficile, no further episodes of diarrhea elevated LFTs and total bilirubin, likely secondary to chronic alcohol use Known right pulmonary nodule with no outpatient follow-up, noted again on CT History of hyperlipidemia GI prophylaxis DVT prophylaxis Full code Plan: Patient being followed by multiple consultations including oncology, general surgery, GI as patient is status post EGD with biopsies along with liver biopsy which is pending. Gastric biopsy positive for adenocarcinoma. Patient will follow-up in the outpatient setting with oncology and recommend PET testing outpatient. Patient is on Coumadin and will be held as patient is scheduled to undergo G-tube placement on , 10/31/2024. Resection is contraindicated per surgery Patient has received a PICC line and is maintained on TPN. Continue n.p.o. as patient is not tolerating much oral intake other than a few sips and occasional ice chips Continue to encourage incentive spirometer use at least 10 times every hour while awake Encouraged increase activity as tolerated Will continue pain management and recommend avoiding narcotics if possible given patient's age. Family is also concerned of not being as alert as normal and will monitor closely for any hospital-acquired delirium. May use Seroquel as needed at night The impression and plan of care has been dictated by Emma Garcia, Nurse Practitioner as directed. Dr. Yazmin MD I have performed a history and examination and MDM of this patient, discussed the same with the dictator, and agree with the dictator's assessment and plan as written ,documented as a scribe. Based on total visit time, I have performed more than 50% of the visit. Objective - Vital Signs Vital signs: Vital Signs Temp 98.1 F 10/28/24 07:35 Pulse 117 H 10/28/24 07:35 Resp 15 10/28/24 07:35 BP 115/69 10/28/24 07:35 Pulse Ox 93 L 10/28/24 07:35 FiO2 Intake & Output 10/27/24 10/28/24 10/28/24 18:59 06:59 18:59 Intake Total 720 1734 Output Total 300 Balance 720 1434 Weight 72.575 kg Intake: Intake, IV Titration 1024 Amount Mvi, Adult No.4 with Vit 1024 K 10 ml Trace (Conc-1Ml/ Dose) 1 ml Sodium Chloride 4Meq/ml Vial 32 meq Potassium Chloride 10 meq In Amino Acid 5%- D20w+Lytes*E* 1,000 ml @ 85 mls/hr IV .BY DURATION [facility] Rx#:[id number] Oral 720 710 Output: Urine 300 Other: Voiding Method Toilet Toilet Urinal Urinal # Voids 5 2 - Labs CBC & Chem 7: 10/28/24 06:15 10/28/24 06:30 Labs: Abnormal Lab Results - Last 24 Hours (Table) 10/27/24 10/27/24 10/27/24 Range/Units 12:19 13:15 17:07 PT (10.0-12.5) sec INR (<1.2) Sodium (137-145) mmol/L Chloride (98-107) mmol/L Glucose (74-99) mg/dL POC Glucose (mg/dL) 137 H 152 H (70-110) mg/dL Calcium (8.4-10.2) mg/dL Urine Protein Trace H (Negative) Urine Glucose (UA) Trace H (Negative) 10/27/24 10/28/24 10/28/24 Range/Units 23:56 06:15 06:30 PT 12.6 H (10.0-12.5) sec INR 1.2 H (<1.2) Sodium (137-145) mmol/L Chloride (98-107) mmol/L Glucose (74-99) mg/dL POC Glucose (mg/dL) 200 H 155 H (70-110) mg/dL Calcium (8.4-10.2) mg/dL Urine Protein (Negative) Urine Glucose (UA) (Negative) 10/28/24 Range/Units 06:30 PT (10.0-12.5) sec INR (<1.2) Sodium 129 L (137-145) mmol/L Chloride 97 L (98-107) mmol/L Glucose 148 H (74-99) mg/dL POC Glucose (mg/dL) (70-110) mg/dL Calcium 8.2 L (8.4-10.2) mg/dL Urine Protein (Negative) Urine Glucose (UA) (Negative) Microbiology - Last 24 Hours (Table) 10/26/24 17:03 Blood Culture - Preliminary Blood
[2024-10-29 05:44] LABS: Glucose,Whole Blood 118 mg/dL (70-110)
[2024-10-29 06:10] LABS: Basophils % (A) 0 %; Eosinophils # (A) 0.2 k/uL (0-0.7); Eosinophils % (A) 1 %; HCT 32.3 % (39.0-53.0); HGB 10.3 gm/dL (13.0-17.5); Hypochromasia Slight; Lymphocytes # (A) 1.2 k/uL (1.0-4.8); Lymphocytes % (A) 7 %; MCH 30.2 pg (25.0-35.0); MCV 94.4 fL (80.0-100.0); Mean Platelet Volume 9.1; Monocytes # (A) 2.2 k/uL (0-1.0); Monocytes % (A) 13 %; Neutrophils # (A) 12.8 k/uL (1.3-7.7); Neutrophils % (A) 75 %; Platelet Count 209 k/uL (150-450); RBC 3.43 m/uL (4.30-5.90); RDW 13.1 % (11.5-15.5); WBC 17.1 k/uL (3.8-10.6)
[2024-10-29 06:23] LABS: INR 1.1 (<1.2); Prothrombin Time 11.9 sec (10.0-12.5)
[2024-10-29 06:42] LABS: African American GFR (CKD) >90 (>60 ml/min/1.73 sqM); Anion Gap 8 mmol/L; Blood Urea Nitrogen 24 mg/dL (9-20); Calcium 8.5 mg/dL (8.4-10.2); Carbon Dioxide 24 mmol/L (22-30); Chloride 99 mmol/L (98-107); Glucose 121 mg/dL (74-99); Magnesium 2.3 mg/dL (1.6-2.3); Non-African American GFR(CKD) 86 (>60 ml/min/1.73 sqM); Potassium 4.3 mmol/L (3.5-5.1); Sodium 131 mmol/L (137-145)
--- NOTE | 2024-10-29 10:37 | P.PN ---
Subjective Progress Note Date: 10/29/24 SURGICAL PROGRESS NOTE CHIEF COMPLAINT: Nausea and vomiting HISTORY OF PRESENT ILLNESS: Patient is status post EGD with Dr. Mena that reported a 4 cm raised ulcerated lesion in the antrum of the stomach extending into the pylorus causing pyloric stenosis. Pyloric stenosis with gastric outlet obstruction and large amount of retained food in the stomach. 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 Liver biopsy results are pending. Patient reports feeling nauseated. No further vomiting. Currently afebrile. Mildly tachycardic. WBC is up from 13.2-17.1 hemoglobin 10.3 platelets 209 INR 1.1 creatinine 0.6 sodium is 131 influenza, RSV and COVID-19 not detected PHYSICAL EXAM: VITAL SIGNS: Reviewed. GENERAL: Well-developed in no acute distress. ABDOMEN: Soft. Nondistended. Tenderness palpation across upper abdomen ASSESSMENT: 1. Invasive gastric adenocarcinoma noted on pathology from EGD. 2. Pyloric stenosis with gastric outlet obstruction due to gastric tumor 3. Liver lesion 4. Severe protein calorie malnutrition PLAN: -Patient scheduled for open jejunostomy tube placement tomorrow with Dr. Cummins -Continue to medically optimize patient for surgery tomorrow -Continue TPN for nutrition support -Keep Coumadin on hold for surgical intervention Physician Hand Sprayer note has been reviewed by physician. Signing provider agrees with the documented findings, assessment, and plan of care. Please see additional documentation per MD CHIEF COMPLAINT: Intractable nausea and vomiting HISTORY OF PRESENT ILLNESS: The patient is a 74-year-old male being seen for intractable nausea and vomiting due to metastatic adenocarcinoma to stomach. He continues to have fevers. He continues to have tachycardia. No acute chest pain. He has hyponatremia for the last several days. ROS: Has fevers. No chills. No shortness of breath. No acute chest pain. PHYSICAL EXAM: VITAL SIGNS: Reviewed CONSTITUTIONAL: Well developed and in no acute distress. EYES: Conjuctivae without sclera icterus. Extraocular movements grossly intact. HEAD, EARS, NOSE, THROAT: Moist buccal mucosa. Head is atraumatic, normocephali c. Hears conversational speech. No nasal drainage. RESPIRATORY: Non-labored respirations and equal bilateral excursions. CARDIOVASCULAR: Palpable 2+ radial pulses. ABDOMEN: No diffuse peritonitis. MUSCULOSKELETAL: No gross deformity of the lower extremities noted. No clubbing. No cyanosis. SKIN: Good skin turgor. Well perfused. NEUROLOGIC: Cranial nerves II through XII grossly intact. No focal or lateralizing signs. PSYCH: Appropriate affect. Alert and oriented to person CLINICAL LABS: Reviewed. Sodium elevated 129-130+ ASSESSMENT: 1. Intractable nausea and vomiting 2. Abnormal CT scan with multiple metastatic disease 3. Metastatic disease adenocarcinoma of the stomach 4. Inadequate protein intake with moderate to severe protein malnutrition 5. Hyponatremia 6. Atrial fibrillation PLAN: 1. Continue to correct hyponatremia with goal sodium over 130. 2. Hold Coumadin due to increased risk of bleeding for open enteral tube placement 3. Patient is elevated risk due to metastatic disease Objective - Vital Signs Vital signs: Vital Signs Temp 98.8 F 10/29/24 07:37 Pulse 111 H 10/29/24 07:37 Resp 18 10/29/24 08:00 BP 116/75 10/29/24 07:37 Pulse Ox 93 L 10/29/24 07:37 FiO2 Intake & Output 10/28/24 10/29/24 10/29/24 18:59 06:59 18:59 Intake Total 360 937.833 Balance 360 937.833 Intake: Intake, IV Titration 937.833 Amount Mvi, Adult No.4 with Vit 937.833 K 10 ml Trace (Conc-1Ml/ Dose) 1 ml Sodium Chloride 4Meq/ml Vial 48 meq Potassium Chloride 10 meq In Amino Acid 5%- D20w+Lytes*E* 1,000 ml @ 85 mls/hr IV .BY DURATION [facility] Rx#:[id number] Oral 360 Other: Voiding Method Toilet Toilet Toilet Urinal Urinal Urinal # Voids 5 2 - Labs CBC & Chem 7: 11/02/24 11:18 11/02/24 07:17 Labs: Abnormal Lab Results - Last 24 Hours (Table) 10/28/24 10/28/24 10/28/24 Range/Units 06:15 12:19 17:13 WBC 13.2 H (3.8-10.6) k/uL RBC 3.53 L (4.30-5.90) m/uL Hgb 10.6 L D (13.0-17.5) gm/dL Hct 33.3 L (39.0-53.0) % Neutrophils # 9.5 H (1.3-7.7) k/uL Monocytes # 1.9 H (0-1.0) k/uL Sodium (137-145) mmol/L BUN (9-20) mg/dL Glucose (74-99) mg/dL POC Glucose (mg/dL) 153 H 161 H (70-110) mg/dL 10/28/24 10/29/24 10/29/24 Range/Units 23:54 05:36 05:36 WBC 17.1 H (3.8-10.6) k/uL RBC 3.43 L (4.30-5.90) m/uL Hgb 10.3 L (13.0-17.5) gm/dL Hct 32.3 L (39.0-53.0) % Neutrophils # 12.8 H (1.3-7.7) k/uL Monocytes # 2.2 H (0-1.0) k/uL Sodium 131 L (137-145) mmol/L BUN 24 H (9-20) mg/dL Glucose 121 H (74-99) mg/dL POC Glucose (mg/dL) 151 H (70-110) mg/dL 10/29/24 Range/Units 05:42 WBC (3.8-10.6) k/uL RBC (4.30-5.90) m/uL Hgb (13.0-17.5) gm/dL Hct (39.0-53.0) % Neutrophils # (1.3-7.7) k/uL Monocytes # (0-1.0) k/uL Sodium (137-145) mmol/L BUN (9-20) mg/dL Glucose (74-99) mg/dL POC Glucose (mg/dL) 118 H (70-110) mg/dL Microbiology - Last 24 Hours (Table) 10/26/24 17:03 Blood Culture - Preliminary Blood
[2024-10-29 12:02] LABS: Glucose,Whole Blood 162 mg/dL (70-110)
[2024-10-29] MEDS: HYDROcodone/APAP 15 ML SOLUTION PO PRN (13:08)
[2024-10-29 17:55] LABS: Glucose,Whole Blood 139 mg/dL (70-110)
--- NOTE | 2024-10-29 19:37 | P.PN ---
Subjective Progress Note Date: 10/29/24 Reporting intermittent upper abd pain. No n/v today, tolerated little amt of water and oral medication. Continues TPN. Plan for j tube placement tomorrow Objective - Vital Signs Vital signs: Vital Signs Temp 98.8 F 10/29/24 07:37 Pulse 111 H 10/29/24 07:37 Resp 18 10/29/24 08:00 BP 116/75 10/29/24 07:37 Pulse Ox 93 L 10/29/24 07:37 FiO2 Intake & Output 10/28/24 10/29/24 10/29/24 18:59 06:59 18:59 Intake Total 360 937.833 Balance 360 937.833 Intake: Intake, IV Titration 937.833 Amount Mvi, Adult No.4 with Vit 937.833 K 10 ml Trace (Conc-1Ml/ Dose) 1 ml Sodium Chloride 4Meq/ml Vial 48 meq Potassium Chloride 10 meq In Amino Acid 5%- D20w+Lytes*E* 1,000 ml @ 85 mls/hr IV .BY DURATION [facility] Rx#:[id number] Oral 360 Other: Voiding Method Toilet Toilet Toilet Urinal Urinal Urinal # Voids 5 2 - Constitutional General appearance: Present: average body habitus, no acute distress - EENT Eyes: Present: EOMI ENT: Present: hearing grossly normal - Respiratory Details: breathing is even and unlabored - Cardiovascular Details: skin warm and dry - Gastrointestinal General gastrointestinal: Present: distended, tenderness - Integumentary Integumentary: Present: jaundiced. Absent: cyanotic - Musculoskeletal Musculoskeletal: Present: generalized weakness - Psychiatric Psychiatric: Present: A&O x's 3 - Labs CBC & Chem 7: 10/29/24 05:36 10/29/24 05:36 Labs: Abnormal Lab Results - Last 24 Hours (Table) 10/28/24 10/28/24 10/28/24 Range/Units 06:15 12:19 17:13 WBC 13.2 H (3.8-10.6) k/uL RBC 3.53 L (4.30-5.90) m/uL Hgb 10.6 L D (13.0-17.5) gm/dL Hct 33.3 L (39.0-53.0) % Neutrophils # 9.5 H (1.3-7.7) k/uL Monocytes # 1.9 H (0-1.0) k/uL Sodium (137-145) mmol/L BUN (9-20) mg/dL Glucose (74-99) mg/dL POC Glucose (mg/dL) 153 H 161 H (70-110) mg/dL 10/28/24 10/29/24 10/29/24 Range/Units 23:54 05:36 05:36 WBC 17.1 H (3.8-10.6) k/uL RBC 3.43 L (4.30-5.90) m/uL Hgb 10.3 L (13.0-17.5) gm/dL Hct 32.3 L (39.0-53.0) % Neutrophils # 12.8 H (1.3-7.7) k/uL Monocytes # 2.2 H (0-1.0) k/uL Sodium 131 L (137-145) mmol/L BUN 24 H (9-20) mg/dL Glucose 121 H (74-99) mg/dL POC Glucose (mg/dL) 151 H (70-110) mg/dL 10/29/24 Range/Units 05:42 WBC (3.8-10.6) k/uL RBC (4.30-5.90) m/uL Hgb (13.0-17.5) gm/dL Hct (39.0-53.0) % Neutrophils # (1.3-7.7) k/uL Monocytes # (0-1.0) k/uL Sodium (137-145) mmol/L BUN (9-20) mg/dL Glucose (74-99) mg/dL POC Glucose (mg/dL) 118 H (70-110) mg/dL Microbiology - Last 24 Hours (Table) 10/26/24 17:03 Blood Culture - Preliminary Blood Assessment and Plan (1) Abnormal CT scan Current Visit: Yes Status: Acute Priority: High Code(s): R93.89 - ABNORMAL FINDINGS ON DX IMAGING OF OTH BODY STRUCTURES SNOMED Code(s): 133581950 (2) Nausea and vomiting Current Visit: Yes Status: Acute Priority: Medium Code(s): R11.2 - NAUSEA WITH VOMITING, UNSPECIFIED SNOMED Code(s): 15413579 Plan: Gastric adenocarcinoma: Patient presented to the emergency room for nausea vomiting and associated decreased oral intake over the last 1 week. He endorses approximate 30 pound weight loss over the last couple weeks, but family is unsure if this is accurate. Family reports patient is a heavy daily drinker, consuming up to a case of beer daily. Patient denies bowel changes, hematochezia and melena and hematemesis -Upon admit CT abdomen and pelvis with contrast showing innumerable hypodense lesions throughout the liver. Additionally there is surface nodularity of the liver which could be due to hepatic cirrhosis versus pseudocirrhosis from the noted lesions. Enlarged right lower lobe 1.1 cm pulmonary nodule. Circumferential wall thickening of the gastric antrum. Scattered colonic diverticuli without evidence of acute diverticulitis. -S/p EGD with 4 cm raised ulcerated lesion in the antrum of the stomach concerning in the pylorus causing pyloric stenosis with gastric outlet obstruction and large amount of retained food in the stomach. -General surgery has been consulted for evaluation for J-tube. TPN has been started, pending pathology -S/p liver biopsy, path pending -Gastric ulcer pathology positive for invasive gastric adenocarcinoma -Case discussed with Dr. Britton. Recommending palliative RT to gastric tumor causing gastric outlet obstruction -Case was discussed with surgery team. Plan to hold on gastrectomy at this time, and plan for J-tube placement tomorrow -[id number] requested on pathology. Will plan for outpt PET CT and guardant 360. Clinic f/u in discharge plan Discussed findings/diagnosis and POC with pt and family. He was agreeable to the same. All questions and concerns were addressed Dr attests: I have seen and examined pt, performed H&P, developed impression and plan of care. Discussed with dictator. Agree with documentation, dictated as a scribe.
[2024-10-30 01:57] LABS: Glucose,Whole Blood 178 mg/dL (70-110)
[2024-10-30 04:52] LABS: Basophils % (A) 0 %; Eosinophils # (A) 0.2 k/uL (0-0.7); Eosinophils % (A) 1 %; HCT 32.4 % (39.0-53.0); HGB 9.9 gm/dL (13.0-17.5); Hypochromasia Moderate; Lymphocytes # (A) 1.2 k/uL (1.0-4.8); Lymphocytes % (A) 9 %; MCH 29.5 pg (25.0-35.0); MCHC 30.4 g/dL (31.0-37.0); Mean Platelet Volume 8.5; Monocytes # (A) 1.4 k/uL (0-1.0); Monocytes % (A) 11 %; Neutrophils # (A) 9.4 k/uL (1.3-7.7); Neutrophils % (A) 75 %; Platelet Count 221 k/uL (150-450); RBC 3.34 m/uL (4.30-5.90); RDW 13.3 % (11.5-15.5); WBC 12.6 k/uL (3.8-10.6)
--- NOTE | 2024-10-30 05:02 | P.PN ---
Subjective Progress Note Date: 10/29/24 This is a pleasant 74-year-old male who presented to the emergency department with intense abdominal pain along with nausea and vomiting being closely monitored. Patient reports he follows with Dr. Damion Candelario' WINSTON Kelly at the [facility] in [place] with a past medical history of chronic A-fib, nicotine dependence, alcoholic cirrhosis, right pulmonary nodule, daily alcohol use and obesity. Patient denies any other illicit drug use and reports has not had a drink in over a week and a half as he has not been feeling well. Per family patient has not been eating the greatest and has been having excessive nausea and vomiting. Patient also was noted to have multiple episodes of diarrhea which has since resolved. Patient was admitted after undergoing CT abdomen which shows innumerable hypodense lesions throughout the liver most consistent with metastasis from an unknown primary malignancy, additionally there is surface nodularity of the liver which could be due to hepatic cirrhosis versus pseudocirrhosis from the lesions, and an enlarged right lower lobe 1.1 cm nodule concerning for metastasis as well as circumferential wall thickening of the gastric antrum which could represent malignancy versus gastritis along with scattered colonic diverticula without evidence of acute diverticulitis. Labs reveal a normal white count of 10.4, hemoglobin 14.4, platelets 249, sodium 132, potassium 4.0, BUN 14 and creatinine 1.23. Total bili is 1.6 with an AST of 149 and ALT is 46 urinalysis was negative, and influenza, RSV, COVID were all negative as well. Patient was started on gentle hydration along with supportive care and pain management with a consult to GI as well as oncology and interventional radiology for possible biopsy. 10/22/2024 Patient is seen in follow-up today with oncology and GI following. Patient unable to tolerate the GoLytely bowel prep and will be undergoing EGD for further evaluation. Patient is currently n.p.o. although requesting a diet and advance in diet as he feels hungry. Patient has had no further bowel movements, highly unlikely for C. difficile. Patient is also scheduled for biopsy with interventional radiology although patient had been taking Coumadin and will need to wait until Sunday to perform this. Patient is afebrile denies any further abdominal pain and denies any chest pain other than intermittently. Patient reports to feeling epigastric discomfort that resolves. 10/23/2024 Patient is seen in follow-up today with multiple consultations following. Patient is status post EGD maintained on clear liquids. Coumadin is on hold patient is scheduled to undergo biopsy of the liver with interventional radiology tomorrow. General surgery consulted in the event patient will need a J-tube placement for oral intake per recommendations of GI. Patient will be scheduled for PICC line and possible TPN initiation while awaiting biopsies reports. Patient is afebrile and denies any chest pain or shortness of breath. Patient reports to feeling improved with some pain although is currently managed on current regimen. Patient did have an episode of nausea but will continue supportive care. 10/24/2024 Patient is seen in follow-up today currently vomiting is daughter reports he does drink a whole glass of water. Patient to be n.p.o. except occasional sips with medicines and ice chips this patient is not tolerating much oral intake. TPN being initiated and patient does have a PICC line. Patient is status post biopsy of the liver which is pending and pathology from EGD remains pending as well. G-tube placement per general surgery is on hold while awaiting path results. Patient is afebrile reports some mild abdominal pain with no reports of chest pain or shortness of breath. Patient reports has been getting up and getting to the bathroom with no difficulties. 10/25/2024 Patient is seen in follow-up today with the inability to tolerate very much oral intake due to abdominal pain. Per nursing staff patient was reporting abdominal pain and upper right quadrant pain although family was reporting he was having chest pain and EKG was done showing atrial fibrillation and also other family members have been in and out of the room multiple times and were reported to have influenza. Cepheid including COVID, influenza, RSV are negative. Patient should just be occasional ice chips and sips of water with medicines otherwise n.p.o. and patient is continued on TPN. Continuing to await for biopsy results. 10/26/2024 Patient is seen in follow-up today currently maintained on TPN continuing to await biopsy results. Patient is status post liver biopsy as well as multiple biopsies that were taking on EGD. Patient seen in follow-up today with multiple family members at bedside. Patient reports feeling okay currently not eating or drinking much. Patient is having few sips with medications. Patient did note to having increased abdominal pain but denies any vomiting, continues with intermittent nausea. Patient denies any further bowel movement and is continued on TPN. General surgery following with no plans of immediate intervention and awaiting pathology reports from biopsies to determine treatment plan moving forward. Unsure if patient will be receiving G-tube. Patient did have a low- grade temp today. Per patient family, they may have noticed some blood in the urine. Hemoglobin is stable and will monitor closely. Likely secondary to resuming Coumadin and maintained on heparin. Until INR is therapeutic 10/27/2024 Patient is seen in follow-up today and had a brief conversation with general surgery. Plan is for holding Coumadin and continuing with Lovenox and/or heparin for now and surgical intervention on , 10/30/2024. Gastric biopsy positive for gastric adenocarcinoma. Patient continues to be n.p.o. except for ice chips. Will continue subcutaneous heparin for now and will hold night before surgery tentatively scheduled for . Sodium 127 today and potassium 3.4. Patient continues on TPN and pharmacy with dietary to adjust formula. 10/28/2024 Patient is seen and evaluated in follow-up today multiple consultations following and plan is for surgery on due to gastric adenocarcinoma. Per surgery, they will proceed with G-tube placement for nutrition and no plans for surgery as it is contraindicated. Radiation oncology following as well and discussed palliative treatment and patient and family are agreeable. Patient having occasional low-grade temps and multiple testings were negative for any acute infectious process including virology testing repeated which was negative. Patient continues to have some abdominal discomfort and reports no further bowel movements at this time. 10/29/2024 Patient is seen in follow-up today with multiple family members at the bedside. Patient is currently n.p.o. except occasional sips of water for medications and ice chips. Currently continued on TPN making adjustments and sodium slightly improved. White count is mildly elevated although trending down and will follow-up on repeat labs. Patient being followed by multiple consultations including oncology, radiation oncology and general surgery. Plan is for open jejunostomy tube placement with surgery on 10/30/2024. Radiation oncology plann ing on palliative radiation to help alleviate symptoms of the pyloric stenosis secondary to gastric tumor. Review of systems: Constitutional: reports of fatigue, no further reports of low-grade fever, or chills Cardiovascular: Patient denies chest pain, denies palpitations Respiratory: No reports of shortness of breath or cough GI: reports of intermittent nausea, no vomiting today, no further diarrhea, continued upper abdominal pain : No reports of dysuria or retention Neurovascular: reports of generalized weakness All medications have been reviewed PHYSICAL EXAMINATION: GENERAL: The patient is alert and oriented x3, not in any acute distress. Well developed, elderly appearing HEENT: Pupils are round and equally reacting to light. EOMI. No scleral icterus. No conjunctival pallor. Normocephalic, atraumatic. No pharyngeal erythema. No thyromegaly. CARDIOVASCULAR: S1 and S2 muffled PULMONARY: Diminished breath sounds bilaterally otherwise chest is clear to auscultation, no wheezing or crackles. ABDOMEN: Soft, mildly tender, nondistended, normoactive bowel sounds. No palp able organomegaly. MUSCULOSKELETAL: No joint swelling or deformity. EXTREMITIES: No cyanosis, clubbing, or pedal edema. NEUROLOGICAL: Gross neurological examination did not reveal any focal deficits. SKIN: No rashes. Assessment: Abdominal pain with nausea and vomiting likely secondary to invasive gastric adenocarcinoma 4 cm ulcerated lesion noted on the antrum causing significant pyloric stenosis with gastric outlet obstruction as found on EGD multiple hypodense lesions noted throughout the liver most consistent with metastasis, status post biopsy and pending results Nausea/vomiting/diarrhea, acute gastritis, status post EGD revealing a 4 cm ulcerated lesion causing significant pyloric stenosis, gastric biopsy positive for invasive History of chronic A-fib, was on Coumadin, although will hold this patient is scheduled to undergo surgery on ., will continue heparin Hypertension Continued ongoing nicotine dependence Chronic daily alcohol use, last drink approximately 1.5 weeks prior to hospitalization Acute kidney injury, ATN, likely secondary to nausea, vomiting, diarrhea, improved Diarrhea, ruled out C. difficile, no further episodes of diarrhea elevated LFTs and total bilirubin, likely secondary to chronic alcohol use Known right pulmonary nodule with no outpatient follow-up, noted again on CT History of hyperlipidemia Severe protein calorie malnutrition, currently maintained on TPN GI prophylaxis DVT prophylaxis Full code Plan: Patient being followed by multiple consultations including oncology, general surgery, GI as well as radiation oncology and patient is status post EGD with biopsies along with liver biopsy which remains pending. Gastric biopsy positive for adenocarcinoma. Patient will follow-up in the outpatient setting with oncology and recommend PET testing outpatient. Patient is on Coumadin and will be held as patient is scheduled to undergo j-tube placement on , 10/31/2024. Resection is contraindicated per surgery Patient has received a PICC line and is maintained on TPN. Continue n.p.o. as patient is not tolerating much oral intake other than a few sips and occasional ice chips Continue to encourage incentive spirometer use at least 10 times every hour while awake Encouraged increase activity as tolerated CODE STATUS was addressed with patient and family and wish to remain full code. Radiation oncology following as well and tentatively plan for palliative radiation of the gastric tumor and currently awaiting J-tube placement at this time. The impression and plan of care has been dictated by Emma Garcia, Nurse Practitioner as directed. Dr. Yazmin MD I have performed a history and examination and MDM of this patient, discussed the same with the dictator, and agree with the dictator's assessment and plan as written ,documented as a scribe. Based on total visit time, I have performed more than 50% of the visit. Objective - Vital Signs Vital signs: Vital Signs Temp 97.3 F L 10/30/24 01:09 Pulse 104 H 10/30/24 01:09 Resp 18 10/30/24 01:09 BP 143/93 10/30/24 01:09 Pulse Ox 95 10/30/24 01:09 FiO2 Intake & Output 10/29/24 10/29/24 10/30/24 06:59 18:59 06:59 Intake Total 937.833 268 Balance 937.833 268 Intake: Intake, IV Titration 937.833 28 Amount Mvi, Adult No.4 with Vit 937.833 28 K 10 ml Trace (Conc-1Ml/ Dose) 1 ml Sodium Chloride 4Meq/ml Vial 48 meq Potassium Chloride 10 meq In Amino Acid 5%- D20w+Lytes*E* 1,000 ml @ 85 mls/hr IV .BY DURATION [facility] Rx#:[id number] Oral 240 Other: Voiding Method Toilet Toilet Urinal Urinal Urinal # Voids 2 2 - Labs CBC & Chem 7: 10/30/24 04:14 10/29/24 05:36 Labs: Abnormal Lab Results - Last 24 Hours (Table) 10/29/24 10/29/24 10/29/24 Range/Units 05:36 05:36 05:42 WBC 17.1 H (3.8-10.6) k/uL RBC 3.43 L (4.30-5.90) m/uL Hgb 10.3 L (13.0-17.5) gm/dL Hct 32.3 L (39.0-53.0) % MCHC (31.0-37.0) g/dL Neutrophils # 12.8 H (1.3-7.7) k/uL Monocytes # 2.2 H (0-1.0) k/uL Sodium 131 L (137-145) mmol/L BUN 24 H (9-20) mg/dL Glucose 121 H (74-99) mg/dL POC Glucose (mg/dL) 118 H (70-110) mg/dL 10/29/24 10/29/24 10/30/24 Range/Units 12:01 17:54 01:55 WBC (3.8-10.6) k/uL RBC (4.30-5.90) m/uL Hgb (13.0-17.5) gm/dL Hct (39.0-53.0) % MCHC (31.0-37.0) g/dL Neutrophils # (1.3-7.7) k/uL Monocytes # (0-1.0) k/uL Sodium (137-145) mmol/L BUN (9-20) mg/dL Glucose (74-99) mg/dL POC Glucose (mg/dL) 162 H 139 H 178 H (70-110) mg/dL 10/30/24 Range/Units 04:14 WBC 12.6 H (3.8-10.6) k/uL RBC 3.34 L (4.30-5.90) m/uL Hgb 9.9 L (13.0-17.5) gm/dL Hct 32.4 L (39.0-53.0) % MCHC 30.4 L (31.0-37.0) g/dL Neutrophils # 9.4 H (1.3-7.7) k/uL Monocytes # 1.4 H (0-1.0) k/uL Sodium (137-145) mmol/L BUN (9-20) mg/dL Glucose (74-99) mg/dL POC Glucose (mg/dL) (70-110) mg/dL Microbiology - Last 24 Hours (Table) 10/26/24 17:03 Blood Culture - Preliminary Blood
[2024-10-30 05:07] LABS: INR 1.1 (<1.2); Prothrombin Time 12.1 sec (10.0-12.5)
[2024-10-30 05:11] LABS: ALT 75 U/L (4-49); AST 228 U/L (17-59); African American GFR (CKD) >90 (>60 ml/min/1.73 sqM); Albumin 2.4 g/dL (3.5-5.0); Albumin/Globulin Ratio 0.7; Alkaline Phosphatase 145 U/L (38-126); Anion Gap 5 mmol/L; Blood Urea Nitrogen 23 mg/dL (9-20); Calcium 8.2 mg/dL (8.4-10.2); Carbon Dioxide 25 mmol/L (22-30); Chloride 102 mmol/L (98-107); Globulin 3.3 g/dL; Glucose 155 mg/dL (74-99); Magnesium 2.3 mg/dL (1.6-2.3); Non-African American GFR(CKD) 87 (>60 ml/min/1.73 sqM); Phosphorus 4.3 mg/dL (2.5-4.5); Potassium 4.6 mmol/L (3.5-5.1); Sodium 132 mmol/L (137-145); Total Protein 5.7 g/dL (6.3-8.2)
[2024-10-30 06:00] LABS: Glucose,Whole Blood 143 mg/dL (70-110)
[2024-10-30] MEDS: IV FLUID CONTINUATION 1,000 ML IV ONE (09:02)
[2024-10-30] MEDS: DEXAMETHASONE SOD PHOSPHATE 4 MG/ML 1 ML VIAL IVP STA (09:38)
[2024-10-30] MEDS ORDERED: LIDOCAINE 1% INJ 10MG/ML (20 ML MDV) ONE (10:24)
[2024-10-30] MEDS ORDERED: PROPOFOL 10 MG/ML 20 ML VIAL IV ONE (10:24)
[2024-10-30] MEDS ORDERED: LIDOCAINE 4% LTA KIT (4 ML) TOPICAL ONE (10:24)
[2024-10-30] MEDS ORDERED: ROCURONIUM 10 MG/ML (5 ML VIAL) IV ONE (10:24)
[2024-10-30] MEDS ORDERED: fentaNYL (PF) 50 MCG/ML 2 ML AMP ONE (10:24)
[2024-10-30] MEDS ORDERED: SUCCINYLCHOLINE CHLORIDE 200 MG/10 ML VIAL IV ONE (10:24)
[2024-10-30] MEDS ORDERED: ESMOLOL 100 MG/10 ML VIAL ONE (10:24)
[2024-10-30] MEDS ORDERED: METOPROLOL TARTRATE 5 MG/5 ML VIAL IVP ONE (10:24)
[2024-10-30] MEDS: SODIUM CHLORIDE 0.9% 100 ML IV ONE (10:29)
[2024-10-30] MEDS: BUPIVACAINE (PF) 0.25% 30 ML VIAL SQ ONE (10:57)
--- NOTE | 2024-10-30 11:43 | P.OP ---
Date of Procedure: 10/30/24 Preoperative Diagnosis: Gastric cancer Malnutrition Postoperative Diagnosis: Gastric cancer Malnutrition Procedure(s) Performed: Open jejunostomy feeding tube Anesthesia: EFREM Surgeon: Von Cummins Estimated Blood Loss (ml): 5 Pathology: none sent Condition: stable Disposition: PACU Description of Procedure: The patient was placed on the operative table in the supine position. He received general endotracheal tube anesthesia. His abdomen was prepped and draped in you sterile fashion. A midline skin incision was made. Then using electrocautery the abdominal wall was divided. The small bowel was brought up and removed. The small bowel was then run proximally. And then a suitable spot in the jejunum was found for the feeding tube. The 18 Tamazight jejunostomy feeding tube was then brought through the abdominal wall on the left side. An enterotomy was made in the jejunum. The feeding tube was placed into the jejunum and passed distally. 3-0 GI silk sutures were used as a pursestring. 2 pursestring suture was applied on the jejunum. The jejunum was then tacked to the intra-abdominal wall using 3-0 GI silk suture in 4 quadrants. The balloon was inflated to 10 cc. No bleeding was seen. The fascia then closed looped #1 PDS suture. Skin was closed chasity. Patient tolerated well. He was sent to recovery room in stable condition.
[2024-10-30] MEDS: HYDROmorphone 0.5 MG/0.5 ML SYRINGE IVP SCH (12:17)
[2024-10-30] MEDS: DILTIAZEM 125 MG in SODIUM CHLORIDE 0.9% 100 ML IV SCH (12:47)
[2024-10-30] MEDS: DILTIAZEM DRIP BOLUS FROM BAG 1 MG SOLN IV ONE ×2 (12:48→16:42)
--- NOTE | 2024-10-30 14:59 | P.CRDCN ---
History of Present Illness Consult date: 10/30/24 Reason for Consult (text): Afib w rvr History of present illness: This is a 74-year-old male with history of gastric cancer. Patient went for J- tube placement and following the procedure, he developed A-fib with RVR. We were requested to see the patient in the recovery room. Patient started on Cardizem bolus followed by drip. Patient is seen in the coverage room in position on the stretcher. He appears quite weak. A-fib with RVR on telemetry and EKG. Review Of Systems: At the time of my exam: CONSTITUTIONAL: Denies fever or chills. + Generalized weakness HEENT: Denies blurred vision, vision changes, or eye pain. Denies hemoptysis CARDIOVASCULAR: Denies chest pain. Denies orthopnea. Denies PND. Denies palpitations RESPIRATORY: Denies shortness of breath. GASTROINTESTINAL: Denies abdominal pain. Denies nausea or vomiting. HEMATOLOGIC: Denies bleeding disorders. GENITOURINARY: Denies any blood in urine. SKIN: Denies puritis. Denies rash. Physical examination: Gen: This is an ill-appearing 74-year-old male in no acute respiratory distress. VS: reviewed HEENT: Head is atraumatic, normocephalic. Pupils equal, round. Sclerae is anicteric. LUNGS: Few crackles. No intercostal retractions. HEART: Regular rate and rhythm. Systolic murmur. ABDOMEN: Soft No tenderness. EXTREMITIES: No pedal edema. No calf tenderness. NEUROLOGICAL: Patient is awake, confused. Assessment: Atrial fibrillation with RVR Gastric cancer Pyloric stenosis with gastric outlet obstruction status post J-tube placement Metastatic liver disease Severe protein calorie malnutrition Plan: Continue patient on Cardizem drip until he can start pills via PEG tube Obtain 2-D echocardiogram and Doppler study to assess cardiac structure and function Further recommendations to follow based upon clinical course Thank you kindly for this consultation. Nurse practitioner note has been reviewed, I agree with documented findings and plan of care. Patient was seen and examined. Past Medical History Past Medical History: Atrial Fibrillation, Hyperlipidemia, Hypertension History of Any Multi-Drug Resistant Organisms: None Reported Past Surgical History: No Surgical Hx Reported Additional Past Surgical History / Comment(s): lung Past Anesthesia/Blood Transfusion Reactions: No Reported Reaction Past Psychological History: No Psychological Hx Reported Smoking Status: Current some day smoker Past Alcohol Use History: Occasional Additional Past Alcohol Use History / Comment(s): less than a pack per week. Past Drug Use History: None Reported Additional Drug Use History / Comment(s): weekly alcohol use, pt drinks around 10 drinks when he does drink. Medications and Allergies Home Medications Medication Instructions Recorded Confirmed Type Metoprolol Tartrate [Lopressor] 50 mg PO BID@0700,1500 10/20/24 10/20/24 History Warfarin [Coumadin] 2.5 mg PO DAILY@1500 10/20/24 10/20/24 History Allergies Allergy/AdvReac Type Severity Reaction Status Date / Time No Known Allergies Allergy Verified 10/20/24 15:40 Physical Exam Vitals: Vital Signs Temp Pulse Pulse Resp BP Pulse Ox 10/30/24 13:00 129 H 18 152/90 98 10/30/24 12:45 146 H 18 164/97 98 10/30/24 12:30 132 H 18 151/101 98 10/30/24 12:15 138 H 18 177/102 98 10/30/24 12:00 128 H 18 141/84 98 10/30/24 11:45 126 H 18 166/94 98 10/30/24 11:32 97.9 F 114 H 18 139/90 98 10/30/24 08:53 97.2 F L 97 17 144/75 97 10/30/24 08:00 18 10/30/24 07:01 98.5 F 102 H 112/69 94 L 10/30/24 01:09 97.3 F L 104 H 18 143/93 95 10/29/24 19:47 98.6 F 99 18 121/72 95 Intake and Output 10/29/24 10/30/24 10/30/24 22:59 06:59 14:59 Intake Total 268 700 Output Total 5 Balance 268 695 Intake: IV 700 Intake, IV Titration 28 Amount Mvi, Adult No.4 with Vit 28 K 10 ml Trace (Conc-1Ml/ Dose) 1 ml Sodium Chloride 4Meq/ml Vial 48 meq Potassium Chloride 10 meq In Amino Acid 5%- D20w+Lytes*E* 1,000 ml @ 85 mls/hr IV .BY DURATION MEKA Rx#:[id number] Oral 240 Output: Estimated Blood Loss 5 Other: Voiding Method Urinal Urinal # Voids 2 1 Weight 72.575 kg Results 11/02/24 11:18 11/02/24 07:17 Cardiac Enzymes 10/30/24 Range/Units 04:14 AST 228 H (17-59) U/L Coagulation 10/30/24 Range/Units 04:14 PT 12.1 (10.0-12.5) sec CBC 10/30/24 Range/Units 04:14 WBC 12.6 H (3.8-10.6) k/uL RBC 3.34 L (4.30-5.90) m/uL Hgb 9.9 L (13.0-17.5) gm/dL Hct 32.4 L (39.0-53.0) % Plt Count 221 (150-450) k/uL Comprehensive Metabolic Panel 10/30/24 Range/Units 04:14 Sodium 132 L (137-145) mmol/L Potassium 4.6 (3.5-5.1) mmol/L Chloride 102 (98-107) mmol/L Carbon Dioxide 25 (22-30) mmol/L BUN 23 H (9-20) mg/dL Creatinine 0.84 (0.66-1.25) mg/dL Glucose 155 H (74-99) mg/dL Calcium 8.2 L (8.4-10.2) mg/dL AST 228 H (17-59) U/L ALT 75 H (4-49) U/L Alkaline Phosphatase 145 H (38-126) U/L Total Protein 5.7 L (6.3-8.2) g/dL Albumin 2.4 L (3.5-5.0) g/dL Current Medications Generic Name Dose Route Start Last Admin Trade Name Freq PRN Reason Stop Dose Admin Acetaminophen 650 mg 10/20/24 15:00 Acetaminophen Tab 325 Mg Tab PO Q6HR PRN Mild Pain or Fever > 100.5 Hydrocodone Bitart/Acetaminophen 10 ml 10/28/24 13:29 10/29/24 13:08 Hydrocodone/Apap 15 Ml Solution PO 10 ml Q4H PRN Administration Moderate Pain (Scale 4 to 6) Heparin Sodium (Porcine) 5,000 unit 10/21/24 09:00 10/30/24 08:29 Heparin Sodium,Porcine 5,000 Unit/Ml 1 Ml Vial SQ Not Given Q12HR MEKA Hydromorphone HCl 1 mg 10/30/24 11:43 Hydromorphone 1 Mg/Ml 1 Ml Syringe IVP Q3HR PRN Severe pain or NPO Lactated Ringer's 1,000 mls @ 20 mls/hr 10/23/24 06:56 10/29/24 05:45 Lactated Ringers IV Not Given .Q24H MEKA Fat Emulsion Intravenous 250 250 mls @ 21 mls/hr 10/24/24 12:00 10/27/24 14:38 ml/ IV Solution IV 21 mls/hr Q72H MEKA Administration Parenteral Vitamin Supplement 1,028 mls @ 85 mls/hr 10/28/24 15:00 10/29/24 17:16 10 ml/ Zinc/Copper/Manganese/ IV 10/30/24 16:59 85 mls/hr Selenium 1 ml/ Sodium Chloride .BY DURATION MEKA Infusion 48 meq/ Potassium Chloride 10 meq/ Amino Ac/Electrol/ Dextrose/Calcium Sodium Chloride 48 meq/ 1,017 mls @ 85 mls/hr 10/28/24 15:00 10/30/24 04:58 Potassium Chloride 10 meq/ IV 10/30/24 16:59 85 mls/hr Amino Ac/Electrol/Dextrose/ .BY DURATION MEKA Administration Calcium Parenteral Vitamin Supplement 1,031 mls @ 85 mls/hr 10/30/24 17:00 10 ml/ Zinc/Copper/Manganese/ IV Selenium 1 ml/ Sodium Chloride .BY DURATION MEKA 60 meq/ Potassium Chloride 10 meq/ Amino Ac/Electrol/ Dextrose/Calcium Sodium Chloride 60 meq/ 1,020 mls @ 85 mls/hr 10/30/24 17:00 Potassium Chloride 10 meq/ IV Amino Ac/Electrol/Dextrose/ .BY DURATION MEKA Calcium Diltiazem HCl 125 mg/ Sodium 125 mls @ 5 mls/hr 10/30/24 12:30 10/30/24 12:47 Chloride IV 5 mg/hr .Q24H MEKA 5 mls/hr Administration 5 MG/HR Metoprolol Tartrate 50 mg 10/20/24 15:00 10/30/24 08:31 Metoprolol Tartrate 50 Mg Tab PO 50 mg BID@0700,1500 MEKA Administration Miscellaneous Information 1 each 10/25/24 06:07 Potassium Replacement Protocol 1 Each Misc MISCELLANE DAILY PRN Per Protocol Protocol Naloxone HCl 0.2 mg 10/20/24 15:00 Naloxone 0.4 Mg/Ml 1 Ml Vial IV Q2M PRN Opioid Reversal Ondansetron HCl 4 mg 10/26/24 10:24 10/30/24 09:15 Ondansetron 4 Mg/2 Ml Vial IVP 4 mg Q6H PRN Administration Nausea And Vomiting Pantoprazole Sodium 40 mg 10/26/24 09:00 10/30/24 08:32 Pantoprazole 40 Mg/10 Ml Vial IVP 40 mg BID MEKA Administration Quetiapine Fumarate 12.5 mg 10/26/24 21:00 10/29/24 21:18 Quetiapine 25 Mg Tab PO 12.5 mg HS MEKA Administration Intake and Output 10/29/24 10/30/24 10/30/24 22:59 06:59 14:59 Intake Total 268 700 Output Total 5 Balance 268 695 Intake: IV 700 Intake, IV Titration 28 Amount Mvi, Adult No.4 with Vit 28 K 10 ml Trace (Conc-1Ml/ Dose) 1 ml Sodium Chloride 4Meq/ml Vial 48 meq Potassium Chloride 10 meq In Amino Acid 5%- D20w+Lytes*E* 1,000 ml @ 85 mls/hr IV .BY DURATION MEKA Rx#:[id number] Oral 240 Output: Estimated Blood Loss 5 Other: Voiding Method Urinal Urinal # Voids 2 1 Weight 72.575 kg Patient Weight 10/31/24 06:59 Weight 72.575 kg 10/30/24 04:14 10/30/24 04:14
--- NOTE | 2024-10-30 15:18 | P.PN ---
Subjective Progress Note Date: 10/30/24 This is a pleasant 74-year-old male who presented to the emergency department with intense abdominal pain along with nausea and vomiting being closely monitored. Patient reports he follows with Dr. Damion Candelario' WINSTON Kelly at the [facility] in [place] with a past medical history of chronic A-fib, n icotine dependence, alcoholic cirrhosis, right pulmonary nodule, daily alcohol use and obesity. Patient denies any other illicit drug use and reports has not had a drink in over a week and a half as he has not been feeling well. Per family patient has not been eating the greatest and has been having excessive nausea and vomiting. Patient also was noted to have multiple episodes of diarrhea which has since resolved. Patient was admitted after undergoing CT abdomen which shows innumerable hypodense lesions throughout the liver most consistent with metastasis from an unknown primary malignancy, additionally there is surface nodularity of the liver which could be due to hepatic cirrhosis versus pseudocirrhosis from the lesions, and an enlarged right lower lobe 1.1 cm nodule concerning for metastasis as well as circumferential wall thickening of the gastric antrum which could represent malignancy versus gastritis along with scattered colonic diverticula without evidence of acute diverticulitis. Labs reveal a normal white count of 10.4, hemoglobin 14.4, platelets 249, sodium 132, potassium 4.0, BUN 14 and creatinine 1.23. Total bili is 1.6 with an AST of 149 and ALT is 46 urinalysis was negative, and influenza, RSV, COVID were all negative as well. Patient was started on gentle hydration along with supportive care and pain management with a consult to GI as well as oncology and interventional radiology for possible biopsy. 10/22/2024 Patient is seen in follow-up today with oncology and GI following. Patient unable to tolerate the GoLytely bowel prep and will be undergoing EGD for further evaluation. Patient is currently n.p.o. although requesting a diet and advance in diet as he feels hungry. Patient has had no further bowel movements, highly unlikely for C. difficile. Patient is also scheduled for biopsy with interventional radiology although patient had been taking Coumadin and will need to wait until Sunday to perform this. Patient is afebrile denies any further abdominal pain and denies any chest pain other than intermittently. Patient reports to feeling epigastric discomfort that resolves. 10/23/2024 Patient is seen in follow-up today with multiple consultations following. Patient is status post EGD maintained on clear liquids. Coumadin is on hold patient is scheduled to undergo biopsy of the liver with interventional radiology tomorrow. General surgery consulted in the event patient will need a J-tube placement for oral intake per recommendations of GI. Patient will be scheduled for PICC line and possible TPN initiation while awaiting biopsies reports. Patient is afebrile and denies any chest pain or shortness of breath. Patient reports to feeling improved with some pain although is currently managed on current regimen. Patient did have an episode of nausea but will continue supportive care. 10/24/2024 Patient is seen in follow-up today currently vomiting is daughter reports he does drink a whole glass of water. Patient to be n.p.o. except occasional sips with medicines and ice chips this patient is not tolerating much oral intake. TPN being initiated and patient does have a PICC line. Patient is status post biopsy of the liver which is pending and pathology from EGD remains pending as well. G-tube placement per general surgery is on hold while awaiting path results. Patient is afebrile reports some mild abdominal pain with no reports of chest pain or shortness of breath. Patient reports has been getting up and getting to the bathroom with no difficulties. 10/25/2024 Patient is seen in follow-up today with the inability to tolerate very much oral intake due to abdominal pain. Per nursing staff patient was reporting abdominal pain and upper right quadrant pain although family was reporting he was having chest pain and EKG was done showing atrial fibrillation and also other family members have been in and out of the room multiple times and were reported to have influenza. Cepheid including COVID, influenza, RSV are negative. Patient should just be occasional ice chips and sips of water with medicines otherwise n.p.o. and patient is continued on TPN. Continuing to await for biopsy results. 10/26/2024 Patient is seen in follow-up today currently maintained on TPN continuing to await biopsy results. Patient is status post liver biopsy as well as multiple biopsies that were taking on EGD. Patient seen in follow-up today with multiple family members at bedside. Patient reports feeling okay currently not eating or drinking much. Patient is having few sips with medications. Patient did note to having increased abdominal pain but denies any vomiting, continues with intermittent nausea. Patient denies any further bowel movement and is continued on TPN. General surgery following with no plans of immediate intervention and awaiting pathology reports from biopsies to determine treatment plan moving forward. Unsure if patient will be receiving G-tube. Patient did have a low- grade temp today. Per patient family, they may have noticed some blood in the urine. Hemoglobin is stable and will monitor closely. Likely secondary to resuming Coumadin and maintained on heparin. Until INR is therapeutic 10/27/2024 Patient is seen in follow-up today and had a brief conversation with general surgery. Plan is for holding Coumadin and continuing with Lovenox and/or heparin for now and surgical intervention on , 10/30/2024. Gastric biopsy positive for gastric adenocarcinoma. Patient continues to be n.p.o. except for ice chips. Will continue subcutaneous heparin for now and will hold night before surgery tentatively scheduled for . Sodium 127 today and potassium 3.4. Patient continues on TPN and pharmacy with dietary to adjust formula. 10/28/2024 Patient is seen and evaluated in follow-up today multiple consultations following and plan is for surgery on due to gastric adenocarcinoma. Per surgery, they will proceed with G-tube placement for nutrition and no plans for surgery as it is contraindicated. Radiation oncology following as well and discussed palliative treatment and patient and family are agreeable. Patient having occasional low-grade temps and multiple testings were negative for any acute infectious process including virology testing repeated which was negative. Patient continues to have some abdominal discomfort and reports no further bowel movements at this time. 10/29/2024 Patient is seen in follow-up today with multiple family members at the bedside. Patient is currently n.p.o. except occasional sips of water for medications and ice chips. Currently continued on TPN making adjustments and sodium slightly improved. White count is mildly elevated although trending down and will follow-up on repeat labs. Patient being followed by multiple consultations including oncology, radiation oncology and general surgery. Plan is for open jejunostomy tube placement with surgery on 10/30/2024. Radiation oncology planning on palliative radiation to help alleviate symptoms of the pyloric stenosis secondary to gastric tumor. 10/30/2024 Evaluated in follow-up currently n.p.o. for surgery and will be going for a J- tube placement early this morning. Work today reveals a white blood cell count of 12.6, hemoglobin 9.9, sodium level of 132, BUN of 23 creatinine of 0.84. His LFTs remain elevated with an AST of 228 ALT of 75 alk phos of 145. He is on room air with oxygen saturations of 97%. Recommendations to follow after surgery. Review of systems: Constitutional: reports of fatigue, no further reports of low-grade fever, or chills Cardiovascular: Patient denies chest pain, denies palpitations Respiratory: No reports of shortness of breath or cough GI: reports of intermittent nausea, no vomiting today, no further diarrhea, continued upper abdominal pain : No reports of dysuria or retention Neurovascular: reports of generalized weakness All medications have been reviewed PHYSICAL EXAMINATION: GENERAL: The patient is alert and oriented x3, not in any acute distress. Well developed, elderly appearing HEENT: Pupils are round and equally reacting to light. EOMI. No scleral icterus. No conjunctival pallor. Normocephalic, atraumatic. No pharyngeal erythema. No thyromegaly. CARDIOVASCULAR: S1 and S2 muffled PULMONARY: Diminished breath sounds bilaterally otherwise chest is clear to auscultation, no wheezing or crackles. ABDOMEN: Soft, mildly tender, nondistended, normoactive bowel sounds. No pa lpable organomegaly. MUSCULOSKELETAL: No joint swelling or deformity. EXTREMITIES: No cyanosis, clubbing, or pedal edema. NEUROLOGICAL: Gross neurological examination did not reveal any focal deficits. SKIN: No rashes. Assessment: Abdominal pain with nausea and vomiting likely secondary to invasive gastric adenocarcinoma 4 cm ulcerated lesion noted on the antrum causing significant pyloric stenosis with gastric outlet obstruction as found on EGD multiple hypodense lesions noted throughout the liver most consistent with metastasis, status post biopsy and pending results Nausea/vomiting/diarrhea, acute gastritis, status post EGD revealing a 4 cm ulcerated lesion causing significant pyloric stenosis, gastric biopsy positive for invasive History of chronic A-fib, was on Coumadin, although will hold this patient is scheduled to undergo surgery on ., will continue heparin Hypertension Continued ongoing nicotine dependence Chronic daily alcohol use, last drink approximately 1.5 weeks prior to hospitalization Acute kidney injury, ATN, likely secondary to nausea, vomiting, diarrhea, improved Diarrhea, ruled out C. difficile, no further episodes of diarrhea elevated LFTs and total bilirubin, likely secondary to chronic alcohol use Known right pulmonary nodule with no outpatient follow-up, noted again on CT History of hyperlipidemia Severe protein calorie malnutrition, currently maintained on TPN GI prophylaxis DVT prophylaxis Full code Plan: Patient being followed by multiple consultations including oncology, general surgery, GI as well as radiation oncology and patient is status post EGD with biopsies along with liver biopsy which remains pending. Gastric biopsy positive for adenocarcinoma. Patient will follow-up in the outpatient setting with oncology and recommend PET testing outpatient. Patient is on Coumadin and will be held as patient is scheduled to undergo j-tube placement Today, 10/31/2024. Resection is contraindicated per surgery Patient has received a PICC line and is maintained on TPN. Continue n.p.o. as patient is not tolerating much oral intake other than a few sips and occasional ice chips Continue to encourage incentive spirometer use at least 10 times every hour while awake Encouraged increase activity as tolerated CODE STATUS was addressed with patient and family and wish to remain full code. Radiation oncology following as well and tentatively plan for palliative radiation of the gastric tumor and currently awaiting J-tube placement at this time. Will repeat BMP and CBC, magnesium The impression and plan of care has been dictated by Ivet Yanez, Nurse Practitioner as directed. Dr. Yazmin MD I have performed a history and examination and MDM of this patient, discussed the same with the dictator, and agree with the dictator's assessment and plan as written ,documented as a scribe. Based on total visit time, I have performed more than 50% of the visit. Objective - Vital Signs Vital signs: Vital Signs Temp 97.9 F 10/30/24 11:32 Pulse 104 H 10/30/24 15:00 Resp 18 10/30/24 15:00 BP 146/95 10/30/24 15:00 Pulse Ox 96 10/30/24 15:00 FiO2 Intake & Output 10/29/24 10/30/24 10/30/24 18:59 06:59 18:59 Intake Total 268 701.917 Output Total 5 Balance 268 696.917 Weight 72.575 kg Intake: IV 700 Intake, IV Titration 28 1.917 Amount Diltiazem 125 mg In 1.917 Sodium Chloride 0.9% 100 ml @ 5 MG/HR 5 mls/hr IV .Q24H [facility] Rx#:[id number] Mvi, Adult No.4 with Vit 28 K 10 ml Trace (Conc-1Ml/ Dose) 1 ml Sodium Chloride 4Meq/ml Vial 48 meq Potassium Chloride 10 meq In Amino Acid 5%- D20w+Lytes*E* 1,000 ml @ 85 mls/hr IV .BY DURATION MEKA Rx#:[id number] Oral 240 Output: Estimated Blood Loss 5 Other: Voiding Method Toilet Urinal Urinal Urinal # Voids 2 1 - Labs CBC & Chem 7: 10/30/24 04:14 10/30/24 04:14 Labs: Abnormal Lab Results - Last 24 Hours (Table) 10/29/24 10/30/24 10/30/24 Range/Units 17:54 01:55 04:14 WBC (3.8-10.6) k/uL RBC (4.30-5.90) m/uL Hgb (13.0-17.5) gm/dL Hct (39.0-53.0) % MCHC (31.0-37.0) g/dL Neutrophils # (1.3-7.7) k/uL Monocytes # (0-1.0) k/uL Sodium 132 L (137-145) mmol/L BUN 23 H (9-20) mg/dL Glucose 155 H (74-99) mg/dL POC Glucose (mg/dL) 139 H 178 H (70-110) mg/dL Calcium 8.2 L (8.4-10.2) mg/dL Total Bilirubin 3.0 H (0.2-1.3) mg/dL AST 228 H (17-59) U/L ALT 75 H (4-49) U/L Alkaline Phosphatase 145 H (38-126) U/L Total Protein 5.7 L (6.3-8.2) g/dL Albumin 2.4 L (3.5-5.0) g/dL 10/30/24 10/30/24 Range/Units 04:14 05:57 WBC 12.6 H (3.8-10.6) k/uL RBC 3.34 L (4.30-5.90) m/uL Hgb 9.9 L (13.0-17.5) gm/dL Hct 32.4 L (39.0-53.0) % MCHC 30.4 L (31.0-37.0) g/dL Neutrophils # 9.4 H (1.3-7.7) k/uL Monocytes # 1.4 H (0-1.0) k/uL Sodium (137-145) mmol/L BUN (9-20) mg/dL Glucose (74-99) mg/dL POC Glucose (mg/dL) 143 H (70-110) mg/dL Calcium (8.4-10.2) mg/dL Total Bilirubin (0.2-1.3) mg/dL AST (17-59) U/L ALT (4-49) U/L Alkaline Phosphatase (38-126) U/L Total Protein (6.3-8.2) g/dL Albumin (3.5-5.0) g/dL Microbiology - Last 24 Hours (Table) 10/26/24 17:03 Blood Culture - Preliminary Blood Assessment and Plan Time with Patient: Less than 30
[2024-10-30] MEDS ORDERED: 1: MVI, ADULT NO.4 WITH VIT K 10 ML, TRACE (CONC-1ML/DOSE) 1 ML, SODIUM CHLORIDE 4MEQ/ML IV SCH (17:00)
[2024-10-30] MEDS ORDERED: HYDROmorphone 0.5 MG/0.5 ML SYRINGE IVP PRN (17:53)
[2024-10-30 18:05] LABS: Glucose,Whole Blood 118 mg/dL (70-110)
[2024-10-30] MEDS: LACTATED RINGERS 1,000 ML IV SCH ×2 (18:31)
[2024-10-30] MEDS: HYDROmorphone 1 MG/ML 1 ML SYRINGE IVP PRN (21:00)
[2024-10-30] MEDS: 1: MVI, ADULT NO.4 WITH VIT K 10 ML, TRACE (CONC-1ML/DOSE) 1 ML, SODIUM CHLORIDE 4MEQ/ML IV SCH (21:01)
[2024-10-30] MEDS: FAT EMULSION 20% 250 ML in EMPTY BAG 1 BAG IV SCH (21:01)
[2024-10-30 23:52] LABS: Glucose,Whole Blood 256 mg/dL (70-110)
[2024-10-31 06:08] LABS: Glucose,Whole Blood 264 mg/dL (70-110)
[2024-10-31 07:08] LABS: Basophils % (A) 0 %; Eosinophils % (A) 0 %; HCT 31.5 % (39.0-53.0); HGB 9.6 gm/dL (13.0-17.5); Hypochromasia Moderate; Lymphocytes # (A) 0.8 k/uL (1.0-4.8); Lymphocytes % (A) 5 %; MCH 29.5 pg (25.0-35.0); MCHC 30.4 g/dL (31.0-37.0); Mean Platelet Volume 8.9; Monocytes # (A) 1.1 k/uL (0-1.0); Monocytes % (A) 7 %; Neutrophils # (A) 13.7 k/uL (1.3-7.7); Neutrophils % (A) 87 %; Platelet Count 269 k/uL (150-450); RBC 3.25 m/uL (4.30-5.90); RDW 13.5 % (11.5-15.5); WBC 15.8 k/uL (3.8-10.6)
[2024-10-31 07:27] LABS: African American GFR (CKD) >90 (>60 ml/min/1.73 sqM); Anion Gap 11 mmol/L; Blood Urea Nitrogen 31 mg/dL (9-20); Calcium 8.4 mg/dL (8.4-10.2); Carbon Dioxide 21 mmol/L (22-30); Chloride 101 mmol/L (98-107); Glucose 256 mg/dL (74-99); Magnesium 2.4 mg/dL (1.6-2.3); Non-African American GFR(CKD) 81 (>60 ml/min/1.73 sqM); Phosphorus 4.9 mg/dL (2.5-4.5); Potassium 4.8 mmol/L (3.5-5.1); Sodium 133 mmol/L (137-145)
--- NOTE | 2024-10-31 11:05 | P.PN ---
Subjective Progress Note Date: 10/31/24 SURGICAL PROGRESS NOTE CHIEF COMPLAINT: Gastric cancer HISTORY OF PRESENT ILLNESS: Patient is postop day #1 status post open jejunostomy feeding tube placement. Patient's pain is controlled. He has had a small amount of flatus. He is on the cardiac floor due to A-fib with RVR. Liver biopsy had reported metastatic adenocarcinoma consistent with upper GI primary. Afebrile. WBC is up from 12-15.8 Hgb 9.6 PHYSICAL EXAM: VITAL SIGNS: Reviewed. GENERAL: Well-developed in no acute distress. ABDOMEN: Soft. Mildly distended. Incisional dressing clean dry and intact. J-tube in place. ASSESSMENT: 1. Gastric cancer 2. Pyloric stenosis with gastric outlet obstruction due to gastric tumor 3. Liver lesion 4. Severe protein calorie malnutrition PLAN: -Keep patient n.p.o. -Tube feeds via J-tube to start on 11/02/2024 -No medications ever to go down the J-tube -Continue TPN for nutrition support for now Physician Chrome Cleaner note has been reviewed by physician. Signing provider agrees with the documented findings, assessment, and plan of care. Objective - Vital Signs Vital signs: Vital Signs Temp 97.6 F 10/31/24 07:19 Pulse 107 H 10/31/24 07:19 Resp 16 10/31/24 07:19 BP 184/94 10/31/24 07:19 Pulse Ox 94 L 10/31/24 08:15 FiO2 Intake & Output 10/30/24 10/31/24 10/31/24 18:59 06:59 18:59 Intake Total 757.750 39.5 Output Total 5 400 850 Balance 752.750 -360.5 -850 Weight 72.575 kg 67.1 kg Intake: IV 700 Intake, IV Titration 57.750 39.5 Amount Diltiazem 125 mg In 57.750 39.5 Sodium Chloride 0.9% 100 ml @ 5 MG/HR 5 mls/hr IV .Q24H [facility] Rx#:[id number] Output: Urine 200 850 Post Void Residual 200 Estimated Blood Loss 5 Other: Voiding Method Urinal Urinal # Voids 1 # Bowel Movements 0 - Labs CBC & Chem 7: 10/31/24 06:30 10/31/24 06:30 Labs: Abnormal Lab Results - Last 24 Hours (Table) 10/30/24 10/30/24 10/31/24 Range/Units 18:04 23:50 06:06 WBC (3.8-10.6) k/uL RBC (4.30-5.90) m/uL Hgb (13.0-17.5) gm/dL Hct (39.0-53.0) % MCHC (31.0-37.0) g/dL Neutrophils # (1.3-7.7) k/uL Lymphocytes # (1.0-4.8) k/uL Monocytes # (0-1.0) k/uL Sodium (137-145) mmol/L Carbon Dioxide (22-30) mmol/L BUN (9-20) mg/dL Glucose (74-99) mg/dL POC Glucose (mg/dL) 118 H 256 H 264 H (70-110) mg/dL Phosphorus (2.5-4.5) mg/dL Magnesium (1.6-2.3) mg/dL 10/31/24 10/31/24 Range/Units 06:30 06:30 WBC 15.8 H (3.8-10.6) k/uL RBC 3.25 L (4.30-5.90) m/uL Hgb 9.6 L (13.0-17.5) gm/dL Hct 31.5 L (39.0-53.0) % MCHC 30.4 L (31.0-37.0) g/dL Neutrophils # 13.7 H (1.3-7.7) k/uL Lymphocytes # 0.8 L (1.0-4.8) k/uL Monocytes # 1.1 H (0-1.0) k/uL Sodium 133 L (137-145) mmol/L Carbon Dioxide 21 L (22-30) mmol/L BUN 31 H (9-20) mg/dL Glucose 256 H (74-99) mg/dL POC Glucose (mg/dL) (70-110) mg/dL Phosphorus 4.9 H (2.5-4.5) mg/dL Magnesium 2.4 H (1.6-2.3) mg/dL
[2024-10-31 12:20] LABS: Glucose,Whole Blood 233 mg/dL (70-110)
[2024-10-31 14:22] VITALS: BMI 24.6
[2024-10-31] MEDS ORDERED: MAGNESIUM SULFATE-D5W PMX 1 GM in DEXTROSE/WATER 1 100ML.BAG IVPB SCH (14:30)
[2024-10-31] MEDS: MAGNESIUM SULFATE-D5W PMX 1 GM in DEXTROSE/WATER 1 100ML.BAG IVPB SCH ×2 (15:16→18:28)
[2024-10-31 17:03] LABS: Glucose,Whole Blood 193 mg/dL (70-110)
--- NOTE | 2024-10-31 17:21 | P.PN ---
Subjective Progress Note Date: 10/31/24 S/p j tube placement. Continues on TPN with plan to start tube feedings Sunday. Reporting pain is controlled. Denies n/v Objective - Vital Signs Vital signs: Vital Signs Temp 97.6 F 10/31/24 07:19 Pulse 107 H 10/31/24 12:35 Resp 16 10/31/24 12:35 BP 167/94 10/31/24 12:35 Pulse Ox 95 10/31/24 12:35 FiO2 Intake & Output 10/30/24 10/31/24 10/31/24 18:59 06:59 18:59 Intake Total 757.750 39.5 0 Output Total 5 400 850 Balance 752.750 -360.5 -850 Weight 72.575 kg 67.1 kg 67.1 kg Intake: IV 700 Intake, IV Titration 57.750 39.5 Amount Diltiazem 125 mg In 57.750 39.5 Sodium Chloride 0.9% 100 ml @ 5 MG/HR 5 mls/hr IV .Q[facility]H [facility] Rx#:[id number] Oral 0 Output: Urine 200 850 Post Void Residual 200 Estimated Blood Loss 5 Other: Voiding Method Urinal Urinal # Voids 1 # Bowel Movements 0 - Constitutional General appearance: Present: no acute distress - EENT Eyes: Present: scleral icterus - Respiratory Details: breathing is even and unlabored - Cardiovascular Details: skin warm and dry - Integumentary Integumentary: Present: jaundiced - Musculoskeletal Musculoskeletal: Present: generalized weakness - Psychiatric Psychiatric: Present: A&O x's 3 - Labs CBC & Chem 7: 10/31/24 06:30 10/31/24 06:30 Labs: Abnormal Lab Results - Last 24 Hours (Table) 10/30/24 10/30/24 10/31/24 Range/Units 18:04 23:50 06:06 WBC (3.8-10.6) k/uL RBC (4.30-5.90) m/uL Hgb (13.0-17.5) gm/dL Hct (39.0-53.0) % MCHC (31.0-37.0) g/dL Neutrophils # (1.3-7.7) k/uL Lymphocytes # (1.0-4.8) k/uL Monocytes # (0-1.0) k/uL Sodium (137-145) mmol/L Carbon Dioxide (22-30) mmol/L BUN (9-20) mg/dL Glucose (74-99) mg/dL POC Glucose (mg/dL) 118 H 256 H 264 H (70-110) mg/dL Phosphorus (2.5-4.5) mg/dL Magnesium (1.6-2.3) mg/dL 10/31/24 10/31/24 10/31/24 Range/Units 06:30 06:30 12:09 WBC 15.8 H (3.8-10.6) k/uL RBC 3.25 L (4.30-5.90) m/uL Hgb 9.6 L (13.0-17.5) gm/dL Hct 31.5 L (39.0-53.0) % MCHC 30.4 L (31.0-37.0) g/dL Neutrophils # 13.7 H (1.3-7.7) k/uL Lymphocytes # 0.8 L (1.0-4.8) k/uL Monocytes # 1.1 H (0-1.0) k/uL Sodium 133 L (137-145) mmol/L Carbon Dioxide 21 L (22-30) mmol/L BUN 31 H (9-20) mg/dL Glucose 256 H (74-99) mg/dL POC Glucose (mg/dL) 233 H (70-110) mg/dL Phosphorus 4.9 H (2.5-4.5) mg/dL Magnesium 2.4 H (1.6-2.3) mg/dL Assessment and Plan (1) Abnormal CT scan Current Visit: Yes Status: Acute Priority: High Code(s): R93.89 - ABNORMAL FINDINGS ON DX IMAGING OF OTH BODY STRUCTURES SNOMED Code(s): 096836441 (2) Nausea and vomiting Current Visit: Yes Status: Acute Priority: Medium Code(s): R11.2 - NAUSEA WITH VOMITING, UNSPECIFIED SNOMED Code(s): 43879256 Plan: Metastatic gastric adenocarcinoma: Patient presented to the emergency room for nausea vomiting and associated decreased oral intake over the last 1 week. He endorses approximate 30 pound weight loss over the last couple weeks, but family is unsure if this is accurate. Family reports patient is a heavy daily drinker, consuming up to a case of beer daily. Patient denies bowel changes, hematochezia and melena and hematemesis -Upon admit CT abdomen and pelvis with contrast showing innumerable hypodense le sions throughout the liver. Additionally there is surface nodularity of the liver which could be due to hepatic cirrhosis versus pseudocirrhosis from the noted lesions. Enlarged right lower lobe 1.1 cm pulmonary nodule. Circumferential wall thickening of the gastric antrum. Scattered colonic div erticuli without evidence of acute diverticulitis. -S/p EGD with 4 cm raised ulcerated lesion in the antrum of the stomach concerning in the pylorus causing pyloric stenosis with gastric outlet obst ruction and large amount of retained food in the stomach. -General surgery has been consulted for evaluation for J-tube. TPN has been started, pending pathology -Gastric ulcer pathology positive for invasive gastric adenocarcinoma. Liver biopsy positive for metastatic poorly differentiated adenocarcinoma consistent with upper GI tract primary -Case discussed with Dr. Britton. Recommending palliative RT to gastric tumor causing gastric outlet obstruction -S/p j tube placement, with plans to start tube feedings Sunday. Continues TPN for now -[id number] requested on pathology. Will plan for outpt PET CT and guardant 360. Clinic f/u in discharge plan Discussed findings/diagnosis and POC with pt and family. He was agreeable to the same. All questions and concerns were addressed Dr briggs: I have seen and examined pt, performed H&P, developed impression and plan of care. Discussed with dictator. Agree with documentation, dictated as a scribe.
[2024-10-31] MEDS: INSULIN LISPRO (HumaLOG) 100 UNIT/ML 10 mL VL SQ SCH (18:29)
[2024-10-31] MEDS: 1: MVI, ADULT NO.4 WITH VIT K 10 ML, TRACE (CONC-1ML/DOSE) 1 ML, SODIUM CHLORIDE 4MEQ/ML IV SCH (18:53)
--- NOTE | 2024-10-31 19:47 | P.PN ---
Subjective Progress Note Date: 10/31/24 Patient is postoperative day 1 after the J-tube placement. Thereafter the procedure patient developed atrial fibrillation with RVR for which she was started on Cardizem drip and was transferred to the third floor. His liver biopsy of showed metastatic adenocarcinoma. SUBJECTIVE: Patient is seen and examined at bedside this a.m. He is very weak. He is in atrial fibrillation with average heart rate around 90 - 110 bpm BP 158 over 82 bpm. It appears that patient's heart rate and blood pressures are elevated when he is in pain. PHYSICAL EXAMINATION Vital signs reviewed. Neck: Brisk carotid upstroke, no jugular venous distention. Lungs: Poor respiratory effort with mild crackles Heart: Irregularly irregular pulse, mild systolic murmur audible, Abdomen: Mild abdominal tenderness, surgical dressing in place, G-tube in place Extremities: 1+ edema Neuro: Alert, mildly confused,. Detailed neuro exam was not performed. ASSESSMENT Atrial fibrillation with RVR Gastric cancer Pyloric stenosis with gastric outlet obstruction status post J-tube placement Metastatic liver disease Severe protein calorie energy malnutrition PLAN Continue IV Cardizem drip as patient is not able to continue to tolerate oral medication Give magnesium 2 g then followed by 3 g for assisting with rate control Once patient starts tolerating oral medication, consider changing Cardizem to p.o. metoprolol. Ambrosio Gtz MD, FACC, RPVI Thank you for allowing [facility] to participate in this patient's care. Please contact us in case of any followup questions. Objective - Vital Signs Vital signs: Vital Signs Temp 98.3 F 10/31/24 19:42 Pulse 125 H 10/31/24 19:42 Resp 18 10/31/24 19:42 BP 158/82 10/31/24 19:42 Pulse Ox 94 L 10/31/24 19:42 FiO2 Intake & Output 10/31/24 10/31/24 11/01/24 06:59 18:59 06:59 Intake Total 39.5 0 Output Total 400 1300 Balance -360.5 -1300 Weight 67.1 kg 67.1 kg Intake: Intake, IV Titration 39.5 Amount Diltiazem 125 mg In 39.5 Sodium Chloride 0.9% 100 ml @ 5 MG/HR 5 mls/hr IV .Q24H [facility] Rx#:[id number] Oral 0 Output: Urine 200 1300 Post Void Residual 200 Other: Voiding Method Urinal # Voids 1 # Bowel Movements 0 - Labs CBC & Chem 7: 10/31/24 06:30 10/31/24 06:30 Labs: Abnormal Lab Results - Last 24 Hours (Table) 10/30/24 10/31/24 10/31/24 Range/Units 23:50 06:06 06:30 WBC 15.8 H (3.8-10.6) k/uL RBC 3.25 L (4.30-5.90) m/uL Hgb 9.6 L (13.0-17.5) gm/dL Hct 31.5 L (39.0-53.0) % MCHC 30.4 L (31.0-37.0) g/dL Neutrophils # 13.7 H (1.3-7.7) k/uL Lymphocytes # 0.8 L (1.0-4.8) k/uL Monocytes # 1.1 H (0-1.0) k/uL Sodium (137-145) mmol/L Carbon Dioxide (22-30) mmol/L BUN (9-20) mg/dL Glucose (74-99) mg/dL POC Glucose (mg/dL) 256 H 264 H (70-110) mg/dL Phosphorus (2.5-4.5) mg/dL Magnesium (1.6-2.3) mg/dL Triglycerides (0.00-149.00) mg/dL 10/31/24 10/31/24 10/31/24 Range/Units 06:30 12:09 16:53 WBC (3.8-10.6) k/uL RBC (4.30-5.90) m/uL Hgb (13.0-17.5) gm/dL Hct (39.0-53.0) % MCHC (31.0-37.0) g/dL Neutrophils # (1.3-7.7) k/uL Lymphocytes # (1.0-4.8) k/uL Monocytes # (0-1.0) k/uL Sodium 133 L (137-145) mmol/L Carbon Dioxide 21 L (22-30) mmol/L BUN 31 H (9-20) mg/dL Glucose 256 H (74-99) mg/dL POC Glucose (mg/dL) 233 H 193 H (70-110) mg/dL Phosphorus 4.9 H (2.5-4.5) mg/dL Magnesium 2.4 H (1.6-2.3) mg/dL Triglycerides 202.00 H (0.00-149.00) mg/dL
[2024-10-31 20:09] LABS: Glucose,Whole Blood 202 mg/dL (70-110)
[2024-11-01 00:21] LABS: Glucose,Whole Blood 176 mg/dL (70-110)
[2024-11-01] MEDS: DILTIAZEM 125 MG in SODIUM CHLORIDE 0.9% 100 ML IV SCH (04:44)
[2024-11-01 06:24] LABS: Glucose,Whole Blood 146 mg/dL (70-110)
[2024-11-01 07:38] LABS: Basophils % (A) 0 %; Eosinophils # (A) 0.1 k/uL (0-0.7); Eosinophils % (A) 0 %; HCT 31.8 % (39.0-53.0); HGB 9.8 gm/dL (13.0-17.5); Hypochromasia Moderate; Lymphocytes % (A) 7 %; MCH 29.6 pg (25.0-35.0); MCHC 30.8 g/dL (31.0-37.0); MCV 95.9 fL (80.0-100.0); Mean Platelet Volume 8.4; Monocytes # (A) 1.3 k/uL (0-1.0); Monocytes % (A) 9 %; Neutrophils # (A) 11.7 k/uL (1.3-7.7); Neutrophils % (A) 81 %; Platelet Count 284 k/uL (150-450); RBC 3.32 m/uL (4.30-5.90); RDW 13.3 % (11.5-15.5); WBC 14.4 k/uL (3.8-10.6)
[2024-11-01 07:39] LABS: African American GFR (CKD) >90 (>60 ml/min/1.73 sqM); Anion Gap 7 mmol/L; Blood Urea Nitrogen 28 mg/dL (9-20); Calcium 8.3 mg/dL (8.4-10.2); Carbon Dioxide 27 mmol/L (22-30); Chloride 102 mmol/L (98-107); Glucose 151 mg/dL (74-99); Magnesium 2.9 mg/dL (1.6-2.3); Non-African American GFR(CKD) 88 (>60 ml/min/1.73 sqM); Phosphorus 3.2 mg/dL (2.5-4.5); Potassium 4.5 mmol/L (3.5-5.1); Sodium 136 mmol/L (137-145)
--- NOTE | 2024-11-01 08:31 | P.PN ---
Subjective Progress Note Date: 10/31/24 This is a pleasant 74-year-old male who presented to the emergency department with intense abdominal pain along with nausea and vomiting being closely monitored. Patient reports he follows with Dr. Damion Candelario' WINSTON Kelly at the [facility] in [place] with a past medical history of chronic A-fib, nicotine dependence, alcoholic cirrhosis, right pulmonary nodule, daily alcohol use and obesity. Patient denies any other illicit drug use and reports has not had a drink in over a week and a half as he has not been feeling well. Per family patient has not been eating the greatest and has been having excessive nausea and vomiting. Patient also was noted to have multiple episodes of diarrhea which has since resolved. Patient was admitted after undergoing CT abdomen which shows innumerable hypodense lesions throughout the liver most consistent with metastasis from an unknown primary malignancy, additionally there is surface nodularity of the liver which could be due to hepatic cirrhosis versus pseudocirrhosis from the lesions, and an enlarged right lower lobe 1.1 cm nodule concerning for metastasis as well as circumferential wall thickening of the gastric antrum which could represent malignancy versus gastritis along with scattered colonic diverticula without evidence of acute diverticulitis. Labs reveal a normal white count of 10.4, hemoglobin 14.4, platelets 249, sodium 132, potassium 4.0, BUN 14 and creatinine 1.23. Total bili is 1.6 with an AST of 149 and ALT is 46 urinalysis was negative, and influenza, RSV, COVID were all negative as well. Patient was started on gentle hydration along with supportive care and pain management with a consult to GI as well as oncology and interventional radiology for possible biopsy. 10/22/2024 Patient is seen in follow-up today with oncology and GI following. Patient unable to tolerate the GoLytely bowel prep and will be undergoing EGD for further evaluation. Patient is currently n.p.o. although requesting a diet and advance in diet as he feels hungry. Patient has had no further bowel movements, highly unlikely for C. difficile. Patient is also scheduled for biopsy with interventional radiology although patient had been taking Coumadin and will need to wait until Sunday to perform this. Patient is afebrile denies any further abdominal pain and denies any chest pain other than intermittently. Patient reports to feeling epigastric discomfort that resolves. 10/23/2024 Patient is seen in follow-up today with multiple consultations following. Patient is status post EGD maintained on clear liquids. Coumadin is on hold patient is scheduled to undergo biopsy of the liver with interventional radiology tomorrow. General surgery consulted in the event patient will need a J-tube placement for oral intake per recommendations of GI. Patient will be scheduled for PICC line and possible TPN initiation while awaiting biopsies reports. Patient is afebrile and denies any chest pain or shortness of breath. Patient reports to feeling improved with some pain although is currently managed on current regimen. Patient did have an episode of nausea but will continue supportive care. 10/24/2024 Patient is seen in follow-up today currently vomiting is daughter reports he does drink a whole glass of water. Patient to be n.p.o. except occasional sips with medicines and ice chips this patient is not tolerating much oral intake. TPN being initiated and patient does have a PICC line. Patient is status post biopsy of the liver which is pending and pathology from EGD remains pending as well. G-tube placement per general surgery is on hold while awaiting path results. Patient is afebrile reports some mild abdominal pain with no reports of chest pain or shortness of breath. Patient reports has been getting up and getting to the bathroom with no difficulties. 10/25/2024 Patient is seen in follow-up today with the inability to tolerate very much oral intake due to abdominal pain. Per nursing staff patient was reporting abdominal pain and upper right quadrant pain although family was reporting he was having chest pain and EKG was done showing atrial fibrillation and also other family members have been in and out of the room multiple times and were reported to have influenza. Cepheid including COVID, influenza, RSV are negative. Patient should just be occasional ice chips and sips of water with medicines otherwise n.p.o. and patient is continued on TPN. Continuing to await for biopsy results. 10/26/2024 Patient is seen in follow-up today currently maintained on TPN continuing to await biopsy results. Patient is status post liver biopsy as well as multiple biopsies that were taking on EGD. Patient seen in follow-up today with multiple family members at bedside. Patient reports feeling okay currently not eating or drinking much. Patient is having few sips with medications. Patient did note to having increased abdominal pain but denies any vomiting, continues with intermittent nausea. Patient denies any further bowel movement and is continued on TPN. General surgery following with no plans of immediate intervention and awaiting pathology reports from biopsies to determine treatment plan moving forward. Unsure if patient will be receiving G-tube. Patient did have a low- grade temp today. Per patient family, they may have noticed some blood in the urine. Hemoglobin is stable and will monitor closely. Likely secondary to resuming Coumadin and maintained on heparin. Until INR is therapeutic 10/27/2024 Patient is seen in follow-up today and had a brief conversation with general surgery. Plan is for holding Coumadin and continuing with Lovenox and/or heparin for now and surgical intervention on , 10/30/2024. Gastric biopsy positive for gastric adenocarcinoma. Patient continues to be n.p.o. except for ice chips. Will continue subcutaneous heparin for now and will hold night before surgery tentatively scheduled for . Sodium 127 today and potassium 3.4. Patient continues on TPN and pharmacy with dietary to adjust formula. 10/28/2024 Patient is seen and evaluated in follow-up today multiple consultations following and plan is for surgery on due to gastric adenocarcinoma. Per surgery, they will proceed with G-tube placement for nutrition and no plans for surgery as it is contraindicated. Radiation oncology following as well and discussed palliative treatment and patient and family are agreeable. Patient having occasional low-grade temps and multiple testings were negative for any acute infectious process including virology testing repeated which was negative. Patient continues to have some abdominal discomfort and reports no further bowel movements at this time. 10/29/2024 Patient is seen in follow-up today with multiple family members at the bedside. Patient is currently n.p.o. except occasional sips of water for medications and ice chips. Currently continued on TPN making adjustments and sodium slightly improved. White count is mildly elevated although trending down and will follow-up on repeat labs. Patient being followed by multiple consultations including oncology, radiation oncology and general surgery. Plan is for open jejunostomy tube placement with surgery on 10/30/2024. Radiation oncology planning on palliative radiation to help alleviate symptoms of the pyloric stenosis secondary to gastric tumor. 10/30/2024 Evaluated in follow-up currently n.p.o. for surgery and will be going for a J- tube placement early this morning. Work today reveals a white blood cell count of 12.6, hemoglobin 9.9, sodium level of 132, BUN of 23 creatinine of 0.84. His LFTs remain elevated with an AST of 228 ALT of 75 alk phos of 145. He is on room air with oxygen saturations of 97%. Recommendations to follow after surgery. 10/31/2024 Patient is seen in follow-up with multiple consultations following. Patient continues on Cardizem drip and has been instructed to hold Coumadin for another 24 hours per surgery and will resume starting tomorrow. Patient is status post J-tube placement and will be able to use starting Sunday per surgery. Continue with current regimen with multiple consultations following including oncology, radiation oncology, general surgery, cardiology. Patient continues to report a bdominal pain at the G-tube site as well although appears clean dry and intact and currently taped until being used. Review of systems: Constitutional: reports of fatigue, no further reports of low-grade fever, or chills Cardiovascular: Patient denies chest pain, denies palpitations Respiratory: No reports of shortness of breath or cough GI: reports of intermittent nausea, no vomiting today, no further diarrhea, continued upper abdominal pain and pain at the surgical site possibly secondary to the tape : No reports of dysuria or retention Neurovascular: reports of generalized weakness All medications have been reviewed PHYSICAL EXAMINATION: GENERAL: The patient is alert and oriented x3, mildly anxious, alert and oriented well developed, elderly appearing HEENT: Pupils are round and equally reacting to light. EOMI. No scleral icterus. No conjunctival pallor. Normocephalic, atraumatic. No pharyngeal erythema. No thyromegaly. CARDIOVASCULAR: S1 and S2 muffled PULMONARY: Diminished breath sounds bilaterally otherwise chest is clear to auscultation, no wheezing or crackles. ABDOMEN: Soft, mildly tender, nondistended, normoactive bowel sounds. No palpable organomegaly. MUSCULOSKELETAL: No joint swelling or deformity. EXTREMITIES: No cyanosis, clubbing, or pedal edema. NEUROLOGICAL: Gross neurological examination did not reveal any focal deficits. SKIN: No rashes. Assessment: Abdominal pain with nausea and vomiting likely secondary to invasive gastric adenocarcinoma 4 cm ulcerated lesion noted on the antrum causing significant pyloric stenosis with gastric outlet obstruction as found on EGD multiple hypodense lesions noted throughout the liver most consistent with metastasis, status post biopsy and pending results Nausea/vomiting/diarrhea, acute gastritis, status post EGD revealing a 4 cm ulcerated lesion causing significant pyloric stenosis, gastric biopsy positive for invasive History of chronic A-fib, was on Coumadin, although will hold and okay to resume Coumadin starting 11/01/2024 per surgery Hypertension Continued ongoing nicotine dependence Chronic daily alcohol use, last drink approximately 1.5 weeks prior to hospitalization Acute kidney injury, ATN, likely secondary to nausea, vomiting, diarrhea, improved Diarrhea, ruled out C. difficile, no further episodes of diarrhea elevated LFTs and total bilirubin, likely secondary to chronic alcohol use Known right pulmonary nodule with no outpatient follow-up, noted again on CT History of hyperlipidemia Severe protein calorie malnutrition, currently maintained on TPN GI prophylaxis DVT prophylaxis Full code Plan: Patient being followed by multiple consultations including oncology, general surgery, GI as well as radiation oncology and patient is status post EGD with biopsies along with liver biopsy which remains pending. Gastric biopsy positive for adenocarcinoma. Patient will follow-up in the outpatient setting with oncology and recommend PET testing outpatient. Patient is on Coumadin and will be held until tomorrow 11/01/2024 per surgery as patient underwent j-tube placement 10/31/2024. Resection is contraindicated per surgery Patient has received a PICC line and is maintained on TPN. Continue n.p.o. as patient is not tolerating much oral intake and general surgery recommends strict n.p.o. Continue to encourage incentive spirometer use at least 10 times every hour while awake Encouraged increase activity as tolerated CODE STATUS was addressed with patient and family and wish to remain full code. Radiation oncology following as well and tentatively plan for palliative radiation of the gastric tumor and currently awaiting further discussion Will repeat BMP and CBC, magnesium The impression and plan of care has been dictated by Emma Garcia, Nurse Practitioner as directed. Dr. Yazmin MD I have performed a history and examination and MDM of this patient, discussed the same with the dictator, and agree with the dictator's assessment and plan as written ,documented as a scribe. Based on total visit time, I have performed more than 50% of the visit. Objective - Vital Signs Vital signs: Vital Signs Temp 97.6 F 10/31/24 07:19 Pulse 107 H 10/31/24 07:19 Resp 16 10/31/24 07:19 BP 184/94 10/31/24 07:19 Pulse Ox 94 L 10/31/24 08:15 FiO2 Intake & Output 10/30/24 10/31/24 10/31/24 18:59 06:59 18:59 Intake Total 757.750 39.5 Output Total 5 400 850 Balance 752.750 -360.5 -850 Weight 72.575 kg 67.1 kg Intake: IV 700 Intake, IV Titration 57.750 39.5 Amount Diltiazem 125 mg In 57.750 39.5 Sodium Chloride 0.9% 100 ml @ 5 MG/HR 5 mls/hr IV .Q24H [facility] Rx#:[id number] Output: Urine 200 850 Post Void Residual 200 Estimated Blood Loss 5 Other: Voiding Method Urinal Urinal # Voids 1 # Bowel Movements 0 - Labs CBC & Chem 7: 11/01/24 06:35 11/01/24 06:35 Labs: Abnormal Lab Results - Last 24 Hours (Table) 10/30/24 10/30/24 10/31/24 Range/Units 18:04 23:50 06:06 WBC (3.8-10.6) k/uL RBC (4.30-5.90) m/uL Hgb (13.0-17.5) gm/dL Hct (39.0-53.0) % MCHC (31.0-37.0) g/dL Neutrophils # (1.3-7.7) k/uL Lymphocytes # (1.0-4.8) k/uL Monocytes # (0-1.0) k/uL Sodium (137-145) mmol/L Carbon Dioxide (22-30) mmol/L BUN (9-20) mg/dL Glucose (74-99) mg/dL POC Glucose (mg/dL) 118 H 256 H 264 H (70-110) mg/dL Phosphorus (2.5-4.5) mg/dL Magnesium (1.6-2.3) mg/dL 10/31/24 10/31/24 Range/Units 06:30 06:30 WBC 15.8 H (3.8-10.6) k/uL RBC 3.25 L (4.30-5.90) m/uL Hgb 9.6 L (13.0-17.5) gm/dL Hct 31.5 L (39.0-53.0) % MCHC 30.4 L (31.0-37.0) g/dL Neutrophils # 13.7 H (1.3-7.7) k/uL Lymphocytes # 0.8 L (1.0-4.8) k/uL Monocytes # 1.1 H (0-1.0) k/uL Sodium 133 L (137-145) mmol/L Carbon Dioxide 21 L (22-30) mmol/L BUN 31 H (9-20) mg/dL Glucose 256 H (74-99) mg/dL POC Glucose (mg/dL) (70-110) mg/dL Phosphorus 4.9 H (2.5-4.5) mg/dL Magnesium 2.4 H (1.6-2.3) mg/dL
[2024-11-01 09:44] LABS: INR 1.1 (<1.2); Prothrombin Time 11.7 sec (10.0-12.5)
[2024-11-01] MEDS: DEXTROSE 5%-0.45% NACL 1,000 ML IV SCH (11:12)
--- NOTE | 2024-11-01 11:13 | P.PN ---
Subjective This is a pleasant 74-year-old male who presented to the emergency department with intense abdominal pain along with nausea and vomiting being closely monitored. Patient reports he follows with Dr. Damion Candelario' WINSTON Kelly at the [facility] in [place] with a past medical history of chronic A-fib, nicotine dependence, alcoholic cirrhosis, right pulmonary nodule, daily alcohol use and obesity. Patient denies any other illicit drug use and reports has not had a drink in over a week and a half as he has not been feeling well. Per family patient has not been eating the greatest and has been having excessive nausea and vomiting. Patient also was noted to have multiple episodes of diarrhea which has since resolved. Patient was admitted after undergoing CT abdomen which shows innumerable hypodense lesions throughout the liver most c onsistent with metastasis from an unknown primary malignancy, additionally there is surface nodularity of the liver which could be due to hepatic cirrhosis versus pseudocirrhosis from the lesions, and an enlarged right lower lobe 1.1 cm nodule concerning for metastasis as well as circumferential wall thickening of the gastric antrum which could represent malignancy versus gastritis along with scattered colonic diverticula without evidence of acute diverticulitis. Labs reveal a normal white count of 10.4, hemoglobin 14.4, platelets 249, sodium 132, potassium 4.0, BUN 14 and creatinine 1.23. Total bili is 1.6 with an AST of 149 and ALT is 46 urinalysis was negative, and influenza, RSV, COVID were all negative as well. Patient was started on gentle hydration along with supportive care and pain management with a consult to GI as well as oncology and interventional radiology for possible biopsy. 10/22/2024 Patient is seen in follow-up today with oncology and GI following. Patient unable to tolerate the GoLytely bowel prep and will be undergoing EGD for further evaluation. Patient is currently n.p.o. although requesting a diet and advance in diet as he feels hungry. Patient has had no further bowel movements, highly unlikely for C. difficile. Patient is also scheduled for biopsy with interventional radiology although patient had been taking Coumadin and will need to wait until Sunday to perform this. Patient is afebrile denies any further abdominal pain and denies any chest pain other than intermittently. Patient reports to feeling epigastric discomfort that resolves. 10/23/2024 Patient is seen in follow-up today with multiple consultations following. Patient is status post EGD maintained on clear liquids. Coumadin is on hold patient is scheduled to undergo biopsy of the liver with interventional radiology tomorrow. General surgery consulted in the event patient will need a J-tube placement for oral intake per recommendations of GI. Patient will be scheduled for PICC line and possible TPN initiation while awaiting biopsies reports. Patient is afebrile and denies any chest pain or shortness of breath. Patient reports to feeling improved with some pain although is currently managed on current regimen. Patient did have an episode of nausea but will continue supportive care. 10/24/2024 Patient is seen in follow-up today currently vomiting is daughter reports he does drink a whole glass of water. Patient to be n.p.o. except occasional sips with medicines and ice chips this patient is not tolerating much oral intake. TPN being initiated and patient does have a PICC line. Patient is status post biopsy of the liver which is pending and pathology from EGD remains pending as well. G-tube placement per general surgery is on hold while awaiting path results. Patient is afebrile reports some mild abdominal pain with no reports of chest pain or shortness of breath. Patient reports has been getting up and getting to the bathroom with no difficulties. 10/25/2024 Patient is seen in follow-up today with the inability to tolerate very much oral intake due to abdominal pain. Per nursing staff patient was reporting abdominal pain and upper right quadrant pain although family was reporting he was having chest pain and EKG was done showing atrial fibrillation and also other family members have been in and out of the room multiple times and were reported to have influenza. Cepheid including COVID, influenza, RSV are negative. Patient should just be occasional ice chips and sips of water with medicines otherwise n.p.o. and patient is continued on TPN. Continuing to await for biopsy results. 10/26/2024 Patient is seen in follow-up today currently maintained on TPN continuing to await biopsy results. Patient is status post liver biopsy as well as multiple biopsies that were taking on EGD. Patient seen in follow-up today with multiple family members at bedside. Patient reports feeling okay currently not eating or drinking much. Patient is having few sips with medications. Patient did note to having increased abdominal pain but denies any vomiting, continues with intermittent nausea. Patient denies any further bowel movement and is continued on TPN. General surgery following with no plans of immediate intervention and awaiting pathology reports from biopsies to determine treatment plan moving forward. Unsure if patient will be receiving G-tube. Patient did have a low- grade temp today. Per patient family, they may have noticed some blood in the urine. Hemoglobin is stable and will monitor closely. Likely secondary to resuming Coumadin and maintained on heparin. Until INR is therapeutic 10/27/2024 Patient is seen in follow-up today and had a brief conversation with general surgery. Plan is for holding Coumadin and continuing with Lovenox and/or heparin for now and surgical intervention on , 10/30/2024. Gastric biopsy positive for gastric adenocarcinoma. Patient continues to be n.p.o. except for ice chips. Will continue subcutaneous heparin for now and will hold night before surgery tentatively scheduled for . Sodium 127 today and potassium 3.4. Patient continues on TPN and pharmacy with dietary to adjust formula. 10/28/2024 Patient is seen and evaluated in follow-up today multiple consultations following and plan is for surgery on due to gastric adenocarcinoma. Per surgery, they will proceed with G-tube placement for nutrition and no plans for surgery as it is contraindicated. Radiation oncology following as well and discussed palliative treatment and patient and family are agreeable. Patient having occasional low-grade temps and multiple testings were negative for any acute infectious process including virology testing repeated which was negative. Patient continues to have some abdominal discomfort and reports no further bowel movements at this time. 10/29/2024 Patient is seen in follow-up today with multiple family members at the bedside. Patient is currently n.p.o. except occasional sips of water for medications and ice chips. Currently continued on TPN making adjustments and sodium slightly improved. White count is mildly elevated although trending down and will follow-up on repeat labs. Patient being followed by multiple consultations inc luding oncology, radiation oncology and general surgery. Plan is for open jejunostomy tube placement with surgery on 10/30/2024. Radiation oncology planning on palliative radiation to help alleviate symptoms of the pyloric stenosis secondary to gastric tumor. 10/30/2024 Evaluated in follow-up currently n.p.o. for surgery and will be going for a J- tube placement early this morning. Work today reveals a white blood cell count of 12.6, hemoglobin 9.9, sodium level of 132, BUN of 23 creatinine of 0.84. His LFTs remain elevated with an AST of 228 ALT of 75 alk phos of 145. He is on room air with oxygen saturations of 97%. Recommendations to follow after surgery. 10/31/2024 Patient is seen in follow-up with multiple consultations following. Patient continues on Cardizem drip and has been instructed to hold Coumadin for another 24 hours per surgery and will resume starting tomorrow. Patient is status post J-tube placement and will be able to use starting Sunday per surgery. Continue with current regimen with multiple consultations following including oncology, radiation oncology, general surgery, cardiology. Patient continues to report abdominal pain at the G-tube site as well although appears clean dry and intact and currently taped until being used. 02/01 Patient awake alert looks uncomfortable because of dehydration and dry mouth complaining from abdominal pain in the epigastric area about 7-8/10 in severity, no vomiting. He is getting TPN He status post jejunostomy for his invasive stomach cancer, is expected to use his jejunostomy tube tomorrow He is continued on Cardizem drip, TPN, IV Protonix, and warfarin for his mechanical valve and is going to get 7.5 mg today Other than his WBC is 14.4, stable, hemoglobin 9.8, liver enzymes were slightly elevated. No more fever over the last week. He is mildly tachycardic We will add small IV hydration D5 half-normal saline at 40 mL for a few hours Objective - Vital Signs Vital signs: Vital Signs Temp 98.2 F 11/01/24 08:00 Pulse 110 H 11/01/24 08:00 Resp 20 11/01/24 08:00 BP 184/104 11/01/24 08:00 Pulse Ox 95 11/01/24 08:05 FiO2 Intake & Output 10/31/24 11/01/24 11/01/24 18:59 06:59 18:59 Intake Total 0 125 Output Total 1300 625 Balance -1300 125 -625 Weight 67.1 kg 66.8 kg Intake: Intake, IV Titration 125 Amount Diltiazem 125 mg In 125 Sodium Chloride 0.9% 100 ml @ 5 MG/HR 5 mls/hr IV .Q24H [facility] Rx#:[id number] Oral 0 Output: Urine 1300 625 Other: Voiding Method Indwelling Catheter # Bowel Movements 0 - Exam GENERAL: The patient is alert and oriented x3, not in any acute distress. Well developed, well nourished. HEENT: Pupils are round and equally reacting to light. EOMI. No scleral icterus. No conjunctival pallor. Normocephalic, atraumatic. No pharyngeal erythema. No thyromegaly. CARDIOVASCULAR: S1 and S2 present. No murmurs, rubs, or gallops. PULMONARY: Chest is clear to auscultation, no wheezing , no crackles. Epigastric tenderness -ABDOMEN: Soft, epigastric tenderness ,nondistended, normoactive bowel sounds. No palpable organomegaly. MUSCULOSKELETAL: No joint swelling or deformity. EXTREMITIES: No cyanosis, clubbing, or pedal edema. NEUROLOGICAL: Gross neurological examination did not reveal any focal deficits. SKIN: No rashes. no petechiae. - Labs CBC & Chem 7: 11/01/24 06:35 11/01/24 06:35 Labs: Abnormal Lab Results - Last 24 Hours (Table) 10/31/24 10/31/24 10/31/24 Range/Units 06:30 12:09 16:53 WBC (3.8-10.6) k/uL RBC (4.30-5.90) m/uL Hgb (13.0-17.5) gm/dL Hct (39.0-53.0) % MCHC (31.0-37.0) g/dL Neutrophils # (1.3-7.7) k/uL Monocytes # (0-1.0) k/uL Sodium (137-145) mmol/L BUN (9-20) mg/dL Glucose (74-99) mg/dL POC Glucose (mg/dL) 233 H 193 H (70-110) mg/dL Calcium (8.4-10.2) mg/dL Magnesium (1.6-2.3) mg/dL Triglycerides 202.00 H (0.00-149.00) mg/dL 10/31/24 11/01/24 11/01/24 Range/Units 20:00 00:15 06:10 WBC (3.8-10.6) k/uL RBC (4.30-5.90) m/uL Hgb (13.0-17.5) gm/dL Hct (39.0-53.0) % MCHC (31.0-37.0) g/dL Neutrophils # (1.3-7.7) k/uL Monocytes # (0-1.0) k/uL Sodium (137-145) mmol/L BUN (9-20) mg/dL Glucose (74-99) mg/dL POC Glucose (mg/dL) 202 H 176 H 146 H (70-110) mg/dL Calcium (8.4-10.2) mg/dL Magnesium (1.6-2.3) mg/dL Triglycerides (0.00-149.00) mg/dL 11/01/24 11/01/24 Range/Units 06:35 06:35 WBC 14.4 H (3.8-10.6) k/uL RBC 3.32 L (4.30-5.90) m/uL Hgb 9.8 L (13.0-17.5) gm/dL Hct 31.8 L (39.0-53.0) % MCHC 30.8 L (31.0-37.0) g/dL Neutrophils # 11.7 H (1.3-7.7) k/uL Monocytes # 1.3 H (0-1.0) k/uL Sodium 136 L (137-145) mmol/L BUN 28 H (9-20) mg/dL Glucose 151 H (74-99) mg/dL POC Glucose (mg/dL) (70-110) mg/dL Calcium 8.3 L (8.4-10.2) mg/dL Magnesium 2.9 H (1.6-2.3) mg/dL Triglycerides (0.00-149.00) mg/dL Microbiology - Last 24 Hours (Table) 10/26/24 17:03 Blood Culture - Final Blood Assessment and Plan Assessment: Abdominal pain with nausea and vomiting likely secondary to invasive gastric adenocarcinoma 4 cm ulcerated lesion noted on the antrum causing significant pyloric stenosis with gastric outlet obstruction as found on EGD multiple hypodense lesions noted throughout the liver most consistent with metastasis, status post biopsy and pending results Nausea/vomiting/diarrhea, acute gastritis, status post EGD revealing a 4 cm ulcerated lesion causing significant pyloric stenosis, gastric biopsy positive for invasive History of chronic A-fib, was on Coumadin, although will hold and okay to resume Coumadin starting 11/01/2024 per surgery Hypertension Continued ongoing nicotine dependence Chronic daily alcohol use, last drink approximately 1.5 weeks prior to hospitalization Acute kidney injury, ATN, likely secondary to nausea, vomiting, diarrhea, improved Diarrhea, ruled out C. difficile, no further episodes of diarrhea elevated LFTs and total bilirubin, likely secondary to chronic alcohol use Known right pulmonary nodule with no outpatient follow-up, noted again on CT History of hyperlipidemia Severe protein calorie malnutrition, currently maintained on TPN Plan: Patient on Cardizem drip Continue TPN General Surgery following and possible use loose PEG tube tomorrow Continue IV Protonix Continue with antihypertensive medication Warfarin pharmacy to dose Start gentle hydration with D5 half-normal saline Pain management Cardiology and heme-onc consult Resume home medication GI and DVT prophylaxis Prognosis is guarded
[2024-11-01 11:56] LABS: Glucose,Whole Blood 175 mg/dL (70-110)
--- NOTE | 2024-11-01 14:31 | P.PN ---
Subjective Progress Note Date: 11/01/24 CHIEF COMPLAINT: Intractable nausea and vomiting HISTORY OF PRESENT ILLNESS: The patient is a 74-year-old male being seen for intractable nausea and vomiting. Recent liver biopsy returned as poorly diff erentiated metastatic adenocarcinoma from GI source. Patient is status post open gastrostomy tube placement. Patient has been seen by oncology now requesting a port placement. Patient at this time pending start of tube feeds. He does report appropriate soreness at gastrostomy tube site ROS: No fevers or chills. No new chest pain. PHYSICAL EXAM: VITAL SIGNS: Reviewed CONSTITUTIONAL: Well developed and in no acute distress. EYES: Conjuctivae without sclera icterus. Extraocular movements grossly intact. HEAD, EARS, NOSE, THROAT: Moist buccal mucosa. Head is atraumatic, normocephalic. Hears conversational speech. No nasal drainage. RESPIRATORY: Non-labored respirations and equal bilateral excursions. CARDIOVASCULAR: Palpable 2+ radial pulses. ABDOMEN: Minimal tenderness at gastrostomy tube site. Dressing intact with dried shadowing 2 cm. No cellulitis of the abdomen. MUSCULOSKELETAL: No gross deformity of the lower extremities noted. No clubbing. No cyanosis. SKIN: Good skin turgor. Well perfused. NEUROLOGIC: Cranial nerves II through XII grossly intact. No focal or lateralizing signs. PSYCH: Appropriate affect. Alert and oriented to person CLINICAL LABS: Reviewed. WBC down to 15,000 14,000. Sodium up from 129-136 PATHOLOGY: poorly differentiated metastatic adenocarcinoma from GI source ASSESSMENT: 1. Intractable nausea and vomiting 2. Abnormal CT scan with multiple metastatic disease 3. Metastatic disease of poorly differentiated adenocarcinoma from upper GI source 4. Inadequate protein intake with moderate to severe protein malnutrition 5. Hyponatremia PLAN: 1. Per request of oncology team, port placement for chemotherapy is being req uested. Please hold blood thinners at this time for port placement 2. May start tube feeds as scheduled for tomorrow 3. Hold Coumadin until after port placement Objective - Vital Signs Vital signs: Vital Signs Temp 98.3 F 11/01/24 11:45 Pulse 114 H 11/01/24 11:45 Resp 20 11/01/24 11:45 BP 185/95 11/01/24 11:45 Pulse Ox 93 L 11/01/24 11:45 FiO2 Intake & Output 10/31/24 11/01/24 11/01/24 18:59 06:59 18:59 Intake Total 0 125 75.833 Output Total 1300 625 Balance -1300 125 -549.167 Weight 67.1 kg 66.8 kg Intake: Intake, IV Titration 125 75.833 Amount Diltiazem 125 mg In 75.833 Sodium Chloride 0.9% 100 ml @ 10 MG/HR 10 mls/hr IV .[id number] [facility] Rx#: [id number] Diltiazem 125 mg In 125 Sodium Chloride 0.9% 100 ml @ 5 MG/HR 5 mls/hr IV .Q24H [facility] Rx#:[id number] Oral 0 Output: Urine 1300 625 Other: Voiding Method Indwelling Catheter # Bowel Movements 0 - Labs CBC & Chem 7: 11/01/24 06:35 11/01/24 06:35 Labs: Abnormal Lab Results - Last 24 Hours (Table) 10/31/24 10/31/24 10/31/24 Range/Units 06:30 16:53 20:00 WBC (3.8-10.6) k/uL RBC (4.30-5.90) m/uL Hgb (13.0-17.5) gm/dL Hct (39.0-53.0) % MCHC (31.0-37.0) g/dL Neutrophils # (1.3-7.7) k/uL Monocytes # (0-1.0) k/uL Sodium (137-145) mmol/L BUN (9-20) mg/dL Glucose (74-99) mg/dL POC Glucose (mg/dL) 193 H 202 H (70-110) mg/dL Calcium (8.4-10.2) mg/dL Magnesium (1.6-2.3) mg/dL Triglycerides 202.00 H (0.00-149.00) mg/dL 11/01/24 11/01/24 11/01/24 Range/Units 00:15 06:10 06:35 WBC 14.4 H (3.8-10.6) k/uL RBC 3.32 L (4.30-5.90) m/uL Hgb 9.8 L (13.0-17.5) gm/dL Hct 31.8 L (39.0-53.0) % MCHC 30.8 L (31.0-37.0) g/dL Neutrophils # 11.7 H (1.3-7.7) k/uL Monocytes # 1.3 H (0-1.0) k/uL Sodium (137-145) mmol/L BUN (9-20) mg/dL Glucose (74-99) mg/dL POC Glucose (mg/dL) 176 H 146 H (70-110) mg/dL Calcium (8.4-10.2) mg/dL Magnesium (1.6-2.3) mg/dL Triglycerides (0.00-149.00) mg/dL 11/01/24 11/01/24 Range/Units 06:35 11:54 WBC (3.8-10.6) k/uL RBC (4.30-5.90) m/uL Hgb (13.0-17.5) gm/dL Hct (39.0-53.0) % MCHC (31.0-37.0) g/dL Neutrophils # (1.3-7.7) k/uL Monocytes # (0-1.0) k/uL Sodium 136 L (137-145) mmol/L BUN 28 H (9-20) mg/dL Glucose 151 H (74-99) mg/dL POC Glucose (mg/dL) 175 H (70-110) mg/dL Calcium 8.3 L (8.4-10.2) mg/dL Magnesium 2.9 H (1.6-2.3) mg/dL Triglycerides (0.00-149.00) mg/dL Microbiology - Last 24 Hours (Table) 10/26/24 17:03 Blood Culture - Final Blood
[2024-11-01 17:50] LABS: Glucose,Whole Blood 178 mg/dL (70-110)
[2024-11-01] MEDS ORDERED: WARFARIN 7.5 MG TAB PO ONE (18:00)
[2024-11-01 23:30] LABS: Glucose,Whole Blood 159 mg/dL (70-110)
--- NOTE | 2024-11-02 03:16 | XR ---
EXAM: XR Chest, 1 View CLINICAL HISTORY: ITS.REASON XR Reason: desatting TECHNIQUE: Frontal view of the chest. COMPARISON: 10/26/2024. FINDINGS: Lungs: Patchy consolidation bilaterally most suggestive of multifocal pneumonia. Differential etiologies include pulmonary edema. Pleural space: Unremarkable. No pneumothorax. Heart: Cardiomegaly. Mediastinum: Unremarkable. Normal mediastinal contour. Bones/joints: Unremarkable. No acute fracture. Vasculature: Atherosclerotic disease. Upper abdomen: Elevation of the right hemidiaphragm. Other findings: There is hypoaeration. IMPRESSION: 1. Cardiomegaly. 2. Multifocal pneumonia versus pulmonary edema. Clinical correlation is advised. The findings are nonspecific.
[2024-11-02 05:32] LABS: Glucose,Whole Blood 162 mg/dL (70-110)
--- NOTE | 2024-11-02 06:31 | CA ---
Transthoracic Echo Report Name: Bryon Smyth Age: 74 Gender: M : 1950 Exam Date: 11/01/2024 14:38 Exam Location: [facility] Ht (in): 65 Wt (lb): 159 Ordering Physician: Marilynn Ray Attending/Referring Phys: [id number], Cory [employer]el[employer]isher Ariella Corona RDCS Procedure CPT: Indications: LVF, afib Cardiac Hx: Technical Quality: Fair Contrast 1: Total Dose (mL): Contrast 2: Total Dose (mL): MEASUREMENTS (Male / Female) Normal Values 2D ECHO LV Diastolic Diameter PLAX 3.8 cm 4.2 - 5.9 / 3.9 - 5.3 cm LV Systolic Diameter PLAX 2.4 cm IVS Diastolic Thickness 1.3 cm 0.6 - 1.0 / 0.6 - 0.9 cm LVPW Diastolic Thickness 1.1 cm 0.6 - 1.0 / 0.6 - 0.9 cm LV Relative Wall Thickness 0.6 RV Internal Dim ED PLAX 2.7 cm LVOT Diameter 2.0 cm LV Diastolic Volume MOD BP 67.0 cm??? 67 - 155 / 56 - 104 cm??? LV Systolic Volume MOD BP 32.6 cm??? 22 - 58 / 19 - 49 cm??? LV Ejection Fraction MOD BP 51.4 % >= 55 % LV Cardiac Index MOD BP 1913.5 cm???/min???m??? LV Diastolic Volume MOD 4C 52.4 cm??? LV Systolic Volume MOD 4C 37.3 cm??? LV Ejection Fraction MOD 4C 28.7 % LV Cardiac Index MOD 4C 837.3 cm???/min???m??? LV Diastolic Length 4C 6.1 cm LV Systolic Length 4C 6.2 cm LV Diastolic Volume MOD 2C 75.4 cm??? LV Systolic Volume MOD 2C 28.2 cm??? LV Ejection Fraction MOD 2C 62.7 % LV Cardiac Index MOD 2C 2630.6 cm???/min???m??? LV Diastolic Length 2C 7.0 cm LV Systolic Length 2C 6.1 cm LA Volume 61.2 cm??? 18 - 58 / 22 - 52 cm??? LA Volume Index 33.3 cm???/m??? 16 - 28 cm???/m??? M-MODE Aortic Root Diameter MM 3.1 cm LA Systolic Diameter MM 5.9 cm LA Ao Ratio MM 1.9 AV Cusp Separation MM 1.1 cm DOPPLER AV Peak Velocity 191.5 cm/s AV Peak Gradient 14.7 mmHg AV Mean Velocity 137.9 cm/s AV Mean Gradient 8.1 mmHg AV Velocity Time Integral 31.0 cm LVOT Peak Velocity 84.9 cm/s LVOT Peak Gradient 2.9 mmHg LVOT Velocity Time Integral 14.3 cm LVOT Stroke Volume 43.6 cm??? LVOT Stroke Volume Index 24.3 ml/m??? LVOT Cardiac Index 2427.8 cm???/min???m??? AV Area Cont Eq vti 1.4 cm??? AV Area Cont Eq pk 1.4 cm??? MV Area PHT 4.6 cm??? Mitral E Point Velocity 134.5 cm/s Mitral A Point Velocity 0.6 cm/s Mitral E to A Ratio 220.2 MV Deceleration Time 164.4 ms TR Peak Velocity 268.5 cm/s TR Peak Gradient 28.8 mmHg FINDINGS Left Ventricle Left ventricular ejection fraction is estimated at 50-55 %. Mild concentric LVH. Tachycardic. Right Ventricle Normal right ventricular size and function. Right ventricular systolic pressure within normal limits. Right Atrium Normal right atrial size. Left Atrium Moderate left atrial dilatation. Mitral Valve Structurally normal mitral valve. Mild mitral regurgitation. Aortic Valve Trileaflet aortic valve. Mild aortic stenosis with a peak gradient of 15 mmHg and a mean gradient of 8.1mmHg. No aortic regurgitation. Tricuspid Valve Structurally normal tricuspid valve. Mild tricuspid regurgitation. Pulmonic Valve Structurally normal pulmonic valve. Pericardium No pericardial effusion. Aorta Normal size aortic root and proximal ascending aorta. CONCLUSIONS LVEF 50 to 55% Tachycardic rhythm Mild concentric LVH No obvious regional wall motion abnormality Thickened calcified aortic valve leaflets with mild aortic stenosis, Mild mitral regurgitation Mild tricuspid regurgitation Moderate left atrial dilatation Previewed by: Dr Ambrosio Gtz (Electronically Signed) Final Date: 02 November 2024 06:30
[2024-11-02 08:07] LABS: INR 1.1 (<1.2); Prothrombin Time 11.8 sec (10.0-12.5)
[2024-11-02 08:07] LABS: African American GFR (CKD) >90 (>60 ml/min/1.73 sqM); Anion Gap 5 mmol/L; Blood Urea Nitrogen 27 mg/dL (9-20); Calcium 8.2 mg/dL (8.4-10.2); Carbon Dioxide 27 mmol/L (22-30); Chloride 105 mmol/L (98-107); Glucose 155 mg/dL (74-99); Magnesium 2.2 mg/dL (1.6-2.3); Non-African American GFR(CKD) >90 (>60 ml/min/1.73 sqM); Potassium 4.9 mmol/L (3.5-5.1); Sodium 137 mmol/L (137-145)
[2024-11-02 08:14] LABS: NT-Pro-B-Type Natriuretic Pept 1910 pg/mL
[2024-11-02] MEDS ORDERED: HEPARIN SODIUM 1,000 UN/ML (10ML VL) IV PRN (09:33)
[2024-11-02] MEDS: HEPARIN SODIUM 1,000 UN/ML (10ML VL) IV ONE (10:33)
[2024-11-02] MEDS: HEPARIN SOD,PORK IN 0.45% NACL 25,000 UNIT in 0.45% NACL 1 250ML.BAG IV SCH (10:34)
[2024-11-02] MEDS ORDERED: IPRATROPIUM-ALBUTEROL 3 ML NEB INHALATION PRN (11:00)
--- NOTE | 2024-11-02 11:06 | P.PN ---
Subjective This is a pleasant 74-year-old male who presented to the emergency department with intense abdominal pain along with nausea and vomiting being closely monitored. Patient reports he follows with Dr. Damion Candelario' WINSTON Kelly at the [facility] in [place] with a past medical history of chronic A-fib, nicotine dependence, alcoholic cirrhosis, right pulmonary nodule, daily alcohol use and obesity. Patient denies any other illicit drug use and reports has not had a drink in over a week and a half as he has not been feeling well. Per family patient has not been eating the greatest and has been having excessive nausea and vomiting. Patient also was noted to have multiple episodes of diarrhea which has since resolved. Patient was admitted after undergoing CT abdomen which shows innumerable hypodense lesions throughout the liver most c onsistent with metastasis from an unknown primary malignancy, additionally there is surface nodularity of the liver which could be due to hepatic cirrhosis versus pseudocirrhosis from the lesions, and an enlarged right lower lobe 1.1 cm nodule concerning for metastasis as well as circumferential wall thickening of the gastric antrum which could represent malignancy versus gastritis along with scattered colonic diverticula without evidence of acute diverticulitis. Labs reveal a normal white count of 10.4, hemoglobin 14.4, platelets 249, sodium 132, potassium 4.0, BUN 14 and creatinine 1.23. Total bili is 1.6 with an AST of 149 and ALT is 46 urinalysis was negative, and influenza, RSV, COVID were all negative as well. Patient was started on gentle hydration along with supportive care and pain management with a consult to GI as well as oncology and interventional radiology for possible biopsy. 10/22/2024 Patient is seen in follow-up today with oncology and GI following. Patient unable to tolerate the GoLytely bowel prep and will be undergoing EGD for further evaluation. Patient is currently n.p.o. although requesting a diet and advance in diet as he feels hungry. Patient has had no further bowel movements, highly unlikely for C. difficile. Patient is also scheduled for biopsy with interventional radiology although patient had been taking Coumadin and will need to wait until Sunday to perform this. Patient is afebrile denies any further abdominal pain and denies any chest pain other than intermittently. Patient reports to feeling epigastric discomfort that resolves. 10/23/2024 Patient is seen in follow-up today with multiple consultations following. Patient is status post EGD maintained on clear liquids. Coumadin is on hold patient is scheduled to undergo biopsy of the liver with interventional radiology tomorrow. General surgery consulted in the event patient will need a J-tube placement for oral intake per recommendations of GI. Patient will be scheduled for PICC line and possible TPN initiation while awaiting biopsies reports. Patient is afebrile and denies any chest pain or shortness of breath. Patient reports to feeling improved with some pain although is currently managed on current regimen. Patient did have an episode of nausea but will continue supportive care. 10/24/2024 Patient is seen in follow-up today currently vomiting is daughter reports he does drink a whole glass of water. Patient to be n.p.o. except occasional sips with medicines and ice chips this patient is not tolerating much oral intake. TPN being initiated and patient does have a PICC line. Patient is status post biopsy of the liver which is pending and pathology from EGD remains pending as well. G-tube placement per general surgery is on hold while awaiting path results. Patient is afebrile reports some mild abdominal pain with no reports of chest pain or shortness of breath. Patient reports has been getting up and getting to the bathroom with no difficulties. 10/25/2024 Patient is seen in follow-up today with the inability to tolerate very much oral intake due to abdominal pain. Per nursing staff patient was reporting abdominal pain and upper right quadrant pain although family was reporting he was having chest pain and EKG was done showing atrial fibrillation and also other family members have been in and out of the room multiple times and were reported to have influenza. Cepheid including COVID, influenza, RSV are negative. Patient should just be occasional ice chips and sips of water with medicines otherwise n.p.o. and patient is continued on TPN. Continuing to await for biopsy results. 10/26/2024 Patient is seen in follow-up today currently maintained on TPN continuing to await biopsy results. Patient is status post liver biopsy as well as multiple biopsies that were taking on EGD. Patient seen in follow-up today with multiple family members at bedside. Patient reports feeling okay currently not eating or drinking much. Patient is having few sips with medications. Patient did note to having increased abdominal pain but denies any vomiting, continues with intermittent nausea. Patient denies any further bowel movement and is continued on TPN. General surgery following with no plans of immediate intervention and awaiting pathology reports from biopsies to determine treatment plan moving forward. Unsure if patient will be receiving G-tube. Patient did have a low- grade temp today. Per patient family, they may have noticed some blood in the urine. Hemoglobin is stable and will monitor closely. Likely secondary to resuming Coumadin and maintained on heparin. Until INR is therapeutic 10/27/2024 Patient is seen in follow-up today and had a brief conversation with general surgery. Plan is for holding Coumadin and continuing with Lovenox and/or heparin for now and surgical intervention on , 10/30/2024. Gastric biopsy positive for gastric adenocarcinoma. Patient continues to be n.p.o. except for ice chips. Will continue subcutaneous heparin for now and will hold night before surgery tentatively scheduled for . Sodium 127 today and potassium 3.4. Patient continues on TPN and pharmacy with dietary to adjust formula. 10/28/2024 Patient is seen and evaluated in follow-up today multiple consultations following and plan is for surgery on due to gastric adenocarcinoma. Per surgery, they will proceed with G-tube placement for nutrition and no plans for surgery as it is contraindicated. Radiation oncology following as well and discussed palliative treatment and patient and family are agreeable. Patient having occasional low-grade temps and multiple testings were negative for any acute infectious process including virology testing repeated which was negative. Patient continues to have some abdominal discomfort and reports no further bowel movements at this time. 10/29/2024 Patient is seen in follow-up today with multiple family members at the bedside. Patient is currently n.p.o. except occasional sips of water for medications and ice chips. Currently continued on TPN making adjustments and sodium slightly improved. White count is mildly elevated although trending down and will follow-up on repeat labs. Patient being followed by multiple consultations inc luding oncology, radiation oncology and general surgery. Plan is for open jejunostomy tube placement with surgery on 10/30/2024. Radiation oncology planning on palliative radiation to help alleviate symptoms of the pyloric stenosis secondary to gastric tumor. 10/30/2024 Evaluated in follow-up currently n.p.o. for surgery and will be going for a J- tube placement early this morning. Work today reveals a white blood cell count of 12.6, hemoglobin 9.9, sodium level of 132, BUN of 23 creatinine of 0.84. His LFTs remain elevated with an AST of 228 ALT of 75 alk phos of 145. He is on room air with oxygen saturations of 97%. Recommendations to follow after surgery. 10/31/2024 Patient is seen in follow-up with multiple consultations following. Patient continues on Cardizem drip and has been instructed to hold Coumadin for another 24 hours per surgery and will resume starting tomorrow. Patient is status post J-tube placement and will be able to use starting Sunday per surgery. Continue with current regimen with multiple consultations following including oncology, radiation oncology, general surgery, cardiology. Patient continues to report abdominal pain at the G-tube site as well although appears clean dry and intact and currently taped until being used. 11/01 Patient awake alert looks uncomfortable because of dehydration and dry mouth complaining from abdominal pain in the epigastric area about 7-8/10 in severity, no vomiting. He is getting TPN He status post jejunostomy for his invasive stomach cancer, is expected to use his jejunostomy tube tomorrow He is continued on Cardizem drip, TPN, IV Protonix, and warfarin for his mechanical valve and is going to get 7.5 mg today Other than his WBC is 14.4, stable, hemoglobin 9.8, liver enzymes were slightly elevated. No more fever over the last week. He is mildly tachycardic We will add small IV hydration D5 half-normal saline at 40 mL for a few hours 11/02 Patient is developing shortness of breath today. And his oxygen requirements went to 60 L/min. He is awake and alert, complaining from pain in his left side of the abdomen with some tenderness. He feels thirsty. He denies chest pain. He is little short of breath/tachypneic. He has no fever. Still mildly tachycardic with heart rate about 104. Labs showing elevated D-dimer at 18.17. BMP is within the reference range. proBNP is 1910. Chest x-ray: Cardiomegaly showing multifocal pneumonia versus pulmonary edema. Procalcitonin is ordered. CT of the chest and abdomen and pelvis with IV contrast is requested. Patient currently getting TPN, IV Protonix, warfarin could not be given because feeding tube is not started yet therefore going to start him on heparin drip especially in view of elevated D-dimer. Also he is on Cardizem drip Active Medications Generic Name Dose Route Start Last Admin Trade Name Maged PRN Reason Stop Dose Admin Acetaminophen 650 mg 10/20/24 15:00 Acetaminophen Tab 325 Mg Tab PO Q6HR PRN Mild Pain or Fever > 100.5 Hydrocodone Bitart/Acetaminophen 10 ml 10/28/24 13:29 10/29/24 13:08 Hydrocodone/Apap 15 Ml Solution PO 10 ml Q4H PRN Administration Moderate Pain (Scale 4 to 6) Albuterol/Ipratropium 3 ml 11/02/24 12:00 Ipratropium-Albuterol 3 Ml Neb INHALATION RT-QID MEKA Albuterol/Ipratropium 3 ml 11/02/24 11:00 Ipratropium-Albuterol 3 Ml Neb INHALATION RT-Q2H PRN Shortness Of Breath Or Wheezing Budesonide/Formoterol Fumarate 2 puff 11/02/24 20:00 Symbicort 160-4.5 Mcg Inhaler INHALATION RT-BID MEKA Heparin Sodium (Porcine) 0 unit 11/02/24 09:33 Heparin Sodium 1,000 Un/Ml (10ml Vl) IV PER PROTOCOL PRN Low PTT Protocol Hydromorphone HCl 1 mg 10/30/24 11:43 11/02/24 08:34 Hydromorphone 1 Mg/Ml 1 Ml Syringe IVP 1 mg Q3HR PRN Administration Severe pain or NPO Fat Emulsion Intravenous 250 250 mls @ 21 mls/hr 10/30/24 21:00 10/30/24 21:01 ml/ IV Solution IV 21 mls/hr Q72H MEKA Administration Lactated Ringer's 1,000 mls @ 20 mls/hr 10/30/24 17:53 11/01/24 15:42 Lactated Ringers IV Not Given .Q24H MEKA Parenteral Vitamin Supplement 1,073 mls @ 85 mls/hr 10/31/24 21:00 11/01/24 21:48 10 ml/ Zinc/Copper/Manganese/ IV 85 mls/hr Selenium 1 ml/ Sodium Chloride .BY DURATION MEKA Administration 68 meq/ Sodium Acetate 40 meq / Potassium Acetate 30 meq/ Calcium Gluconate 1 gm/ Amino Acids/Dextrose Sodium Chloride 68 meq/ Sodium 1,062 mls @ 85 mls/hr 10/31/24 21:00 11/02/24 10:41 Acetate 40 meq/ Potassium IV 85 mls/hr Acetate 30 meq/ Calcium .BY DURATION MEKA Administration Gluconate 1 gm/ Amino Acids/ Dextrose Diltiazem HCl 125 mg/ Sodium 125 mls @ 10 mls/hr 10/31/24 22:45 11/02/24 05:35 Chloride IV 10 mg/hr .[id number] MEKA 10 mls/hr Administration 10 MG/HR Heparin Sodium/Sodium Chloride 250 mls @ 11.736 mls/hr 11/02/24 09:45 11/02/24 10:34 25,000 unit/ Sodium Chloride IV 18 units/kg/hr .[id number] MEKA 11.736 mls/hr Administration Protocol 18 UNITS/KG/HR Insulin Human Lispro 0 unit 10/31/24 18:00 11/02/24 05:36 Insulin Lispro (Humalog) 100 Unit/Ml 10 Ml Vl SQ 1 unit Q6HR [facility] Administration Protocol Metoprolol Tartrate 50 mg 10/20/24 15:00 11/02/24 08:24 Metoprolol Tartrate 50 Mg Tab PO Not Given BID@0700,1500 [facility] Miscellaneous Information 1 each 10/25/24 06:07 Potassium Replacement Protocol 1 Each Misc MISCELLANE DAILY PRN Per Protocol Protocol Naloxone HCl 0.2 mg 10/20/24 15:00 Naloxone 0.4 Mg/Ml 1 Ml Vial IV Q2M PRN Opioid Reversal Ondansetron HCl 4 mg 10/26/24 10:24 10/30/24 09:15 Ondansetron 4 Mg/2 Ml Vial IVP 4 mg Q6H PRN Administration Nausea And Vomiting Pantoprazole Sodium 40 mg 10/26/24 09:00 11/02/24 08:28 Pantoprazole 40 Mg/10 Ml Vial IVP 40 mg BID [facility] Administration Quetiapine Fumarate 12.5 mg 10/26/24 21:00 11/01/24 20:09 Quetiapine 25 Mg Tab PO Not Given [facility] Objective - Vital Signs Vital signs: Vital Signs Temp 97.7 F 11/01/24 23:29 Pulse 104 H 11/02/24 07:51 Resp 24 11/02/24 07:51 BP 160/78 11/02/24 07:30 Pulse Ox 95 11/02/24 07:51 FiO2 69 11/02/24 07:51 Intake & Output 11/01/24 11/02/24 11/02/24 17:59 06:59 18:59 Intake Total Output Total Balance Weight Intake: IV Diltiazem 125 mg In Sodium Chloride 0.9% 100 ml @ 10 MG/HR 10 mls/hr IV .[id number] [facility]KA Rx#: [id number] Intake, IV Titration Amount Dextrose 5%-0.45% NaCl 1, 000 ml @ 40 mls/hr IV . Q24H [facility] Rx#:[id number] Diltiazem 125 mg In Sodium Chloride 0.9% 100 ml @ 10 MG/HR 10 mls/hr IV .[id number] [facility]KA Rx#: [id number] Mvi, Adult No.4 with Vit K 10 ml Trace (Conc-1Ml/ Dose) 1 ml Sodium Chloride 4Meq/ml Vial 68 meq Sodium Acetate 40 meq Potassium Acetate 30 meq Calcium Gluconate 1 gm In Amino Acids 5 %/ Dextrose 20 % 1,000 ml @ 85 mls/hr IV .BY DURATION [facility] Rx#:[id number] Sodium Chloride 4Meq/ml Vial 68 meq Sodium Acetate 40 meq Potassium Acetate 30 meq Calcium Gluconate 1 gm In Amino Acids 5 %/Dextrose 20 % 1 ,000 ml @ 85 mls/hr IV . BY DURATION [facility] Rx#: [id number] Output: Urine Other: Voiding Method Indwelling Catheter - Exam GENERAL: The patient is alert and oriented x3, not in any acute distress. Well developed, well nourished. HEENT: Pupils are round and equally reacting to light. EOMI. No scleral icterus. No conjunctival pallor. Normocephalic, atraumatic. No pharyngeal erythema. No thyromegaly. -CARDIOVASCULAR: S1 and S2 present. No murmurs, rubs, or gallops. He is on Airvo PULMONARY: Chest is clear to auscultation, no wheezing , no crackles. Epigastric tenderness -ABDOMEN: Soft, epigastric and left side tenderness ,nondistended, normoactive bowel sounds. No palpable organomegaly. MUSCULOSKELETAL: No joint swelling or deformity. EXTREMITIES: No cyanosis, clubbing, or pedal edema. NEUROLOGICAL: Gross neurological examination did not reveal any focal deficits. SKIN: No rashes. no petechiae. - Labs CBC & Chem 7: 11/01/24 06:35 11/02/24 07:17 Labs: Abnormal Lab Results - Last 24 Hours (Table) 11/01/24 11/01/24 11/01/24 Range/Units 11:54 17:49 23:29 D-Dimer (<0.60) mg/L FEU BUN (9-20) mg/dL Glucose (74-99) mg/dL POC Glucose (mg/dL) 175 H 178 H 159 H (70-110) mg/dL Calcium (8.4-10.2) mg/dL 11/02/24 11/02/24 11/02/24 Range/Units 05:31 07:17 07:39 D-Dimer 18.17 H (<0.60) mg/L FEU BUN 27 H (9-20) mg/dL Glucose 155 H (74-99) mg/dL POC Glucose (mg/dL) 162 H (70-110) mg/dL Calcium 8.2 L (8.4-10.2) mg/dL Assessment and Plan Assessment: Acute hypoxic respiratory failure Acute bilateral pulmonary infiltrates suspicious for CHF versus pneumonia. proBNP is mildly elevated 1910. Pro- Calcitonin pending. Elevated D-dimer, rule out PE Abdominal pain with nausea and vomiting likely secondary to invasive gastric adenocarcinoma 4 cm ulcerated lesion noted on the antrum causing significant pyloric stenosis with gastric outlet obstruction as found on EGD multiple hypodense lesions noted throughout the liver most consistent with metastasis, status post biopsy and pending results Nausea/vomiting/diarrhea, acute gastritis, status post EGD revealing a 4 cm ulcerated lesion causing significant pyloric stenosis, gastric biopsy positive for invasive History of chronic A-fib, was on Coumadin, although will hold and okay to resume Coumadin starting 11/01/2024 per surgery Hypertension Continued ongoing nicotine dependence Chronic daily alcohol use, last drink approximately 1.5 weeks prior to hospitalization Acute kidney injury, ATN, likely secondary to nausea, vomiting, diarrhea, improved Diarrhea, ruled out C. difficile, no further episodes of diarrhea elevated LFTs and total bilirubin, likely secondary to chronic alcohol use Known right pulmonary nodule with no outpatient follow-up, noted again on CT History of hyperlipidemia Severe protein calorie malnutrition, currently maintained on TPN Plan: Continue with oxygen Continue breathing treatment Check pro- Calcitonin Continue with heparin drip and rule out PE Ordered CTA of the chest to rule out PE as well as CT of the abdomen pelvis with IV contrast Patient on Cardizem drip Continue TPN General Surgery following and possible use of PEG tube Continue IV Protonix Continue with antihypertensive medication Warfarin pharmacy to dose Start gentle hydration with D5 half-normal saline Pain management Cardiology and heme-onc consult Resume home medication GI and DVT prophylaxis Prognosis is guarded
[2024-11-02] MEDS: FUROSEMIDE 10 MG/ML 4 ML VIAL IV STA (11:08)
[2024-11-02] MEDS: IPRATROPIUM-ALBUTEROL 3 ML NEB INHALATION SCH (11:30)
[2024-11-02 11:45] LABS: Basophils % (A) 0 %; Eosinophils # (A) 0.1 k/uL (0-0.7); Eosinophils % (A) 0 %; HGB 9.8 gm/dL (13.0-17.5); Hypochromasia Moderate; Lymphocytes # (A) 1.5 k/uL (1.0-4.8); Lymphocytes % (A) 7 %; MCH 28.9 pg (25.0-35.0); MCHC 29.8 g/dL (31.0-37.0); MCV 96.9 fL (80.0-100.0); Monocytes % (A) 5 %; Neutrophils # (A) 18.4 k/uL (1.3-7.7); Neutrophils % (A) 87 %; Platelet Count 297 k/uL (150-450); RDW 13.7 % (11.5-15.5); WBC 21.2 k/uL (3.8-10.6)
[2024-11-02 11:54] LABS: INR 1.2 (<1.2); Partial Thromboplastin Time 71.6 sec (22.0-30.0); Prothrombin Time 12.6 sec (10.0-12.5)
--- NOTE | 2024-11-02 11:57 | P.PN ---
Subjective Progress Note Date: 11/02/24 Principal diagnosis: Metastatic gastric adenocarcinoma -Acute hypoxia developing overnight requiring 15 L of high flow nasal cannula along with tachycardia with heart rate as high as 143 -Clinically, he denies any dyspnea, but notes distention of the abdomen that is tender to minimal palpation Objective - Vital Signs Vital signs: Vital Signs Temp 97.7 F 11/01/24 23:29 Pulse 102 H 11/02/24 11:36 Resp 24 11/02/24 07:51 BP 160/78 11/02/24 07:30 Pulse Ox 95 11/02/24 07:51 FiO2 90 11/02/24 11:39 Intake & Output 11/01/24 11/02/24 11/02/24 17:59 06:59 18:59 Intake Total Output Total Balance Weight Intake: IV Diltiazem 125 mg In Sodium Chloride 0.9% 100 ml @ 10 MG/HR 10 mls/hr IV .[id number] [facility] Rx#: [id number] Intake, IV Titration Amount Dextrose 5%-0.45% NaCl 1, 000 ml @ 40 mls/hr IV . Q24H [facility] Rx#:[id number] Diltiazem 125 mg In Sodium Chloride 0.9% 100 ml @ 10 MG/HR 10 mls/hr IV .[id number] MEKA Rx#: [id number] Mvi, Adult No.4 with Vit K 10 ml Trace (Conc-1Ml/ Dose) 1 ml Sodium Chloride 4Meq/ml Vial 68 meq Sodium Acetate 40 meq Potassium Acetate 30 meq Calcium Gluconate 1 gm In Amino Acids 5 %/ Dextrose 20 % 1,000 ml @ 85 mls/hr IV .BY DURATION [facility]KA Rx#:[id number] Sodium Chloride 4Meq/ml Vial 68 meq Sodium Acetate 40 meq Potassium Acetate 30 meq Calcium Gluconate 1 gm In Amino Acids 5 %/Dextrose 20 % 1 ,000 ml @ 85 mls/hr IV . BY DURATION MEKA Rx#: [id number] Output: Urine Other: Voiding Method Indwelling Catheter - Constitutional General appearance: Present: cooperative, mild distress - EENT Eyes: Present: EOMI - Respiratory Respiratory: left: other (Crackles appreciated in the left lung base) - Cardiovascular Rhythm: irregularly irregular - Gastrointestinal General gastrointestinal: Present: absent bowel sounds, distended Localized gastrointestinal: tender: diffuse (Out of proportion with minimal palpation) - Neurologic Neurologic: Present: CNII-XII intact. Absent: focal deficits - Labs CBC & Chem 7: 11/02/24 11:18 11/02/24 07:17 Labs: Abnormal Lab Results - Last 24 Hours (Table) 11/01/24 11/01/24 11/01/24 Range/Units 11:54 17:49 23:29 WBC (3.8-10.6) k/uL RBC (4.30-5.90) m/uL Hgb (13.0-17.5) gm/dL Hct (39.0-53.0) % MCHC (31.0-37.0) g/dL Neutrophils # (1.3-7.7) k/uL D-Dimer (<0.60) mg/L FEU BUN (9-20) mg/dL Glucose (74-99) mg/dL POC Glucose (mg/dL) 175 H 178 H 159 H (70-110) mg/dL Calcium (8.4-10.2) mg/dL 11/02/24 11/02/24 11/02/24 Range/Units 05:31 07:17 07:39 WBC (3.8-10.6) k/uL RBC (4.30-5.90) m/uL Hgb (13.0-17.5) gm/dL Hct (39.0-53.0) % MCHC (31.0-37.0) g/dL Neutrophils # (1.3-7.7) k/uL D-Dimer 18.17 H (<0.60) mg/L FEU BUN 27 H (9-20) mg/dL Glucose 155 H (74-99) mg/dL POC Glucose (mg/dL) 162 H (70-110) mg/dL Calcium 8.2 L (8.4-10.2) mg/dL 11/02/24 Range/Units 11:18 WBC 21.2 H (3.8-10.6) k/uL RBC 3.40 L (4.30-5.90) m/uL Hgb 9.8 L (13.0-17.5) gm/dL Hct 33.0 L (39.0-53.0) % MCHC 29.8 L (31.0-37.0) g/dL Neutrophils # 18.4 H (1.3-7.7) k/uL D-Dimer (<0.60) mg/L FEU BUN (9-20) mg/dL Glucose (74-99) mg/dL POC Glucose (mg/dL) (70-110) mg/dL Calcium (8.4-10.2) mg/dL - Imaging and Cardiology Chest x-ray: report reviewed Assessment and Plan (1) Malignant neoplasm of stomach metastatic to liver Current Visit: Yes Status: Acute Code(s): C16.9 - MALIGNANT NEOPLASM OF STOMACH, UNSPECIFIED; C78.7 - SECONDARY MALIG NEOPLASM OF LIVER AND INTRAHEPATIC BILE DUCT SNOMED Code(s): 94986162 (2) Acute hypoxic respiratory failure Current Visit: Yes Status: Acute Code(s): J96.01 - ACUTE RESPIRATORY FAILURE WITH HYPOXIA SNOMED Code(s): 75971317 Plan: Acute hypoxic respiratory failure: -Acute hypoxia developing within the past 24 hours requiring 15 L of high flow nasal cannula from 2 L nasal cannula -Chest x-ray this morning notes multiple infiltrates in both lungs with cardiomegaly concerning for either pneumonia or pulmonary edema -Procalcitonin is pending, but does have elevated BNP of 1910 -Clinically, he denies any fevers, persistent cough, dyspnea or hemoptysis, but he does have distended abdomen with no appreciated bowel sounds and tenderness that is out of proportion -CTA of the chest has been ordered to include abdomen as well to assess for perforation given recent jejunostomy tube that was placed on 10/30/2024 -Defer additional management to the primary and consulting teams Metastatic gastric adenocarcinoma: Patient presented to the emergency room for nausea vomiting and associated decreased oral intake over the last 1 week. He endorses approximate 30 pound weight loss over the last couple weeks, but family is unsure if this is accurate. Family reports patient is a heavy daily drinker, consuming up to a case of beer daily. Patient denies bowel changes, hematochezia and melena and hematemesis -Upon admit CT abdomen and pelvis with contrast showing innumerable hypodense lesions throughout the liver. Additionally there is surface nodularity of the liver which could be due to hepatic cirrhosis versus pseudocirrhosis from the noted lesions. Enlarged right lower lobe 1.1 cm pulmonary nodule. Circumferential wall thickening of the gastric antrum. Scattered colonic diverticuli without evidence of acute diverticulitis. -S/p EGD with 4 cm raised ulcerated lesion in the antrum of the stomach concerning in the pylorus causing pyloric stenosis with gastric outlet obstruction and large amount of retained food in the stomach. -General surgery has been consulted for evaluation for J-tube. TPN has been started, pending pathology -Gastric ulcer pathology positive for invasive gastric adenocarcinoma. Liver biopsy positive for metastatic poorly differentiated adenocarcinoma consistent with upper GI tract primary -Case discussed with Dr. Britton. Recommending palliative RT to gastric tumor causing gastric outlet obstruction -S/p j tube placement, given the acute hypoxia, tube feedings have been held and continues on TPN -[id number] requested on pathology. Will plan for outpt PET CT and guardant 360. Clinic f/u in discharge plan Discussed findings/diagnosis and POC with pt and family. He was agreeable to the same. All questions and concerns were addressed Jacqueline Still MD
[2024-11-02 11:58] LABS: Glucose,Whole Blood 172 mg/dL (70-110)
--- NOTE | 2024-11-02 14:36 | P.CNPUL ---
History of Present Illness Consult date: 11/02/24 Requesting physician: Roger E Rosa Elena Reason for consult: dyspnea, COPD, hypoxemia, pneumonia, abnormal CXR/CT Chief complaint: Increasing oxygen requirements. History of present illness: Pulmonary consult dated November 02, 2024. 74-year-old male who was initially seen in the emergency department, on October 20. He apparently came in with complaints of nausea, vomiting, and diarrhea. For about a week or so prior to admission he was unable to keep anything down. He denied any abdominal pain, fever, constipation, hematemesis, or hematochezia. He did not have any chest complaints, or difficulty breathing. There was no chest pain. He was admitted with a diagnosis of nausea and vomiting and an abnormal CT scan. CT scan at that time, showed innumerable hypodense lesions throughout the liver most consistent with metastasis, from an unknown primary malignancy. There was also an enlarged right lower lobe 1.1 cm pulmonary nodule concerning for metastasis. 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 A liver biopsy, revealed metastatic poorly differentiated adenocarcinoma, consistent with upper GI tract primary. The patient had a feeding tube placed, i.e. open jejunostomy tube. The patient had been doing reasonably well, but more recently, was noted to have increasing oxygen requirements. For that reason, the consult was initiated. The patient is currently on IV heparin, and TPN at 85 cc an hour. In addition, he is on Airvo at 60 L/min with an FiO2 of 90%. He is on Cardizem at 10 mg an hour. The patient's chest x-ray shows diffuse bilateral infiltrates, which could be consistent with pneumonia, and/or fluid overload. For that reason, we add DuoNebs, and Symbicort at usual doses, will check a procalcitonin level, and give the patient Lasix 40 mg IV push. Laboratory data includes a white count 21.2, hemoglobin 9.8, hematocrit 33, and a platelet count of 297,000. PT is 12.6, INR 1.2. PTT is 71.6. D-dimer is 18.17. Sodium 137, potassium 4.9, chlorides 105, CO2 27, BUN 27, and creatinine 0.74. Glucose is 172. Calcium 8.2. N-terminal proBNP is elevated at 1910. Procalcitonin level is pending. Chest x-ray shows cardiomegaly, and diffuse abnormalities, consistent with either pneumonia, and/or CHF. Review of Systems REVIEW OF SYSTEMS: CONSTITUTIONAL: [Negative.] NEUROLOGIC: [ Negative.] HEENT: [ Negative.] CARDIAC: [Negative.] PULMONARY: Increasing shortness of breath, requiring Airvo. GI: [Negative.] : [Negative.] RHEUMATOLOGIC: [ Negative.] IMMUNOLOGIC: [ Negative.] ENDOCRINE: [Negative. ] DERMATOLOGIC: [Negative.] Past Medical History Past Medical History: Atrial Fibrillation, Hyperlipidemia, Hypertension History of Any Multi-Drug Resistant Organisms: None Reported Past Surgical History: No Surgical Hx Reported Additional Past Surgical History / Comment(s): lung Past Anesthesia/Blood Transfusion Reactions: No Reported Reaction Past Psychological History: No Psychological Hx Reported Smoking Status: Current some day smoker Past Alcohol Use History: Occasional Additional Past Alcohol Use History / Comment(s): less than a pack per week. Past Drug Use History: None Reported Additional Drug Use History / Comment(s): weekly alcohol use, pt drinks around 10 drinks when he does drink. Medications and Allergies Home Medications Medication Instructions Recorded Confirmed Type Metoprolol Tartrate [Lopressor] 50 mg PO BID@0700,1500 10/20/24 10/20/24 History Warfarin [Coumadin] 2.5 mg PO DAILY@1500 10/20/24 10/20/24 History Allergies Allergy/AdvReac Type Severity Reaction Status Date / Time No Known Allergies Allergy Verified 10/20/24 15:40 Physical Exam Osteopathic Statement: *. No significant issues noted on an osteopathic structural exam other than those noted in the History and Physical/Consult. Vitals: Vital Signs Temp Pulse Pulse Resp BP BP Pulse Ox 11/02/24 12:45 98.3 F 104 H 24 148/82 91 L 11/02/24 11:49 114 H 11/02/24 11:39 11/02/24 11:36 102 H 11/02/24 07:51 104 H 24 95 11/02/24 07:49 95 11/02/24 07:45 24 97 11/02/24 07:40 32 H 82 L 11/02/24 07:30 129 H 32 H 160/78 81 L 11/02/24 04:07 96 20 146/78 91 L 11/02/24 00:52 24 11/02/24 00:43 103 H 24 87 L 11/02/24 00:38 114 H 28 H 90 L 11/01/24 23:29 97.7 F 106 H 24 156/70 92 L 11/01/24 23:25 24 85 L 11/01/24 20:00 98.3 F 100 20 148/80 91 L 11/01/24 15:57 98.1 F 101 H 20 145/98 92 L FiO2 11/02/24 12:45 90 11/02/24 11:49 11/02/24 11:39 90 11/02/24 11:36 11/02/24 07:51 69 11/02/24 07:49 90 11/02/24 07:45 11/02/24 07:40 11/02/24 07:30 11/02/24 04:07 11/02/24 00:52 11/02/24 00:43 11/02/24 00:38 11/01/24 23:29 11/01/24 23:25 11/01/24 20:00 11/01/24 15:57 Intake and Output 11/01/24 11/02/24 11/02/24 21:59 06:59 14:59 Intake Total Output Total Balance Intake: IV Diltiazem 125 mg In Sodium Chloride 0.9% 100 ml @ 10 MG/HR 10 mls/hr IV .[id number] [facility] Rx#: [id number] Intake, IV Titration Amount Dextrose 5%-0.45% NaCl 1, 000 ml @ 40 mls/hr IV . Q24H [facility] Rx#:[id number] Diltiazem 125 mg In Sodium Chloride 0.9% 100 ml @ 10 MG/HR 10 mls/hr IV .[id number] [facility] Rx#: [id number] Sodium Chloride 4Meq/ml Vial 68 meq Sodium Acetate 40 meq Potassium Acetate 30 meq Calcium Gluconate 1 gm In Amino Acids 5 %/Dextrose 20 % 1 ,000 ml @ 85 mls/hr IV . BY DURATION [facility] Rx#: [id number] Output: Urine Other: Voiding Method Indwelling Catheter Weight No acute distress, oriented 3. The patient is currently on Airvo, at 60 L/min, with an FiO2 of 90%. HEENT examination is grossly unremarkable. Neck supple. Full range of motion. No adenopathy thyromegaly or neck vein distention. Cardiovascular examination reveals an irregular rhythm and rate. S1-S2 normal. No S3 or S4. No discernible murmur noted. Heart sounds are distant. Lungs reveal scattered rhonchi, and bibasilar crackles. No wheezes are noted. Breath sounds are equal bilaterally. Saturations are in the low 90s, on Airvo. Abdomen soft bowel sounds are heard. No masses or tenderness. Extremities are intact. No cyanosis clubbing or edema. Skin is without rash or lesion. Neurologic examination is brief but nonfocal. Results - Laboratory Findings CBC and BMP: 11/02/24 11:18 11/02/24 07:17 PT/INR, D-dimer PT 12.6 sec (10.0-12.5) H 11/02/24 11:18 INR 1.2 (<1.2) H 11/02/24 11:18 D-Dimer 18.17 mg/L FEU (<0.60) H 11/02/24 07:39 Abnormal lab findings: Abnormal Labs 10/20/24 10/20/24 10/20/24 12:43 12:43 12:43 WBC RBC Hgb Hct MCHC Immature Gran # Neutrophils # Lymphocytes # Monocytes # 1.1 H PT INR APTT D-Dimer Sodium 132 L Potassium Chloride 95 L Carbon Dioxide BUN BUN/Creatinine Ratio Glucose 120 H POC Glucose (mg/dL) Plasma Lactic Acid Bryson 2.2 H* Calcium Phosphorus Magnesium Total Bilirubin 1.6 H AST 149 H ALT Alkaline Phosphatase 156 H Total Protein Albumin Albumin/Globulin Ratio Triglycerides Urine Protein Urine Glucose (UA) Urine Blood Urine Mucus 10/21/24 10/21/24 10/22/24 06:00 06:15 04:43 WBC RBC Hgb Hct MCHC Immature Gran # Neutrophils # Lymphocytes # Monocytes # PT 15.3 H INR 1.40 H APTT D-Dimer Sodium 133 L Potassium Chloride Carbon Dioxide BUN 7.4 L BUN/Creatinine Ratio 6.73 L Glucose POC Glucose (mg/dL) Plasma Lactic Acid Bryson Calcium 8.0 L Phosphorus Magnesium Total Bilirubin AST 111 H ALT Alkaline Phosphatase 156 H Total Protein 6.0 L Albumin 3.0 L Albumin/Globulin Ratio 1.00 L Triglycerides Urine Protein Trace H Urine Glucose (UA) Urine Blood Trace H Urine Mucus Rare H 10/23/24 10/23/24 10/24/24 15:02 15:02 03:57 WBC RBC Hgb Hct MCHC Immature Gran # Neutrophils # Lymphocytes # Monocytes # PT 14.1 H INR 1.3 H APTT D-Dimer Sodium 131 L 130 L Potassium Chloride Carbon Dioxide BUN 8 L BUN/Creatinine Ratio Glucose 103 H POC Glucose (mg/dL) Plasma Lactic Acid Bryson Calcium 7.8 L 8.0 L Phosphorus Magnesium Total Bilirubin 1.8 H AST 94 H ALT Alkaline Phosphatase 147 H Total Protein 5.9 L Albumin 2.7 L Albumin/Globulin Ratio Triglycerides Urine Protein Urine Glucose (UA) Urine Blood Urine Mucus 10/25/24 10/26/24 10/26/24 03:05 05:48 07:05 WBC RBC Hgb Hct MCHC Immature Gran # Neutrophils # Lymphocytes # Monocytes # PT INR APTT D-Dimer Sodium 130 L 128 L Potassium 3.4 L Chloride 96 L 96 L Carbon Dioxide BUN 7 L BUN/Creatinine Ratio Glucose 118 H 140 H POC Glucose (mg/dL) 131 H Plasma Lactic Acid Bryson Calcium 8.2 L 8.0 L Phosphorus Magnesium Total Bilirubin AST ALT Alkaline Phosphatase Total Protein Albumin Albumin/Globulin Ratio Triglycerides Urine Protein Urine Glucose (UA) Urine Blood Urine Mucus 10/26/24 10/26/24 10/26/24 07:13 12:08 17:24 WBC RBC Hgb Hct MCHC Immature Gran # Neutrophils # Lymphocytes # Monocytes # PT INR APTT D-Dimer Sodium Potassium Chloride Carbon Dioxide BUN BUN/Creatinine Ratio Glucose POC Glucose (mg/dL) 135 H 151 H 135 H Plasma Lactic Acid Bryson Calcium Phosphorus Magnesium Total Bilirubin AST ALT Alkaline Phosphatase Total Protein Albumin Albumin/Globulin Ratio Triglycerides Urine Protein Urine Glucose (UA) Urine Blood Urine Mucus 10/26/24 10/27/24 10/27/24 20:20 05:27 05:27 WBC 10.58 H RBC 3.56 L Hgb 10.6 L Hct 31.9 L MCHC Immature Gran # 0.05 H Neutrophils # Lymphocytes # Monocytes # 1.77 H PT INR APTT D-Dimer Sodium 127 L Potassium 3.4 L Chloride 95 L Carbon Dioxide BUN BUN/Creatinine Ratio Glucose 157 H POC Glucose (mg/dL) 125 H Plasma Lactic Acid Bryson Calcium Phosphorus Magnesium Total Bilirubin 2.0 H AST 194 H ALT 52 H Alkaline Phosphatase 131 H Total Protein 5.9 L Albumin 2.6 L Albumin/Globulin Ratio Triglycerides Urine Protein Urine Glucose (UA) Urine Blood Urine Mucus 10/27/24 10/27/24 10/27/24 05:30 12:19 13:15 WBC RBC Hgb Hct MCHC Immature Gran # Neutrophils # Lymphocytes # Monocytes # PT INR APTT D-Dimer Sodium Potassium Chloride Carbon Dioxide BUN BUN/Creatinine Ratio Glucose POC Glucose (mg/dL) 166 H 137 H Plasma Lactic Acid Bryson Calcium Phosphorus Magnesium Total Bilirubin AST ALT Alkaline Phosphatase Total Protein Albumin Albumin/Globulin Ratio Triglycerides Urine Protein Trace H Urine Glucose (UA) Trace H Urine Blood Urine Mucus 10/27/24 10/27/24 10/28/24 17:07 23:56 06:15 WBC RBC Hgb Hct MCHC Immature Gran # Neutrophils # Lymphocytes # Monocytes # PT INR APTT D-Dimer Sodium Potassium Chloride Carbon Dioxide BUN BUN/Creatinine Ratio Glucose POC Glucose (mg/dL) 152 H 200 H 155 H Plasma Lactic Acid Bryson Calcium Phosphorus Magnesium Total Bilirubin AST ALT Alkaline Phosphatase Total Protein Albumin Albumin/Globulin Ratio Triglycerides Urine Protein Urine Glucose (UA) Urine Blood Urine Mucus 10/28/24 10/28/24 10/28/24 06:15 06:30 06:30 WBC 13.2 H RBC 3.53 L Hgb 10.6 L D Hct 33.3 L MCHC Immature Gran # Neutrophils # 9.5 H Lymphocytes # Monocytes # 1.9 H PT 12.6 H INR 1.2 H APTT D-Dimer Sodium 129 L Potassium Chloride 97 L Carbon Dioxide BUN BUN/Creatinine Ratio Glucose 148 H POC Glucose (mg/dL) Plasma Lactic Acid Bryson Calcium 8.2 L Phosphorus Magnesium Total Bilirubin AST ALT Alkaline Phosphatase Total Protein Albumin Albumin/Globulin Ratio Triglycerides Urine Protein Urine Glucose (UA) Urine Blood Urine Mucus 10/28/24 10/28/24 10/28/24 12:19 17:13 23:54 WBC RBC Hgb Hct MCHC Immature Gran # Neutrophils # Lymphocytes # Monocytes # PT INR APTT D-Dimer Sodium Potassium Chloride Carbon Dioxide BUN BUN/Creatinine Ratio Glucose POC Glucose (mg/dL) 153 H 161 H 151 H Plasma Lactic Acid Bryson Calcium Phosphorus Magnesium Total Bilirubin AST ALT Alkaline Phosphatase Total Protein Albumin Albumin/Globulin Ratio Triglycerides Urine Protein Urine Glucose (UA) Urine Blood Urine Mucus 10/29/24 10/29/24 10/29/24 05:36 05:36 05:42 WBC 17.1 H RBC 3.43 L Hgb 10.3 L Hct 32.3 L MCHC Immature Gran # Neutrophils # 12.8 H Lymphocytes # Monocytes # 2.2 H PT INR APTT D-Dimer Sodium 131 L Potassium Chloride Carbon Dioxide BUN 24 H BUN/Creatinine Ratio Glucose 121 H POC Glucose (mg/dL) 118 H Plasma Lactic Acid Bryson Calcium Phosphorus Magnesium Total Bilirubin AST ALT Alkaline Phosphatase Total Protein Albumin Albumin/Globulin Ratio Triglycerides Urine Protein Urine Glucose (UA) Urine Blood Urine Mucus 10/29/24 10/29/24 10/30/24 12:01 17:54 01:55 WBC RBC Hgb Hct MCHC Immature Gran # Neutrophils # Lymphocytes # Monocytes # PT INR APTT D-Dimer Sodium Potassium Chloride Carbon Dioxide BUN BUN/Creatinine Ratio Glucose POC Glucose (mg/dL) 162 H 139 H 178 H Plasma Lactic Acid Bryson Calcium Phosphorus Magnesium Total Bilirubin AST ALT Alkaline Phosphatase Total Protein Albumin Albumin/Globulin Ratio Triglycerides Urine Protein Urine Glucose (UA) Urine Blood Urine Mucus 10/30/24 10/30/24 10/30/24 04:14 04:14 05:57 WBC 12.6 H RBC 3.34 L Hgb 9.9 L Hct 32.4 L MCHC 30.4 L Immature Gran # Neutrophils # 9.4 H Lymphocytes # Monocytes # 1.4 H PT INR APTT D-Dimer Sodium 132 L Potassium Chloride Carbon Dioxide BUN 23 H BUN/Creatinine Ratio Glucose 155 H POC Glucose (mg/dL) 143 H Plasma Lactic Acid Bryson Calcium 8.2 L Phosphorus Magnesium Total Bilirubin 3.0 H AST 228 H ALT 75 H Alkaline Phosphatase 145 H Total Protein 5.7 L Albumin 2.4 L Albumin/Globulin Ratio Triglycerides Urine Protein Urine Glucose (UA) Urine Blood Urine Mucus 10/30/24 10/30/24 10/31/24 18:04 23:50 06:06 WBC RBC Hgb Hct MCHC Immature Gran # Neutrophils # Lymphocytes # Monocytes # PT INR APTT D-Dimer Sodium Potassium Chloride Carbon Dioxide BUN BUN/Creatinine Ratio Glucose POC Glucose (mg/dL) 118 H 256 H 264 H Plasma Lactic Acid Bryson Calcium Phosphorus Magnesium Total Bilirubin AST ALT Alkaline Phosphatase Total Protein Albumin Albumin/Globulin Ratio Triglycerides Urine Protein Urine Glucose (UA) Urine Blood Urine Mucus 10/31/24 10/31/24 10/31/24 06:30 06:30 12:09 WBC 15.8 H RBC 3.25 L Hgb 9.6 L Hct 31.5 L MCHC 30.4 L Immature Gran # Neutrophils # 13.7 H Lymphocytes # 0.8 L Monocytes # 1.1 H PT INR APTT D-Dimer Sodium 133 L Potassium Chloride Carbon Dioxide 21 L BUN 31 H BUN/Creatinine Ratio Glucose 256 H POC Glucose (mg/dL) 233 H Plasma Lactic Acid Bryson Calcium Phosphorus 4.9 H Magnesium 2.4 H Total Bilirubin AST ALT Alkaline Phosphatase Total Protein Albumin Albumin/Globulin Ratio Triglycerides 202.00 H Urine Protein Urine Glucose (UA) Urine Blood Urine Mucus 10/31/24 10/31/24 11/01/24 16:53 20:00 00:15 WBC RBC Hgb Hct MCHC Immature Gran # Neutrophils # Lymphocytes # Monocytes # PT INR APTT D-Dimer Sodium Potassium Chloride Carbon Dioxide BUN BUN/Creatinine Ratio Glucose POC Glucose (mg/dL) 193 H 202 H 176 H Plasma Lactic Acid Bryson Calcium Phosphorus Magnesium Total Bilirubin AST ALT Alkaline Phosphatase Total Protein Albumin Albumin/Globulin Ratio Triglycerides Urine Protein Urine Glucose (UA) Urine Blood Urine Mucus 11/01/24 11/01/24 11/01/24 06:10 06:35 06:35 WBC 14.4 H RBC 3.32 L Hgb 9.8 L Hct 31.8 L MCHC 30.8 L Immature Gran # Neutrophils # 11.7 H Lymphocytes # Monocytes # 1.3 H PT INR APTT D-Dimer Sodium 136 L Potassium Chloride Carbon Dioxide BUN 28 H BUN/Creatinine Ratio Glucose 151 H POC Glucose (mg/dL) 146 H Plasma Lactic Acid Bryson Calcium 8.3 L Phosphorus Magnesium 2.9 H Total Bilirubin AST ALT Alkaline Phosphatase Total Protein Albumin Albumin/Globulin Ratio Triglycerides Urine Protein Urine Glucose (UA) Urine Blood Urine Mucus 11/01/24 11/01/24 11/01/24 11:54 17:49 23:29 WBC RBC Hgb Hct MCHC Immature Gran # Neutrophils # Lymphocytes # Monocytes # PT INR APTT D-Dimer Sodium Potassium Chloride Carbon Dioxide BUN BUN/Creatinine Ratio Glucose POC Glucose (mg/dL) 175 H 178 H 159 H Plasma Lactic Acid Bryson Calcium Phosphorus Magnesium Total Bilirubin AST ALT Alkaline Phosphatase Total Protein Albumin Albumin/Globulin Ratio Triglycerides Urine Protein Urine Glucose (UA) Urine Blood Urine Mucus 11/02/24 11/02/24 11/02/24 05:31 07:17 07:39 WBC RBC Hgb Hct MCHC Immature Gran # Neutrophils # Lymphocytes # Monocytes # PT INR APTT D-Dimer 18.17 H Sodium Potassium Chloride Carbon Dioxide BUN 27 H BUN/Creatinine Ratio Glucose 155 H POC Glucose (mg/dL) 162 H Plasma Lactic Acid Bryson Calcium 8.2 L Phosphorus Magnesium Total Bilirubin AST ALT Alkaline Phosphatase Total Protein Albumin Albumin/Globulin Ratio Triglycerides Urine Protein Urine Glucose (UA) Urine Blood Urine Mucus 11/02/24 11/02/24 11/02/24 11:18 11:18 11:55 WBC 21.2 H RBC 3.40 L Hgb 9.8 L Hct 33.0 L MCHC 29.8 L Immature Gran # Neutrophils # 18.4 H Lymphocytes # Monocytes # PT 12.6 H INR 1.2 H APTT 71.6 H D-Dimer Sodium Potassium Chloride Carbon Dioxide BUN BUN/Creatinine Ratio Glucose POC Glucose (mg/dL) 172 H Plasma Lactic Acid Bryson Calcium Phosphorus Magnesium Total Bilirubin AST ALT Alkaline Phosphatase Total Protein Albumin Albumin/Globulin Ratio Triglycerides Urine Protein Urine Glucose (UA) Urine Blood Urine Mucus - Diagnostic Findings Chest x-ray: image reviewed Assessment and Plan Assessment: Worsening hypoxemic respiratory failure, which might relate to underlying fluid overload, and/or pneumonia, or even pulmonary embolism. History of recently diagnosed GI tract cancer, with liver metastasis. History of heavy tobacco use for many years, rule out underlying COPD, and mild COPD exacerbation. History of hyperlipidemia. History of hypertension. Plan: Plan dated November 02, 2024. The patient's chest x-ray suggest either pneumonia, or fluid overload, or combination of both. For that reason, the patient will get Lasix 40 mg IV push. In addition, we will check a procalcitonin level. Additionally, we add DuoNeb s, and Symbicort, usual doses, as the patient is a heavy smoker, and may have a component of COPD as well. The patient's BNP was elevated at 1910. He continues on a Cardizem drip, and TPN at 85 cc an hour, along with IV heparin. In open jejunostomy tube was placed on October 31. Finally, the patient's D-dimer is elevated, and the patient should be sent for CT angiogram to rule out pulmonary embolism. Additional recommendations and suggestions are forthcoming. We will continue to follow make recommendations along the way. Dictation was produced using [employer] software. Please excuse any grammatical, word or spelling errors. Time with Patient: Greater than 30
--- NOTE | 2024-11-02 15:08 | P.PN ---
Subjective Progress Note Date: 11/02/24 CHIEF COMPLAINT: Intractable nausea and vomiting HISTORY OF PRESENT ILLNESS: The patient is a 74-year-old male diagnosed with metastatic cancer. His jejunostomy feeding tube placement started. No reports of nausea. He is surrounded by multiple family members. He is in good spirits. He is now on heparin drip. ROS: No fevers or chills. No new chest pain. PHYSICAL EXAM: VITAL SIGNS: Reviewed CONSTITUTIONAL: Well developed and in no acute distress. EYES: Conjuctivae without sclera icterus. Extraocular movements grossly intact. HEAD, EARS, NOSE, THROAT: Moist buccal mucosa. Head is atraumatic, normocephalic. Hears conversational speech. No nasal drainage. RESPIRATORY: Non-labored respirations and equal bilateral excursions. CARDIOVASCULAR: Palpable 2+ radial pulses. ABDOMEN: No peritonitis. Jejunostomy feeding tube intact. MUSCULOSKELETAL: No gross deformity of the lower extremities noted. No clubbing. No cyanosis. SKIN: Good skin turgor. Well perfused. NEUROLOGIC: Cranial nerves II through XII grossly intact. No focal or lateralizing signs. PSYCH: Appropriate affect. Alert and oriented to person CLINICAL LABS: Reviewed. WBC elevated from 14,000 21,000 ASSESSMENT: 1. Intractable nausea and vomiting 2. Abnormal CT scan with multiple metastatic disease 3. Metastatic disease of poorly differentiated adenocarcinoma from upper GI source 4. Inadequate protein intake with moderate to severe protein malnutrition 5. Hyponatremia 6. Leukocytosis PLAN: 1. Oncology team requesting placement of Mediport. Coumadin on hold. Patient is on heparin drip. 2. Jejunostomy feeding tube for nutrition. 3. Patient is elevated risk for bleeding complications due to chronic anticoagulation Objective - Vital Signs Vital signs: Vital Signs Temp 98.3 F 11/02/24 12:45 Pulse 104 H 11/02/24 12:45 Resp 24 11/02/24 12:45 BP 148/82 11/02/24 12:45 Pulse Ox 91 L 11/02/24 12:45 FiO2 90 11/02/24 12:45 Intake & Output 11/01/24 11/02/24 11/02/24 17:59 06:59 18:59 Intake Total Output Total Balance Weight Intake: IV Diltiazem 125 mg In Sodium Chloride 0.9% 100 ml @ 10 MG/HR 10 mls/hr IV .[id number] [facility] Rx#: [id number] Intake, IV Titration Amount Dextrose 5%-0.45% NaCl 1, 000 ml @ 40 mls/hr IV . Q24H [facility] Rx#:[id number] Diltiazem 125 mg In Sodium Chloride 0.9% 100 ml @ 10 MG/HR 10 mls/hr IV .[id number] [facility] Rx#: [id number] Mvi, Adult No.4 with Vit K 10 ml Trace (Conc-1Ml/ Dose) 1 ml Sodium Chloride 4Meq/ml Vial 68 meq Sodium Acetate 40 meq Potassium Acetate 30 meq Calcium Gluconate 1 gm In Amino Acids 5 %/ Dextrose 20 % 1,000 ml @ 85 mls/hr IV .BY DURATION [facility] Rx#:[id number] Sodium Chloride 4Meq/ml Vial 68 meq Sodium Acetate 40 meq Potassium Acetate 30 meq Calcium Gluconate 1 gm In Amino Acids 5 %/Dextrose 20 % 1 ,000 ml @ 85 mls/hr IV . BY DURATION [facility] Rx#: [id number] Output: Urine Other: Voiding Method Indwelling Catheter - Labs CBC & Chem 7: 11/02/24 11:18 11/02/24 07:17 Labs: Abnormal Lab Results - Last 24 Hours (Table) 11/01/24 11/01/24 11/02/24 Range/Units 17:49 23:29 05:31 WBC (3.8-10.6) k/uL RBC (4.30-5.90) m/uL Hgb (13.0-17.5) gm/dL Hct (39.0-53.0) % MCHC (31.0-37.0) g/dL Neutrophils # (1.3-7.7) k/uL PT (10.0-12.5) sec INR (<1.2) APTT (22.0-30.0) sec D-Dimer (<0.60) mg/L FEU BUN (9-20) mg/dL Glucose (74-99) mg/dL POC Glucose (mg/dL) 178 H 159 H 162 H (70-110) mg/dL Calcium (8.4-10.2) mg/dL 11/02/24 11/02/24 11/02/24 Range/Units 07:17 07:39 11:18 WBC 21.2 H (3.8-10.6) k/uL RBC 3.40 L (4.30-5.90) m/uL Hgb 9.8 L (13.0-17.5) gm/dL Hct 33.0 L (39.0-53.0) % MCHC 29.8 L (31.0-37.0) g/dL Neutrophils # 18.4 H (1.3-7.7) k/uL PT (10.0-12.5) sec INR (<1.2) APTT (22.0-30.0) sec D-Dimer 18.17 H (<0.60) mg/L FEU BUN 27 H (9-20) mg/dL Glucose 155 H (74-99) mg/dL POC Glucose (mg/dL) (70-110) mg/dL Calcium 8.2 L (8.4-10.2) mg/dL 11/02/24 11/02/24 Range/Units 11:18 11:55 WBC (3.8-10.6) k/uL RBC (4.30-5.90) m/uL Hgb (13.0-17.5) gm/dL Hct (39.0-53.0) % MCHC (31.0-37.0) g/dL Neutrophils # (1.3-7.7) k/uL PT 12.6 H (10.0-12.5) sec INR 1.2 H (<1.2) APTT 71.6 H (22.0-30.0) sec D-Dimer (<0.60) mg/L FEU BUN (9-20) mg/dL Glucose (74-99) mg/dL POC Glucose (mg/dL) 172 H (70-110) mg/dL Calcium (8.4-10.2) mg/dL
[2024-11-02 17:52] LABS: Glucose,Whole Blood 167 mg/dL (70-110)
[2024-11-02 20:11] VITALS: TEMP 99.1
--- NOTE | 2024-11-02 20:30 | P.PN ---
Subjective Progress Note Date: 11/02/24 Patient is postoperative day 1 after the J-tube placement. Thereafter the procedure patient developed atrial fibrillation with RVR for which she was started on Cardizem drip and was transferred to the third floor. His liver biopsy of showed metastatic adenocarcinoma. SUBJECTIVE: Patient is seen and examined at bedside this a.m. He is very weak. He is in atrial fibrillation with average heart rate around 90 - 110 bpm BP 158 over 82 bpm. It appears that patient's heart rate and blood pressures are elevated when he is in pain. 11/02/2024 Patient is seen and examined at bedside. Patient appears to be more short of breath, requiring supplemental oxygen. Continues to be tachycardic, chest x-ray shows mild pulmonary vascular congestion, still getting TPN, she is on IV Cardizem drip. PHYSICAL EXAMINATION Vital signs reviewed. Neck: Brisk carotid upstroke, no jugular venous distention. Lungs: Poor respiratory effort with mild crackles Heart: Irregularly irregular pulse, mild systolic murmur audible, Abdomen: Mild abdominal tenderness, surgical dressing in place, G-tube in place Extremities: 1+ edema Neuro: Alert, mildly confused,. Detailed neuro exam was not performed. ASSESSMENT Atrial fibrillation with RVR Gastric cancer Pyloric stenosis with gastric outlet obstruction status post J-tube placement Metastatic liver disease Severe protein calorie energy malnutrition PLAN Continue IV Cardizem drip as patient is not able to continue to tolerate oral medication Once patient starts tolerating oral medication, consider changing Cardizem to p.o. metoprolol. Prognosis is guarded Objective - Vital Signs Vital signs: Vital Signs Temp 99.1 F 11/02/24 20:00 Pulse 116 H 11/02/24 20:00 Resp 24 11/02/24 20:00 BP 142/85 11/02/24 20:00 Pulse Ox 92 L 11/02/24 20:00 FiO2 90 11/02/24 15:51 Intake & Output 11/02/24 11/02/24 11/03/24 06:59 18:59 06:59 Intake Total 1233.84 Output Total 2550 Balance -1316.16 Weight Intake: IV 1140 Diltiazem 125 mg In 120 Sodium Chloride 0.9% 100 ml @ 10 MG/HR 10 mls/hr IV .[id number] [facility] Rx#: [id number] Mvi, Adult No.4 with Vit 1020 K 10 ml Trace (Conc-1Ml/ Dose) 1 ml Sodium Chloride 4Meq/ml Vial 68 meq Sodium Acetate 40 meq Potassium Acetate 30 meq Calcium Gluconate 1 gm In Amino Acids 5 %/ Dextrose 20 % 1,000 ml @ 85 mls/hr IV .BY DURATION [facility] Rx#:[id number] Intake, IV Titration 93.84 Amount Dextrose 5%-0.45% NaCl 1, 000 ml @ 40 mls/hr IV . Q24H [facility] Rx#:[id number] Diltiazem 125 mg In Sodium Chloride 0.9% 100 ml @ 10 MG/HR 10 mls/hr IV .[id number] [facility] Rx#: [id number] Heparin Sod,Pork in 0.45% 93.84 NaCl 25,000 unit In 0.45 % NaCl 1 250ml.bag @ 18 UNITS/KG/HR 11.736 mls/hr IV .[id number] [facility] Rx#: [id number] Sodium Chloride 4Meq/ml Vial 68 meq Sodium Acetate 40 meq Potassium Acetate 30 meq Calcium Gluconate 1 gm In Amino Acids 5 %/Dextrose 20 % 1 ,000 ml @ 85 mls/hr IV . BY DURATION [facility] Rx#: [id number] Output: Urine 2550 Other: Voiding Method Indwelling Catheter Indwelling Catheter - Labs CBC & Chem 7: 11/02/24 11:18 11/02/24 07:17 Labs: Abnormal Lab Results - Last 24 Hours (Table) 11/01/24 11/02/24 11/02/24 Range/Units 23:29 05:31 07:17 WBC (3.8-10.6) k/uL RBC (4.30-5.90) m/uL Hgb (13.0-17.5) gm/dL Hct (39.0-53.0) % MCHC (31.0-37.0) g/dL Neutrophils # (1.3-7.7) k/uL PT (10.0-12.5) sec INR (<1.2) APTT (22.0-30.0) sec D-Dimer (<0.60) mg/L FEU BUN 27 H (9-20) mg/dL Glucose 155 H (74-99) mg/dL POC Glucose (mg/dL) 159 H 162 H (70-110) mg/dL Calcium 8.2 L (8.4-10.2) mg/dL 11/02/24 11/02/24 11/02/24 Range/Units 07:39 11:18 11:18 WBC 21.2 H (3.8-10.6) k/uL RBC 3.40 L (4.30-5.90) m/uL Hgb 9.8 L (13.0-17.5) gm/dL Hct 33.0 L (39.0-53.0) % MCHC 29.8 L (31.0-37.0) g/dL Neutrophils # 18.4 H (1.3-7.7) k/uL PT 12.6 H (10.0-12.5) sec INR 1.2 H (<1.2) APTT 71.6 H (22.0-30.0) sec D-Dimer 18.17 H (<0.60) mg/L FEU BUN (9-20) mg/dL Glucose (74-99) mg/dL POC Glucose (mg/dL) (70-110) mg/dL Calcium (8.4-10.2) mg/dL 11/02/24 11/02/24 11/02/24 Range/Units 11:55 17:05 17:50 WBC (3.8-10.6) k/uL RBC (4.30-5.90) m/uL Hgb (13.0-17.5) gm/dL Hct (39.0-53.0) % MCHC (31.0-37.0) g/dL Neutrophils # (1.3-7.7) k/uL PT (10.0-12.5) sec INR (<1.2) APTT 54.0 H (22.0-30.0) sec D-Dimer (<0.60) mg/L FEU BUN (9-20) mg/dL Glucose (74-99) mg/dL POC Glucose (mg/dL) 172 H 167 H (70-110) mg/dL Calcium (8.4-10.2) mg/dL
[2024-11-02] MEDS: SYMBICORT 160-4.5 MCG INHALER INHALATION SCH (20:34)
[2024-11-03 00:22] LABS: Glucose,Whole Blood 187 mg/dL (70-110)
[2024-11-03 00:40] VITALS: BP 142/82
[2024-11-03] MEDS: MORPHINE SULFATE 100 MG in SODIUM CHLORIDE 0.9% 90 ML IV SCH (01:18)
[2024-11-03] MEDS: SCOPOLAMINE 1 MG/72 HR PATCH TRANSDERM SCH (01:20)
[2024-11-03] MEDS: MORPHINE SULFATE 4 MG/ML SYRINGE IVP PRN (01:26)
[2024-11-03] MEDS: LORazepam 1 MG/0.5 ML VIAL IV PRN (02:07)
[2024-11-03] MEDS: ATROPINE OPHTH SOLN 1% 5ML BTL SUBLINGUAL PRN (02:41)
[2024-11-03 04:11] VITALS: PULSE 113; RESP 22
[2024-11-03] MEDS: GLYCOPYRROLATE 0.2 MG/ML 2 ML VIAL IVP PRN (04:29)
--- NOTE | 2024-11-07 11:45 | P.DS ---
Providers Date of admission: 10/20/24 16:48 Expected date of discharge: 11/03/24 Attending physician: Roger Cuba MD Consults: 10/20/24 15:00 Consult Physician Urgent Consulting Provider: Delmer Elias Consult Reason/Comments: Nausea/vomiting/malignancy? Do you want consulting provider notified?: Yes 10/23/24 11:41 Consult Physician Urgent Consulting Provider: Von Cummins Consult Reason/Comments: need for g tube, pyloric stenosis, esophageal lesion Do you want consulting provider notified?: Yes 10/27/24 12:22 Consult Physician Routine Consulting Provider: Vivek Britton Consult Reason/Comments: gastric adenocarcinoma, gastric outlet obstruction Do you want consulting provider notified?: Yes 10/30/24 12:23 Consult Physician Urgent Consulting Provider: Evonne Payton Consult Reason/Comments: A-Fib RVR Do you want consulting provider notified?: Already Contacted 10/31/24 17:42 Consult Physician Routine Consulting Provider: Von Cummins Consult Reason/Comments: port placement for chemo Do you want consulting provider notified?: Yes 11/02/24 01:07 Consult Physician Urgent Consulting Provider: Alexander Freeman Consult Reason/Comments: increased O2 demand Do you want consulting provider notified?: Yes, Notify in am Primary care physician: [facility] Course: Preliminary cause of Gastric adenocarcinoma with metastasis Final diagnosis Acute hypoxic respiratory failure Acute bilateral pulmonary infiltrates suspicious for CHF versus pneumonia. proBNP is mildly elevated 1910 Elevated D-dimer, ruled out PE Abdominal pain with nausea and vomiting likely secondary to invasive gastric adenocarcinoma 4 cm ulcerated lesion noted on the antrum causing significant pyloric stenosis with gastric outlet obstruction as found on EGD multiple hypodense lesions noted throughout the liver most consistent with metastasis, status post biopsy and pending results Nausea/vomiting/diarrhea, acute gastritis, status post EGD revealing a 4 cm ulcerated lesion causing significant pyloric stenosis, gastric biopsy positive for invasive adenocarcinoma history of chronic A-fib, was on Coumadin Hypertension Continued ongoing nicotine dependence Chronic daily alcohol use, last drink approximately 1.5 weeks prior to hospitalization Acute kidney injury, ATN, likely secondary to nausea, vomiting, diarrhea, improved Diarrhea, ruled out C. difficile, no further episodes of diarrhea elevated LFTs and total bilirubin, likely secondary to chronic alcohol use Known right pulmonary nodule with no outpatient follow-up, noted again on CT History of hyperlipidemia Severe protein calorie malnutrition, currently maintained on TPN No code Discharge disposition Patient has . According to nursing documentation, time of was 0735 on 11/03/2024. Total time taken is greater than 35 minutes. Hospital course This is a 74-year-old male who was recently admitted with abdominal pain with nausea and vomiting and diarrhea concerns initially for acute gastritis as patient is a drinker with acute alcoholic gastritis. Patient having multiple episodes of diarrhea also and unable to tolerate any oral intake. Patient did undergo J-tube placement for oral nutrition as patient was unable to tolerate and is status post EGD noted to have a significant 4 cm ulcerated lesion causing significant pyloric stenosis. Biopsies obtained from the liver with multiple nodules noted along with gastric biopsy during EGD positive for gastric adenocarcinoma with mets. Patient also with significant history of A-fib maintained on Coumadin having multiple issues with RVR and rate control being followed by cardiology. Patient clinically deteriorating having hypoxic respiratory failure noted to have bilateral infiltrates concerns with CHF versus pneumonia had an elevated D-dimer and PE was ruled out. And patient also was continued on TPN prior to use of J-tube with nutrition. Per nursing staff patient having increasing oxygen demands with heart rates uncontrolled into the 140s with A-fib placed on nonrebreather and ultimately requiring nonrebreather. Patient with significant ongoing disease processes including metastatic cancer family had opted for comfort and at 0735 on morphine drip. Prognosis was extremely guarded and poor. Please refer to other consultation notes for further HPI. The impression and plan of care has been dictated by Emma Garcia, Nurse Practitioner as directed. Dr. Yazmin MD I have performed a history and examination and MDM of this patient, discussed the same with the dictator, and agree with the dictator's assessment and plan as written ,documented as a scribe. Based on total visit time, I have performed more than 50% of the visit. Patient Condition at Discharge: Poor Plan - Discharge Summary Discharge Rx Participant: No New Discharge Prescriptions: No Action Metoprolol Tartrate [Lopressor] 50 mg PO BID@0700,1500 Warfarin [Coumadin] 2.5 mg PO DAILY@1500 Discharge Medication List Metoprolol Tartrate [Lopressor] 50 mg PO BID@0700,1500 10/20/24 [History] Warfarin [Coumadin] 2.5 mg PO DAILY@1500 10/20/24 [History] Follow up Appointment(s)/Referral(s): Jacqueline Still MD [STAFF PHYSICIAN] - 11/05/24 2:30 pm [facility] [REFERRING] - (This is a visiting physician service that you can set up if you choose. ) Damion Candelario MD [Primary Care Provider] - 1-2 days Gely Mena MD [STAFF PHYSICIAN] - 1 Week [facility], [REFERRING] - [facility] [NON-STAFF] - [facility] [NON-STAFF] - (This is a Visiting physician company if you chose to have this service for him.) Discharge/Stand Alone Forms: AA Shahbaz Simon, Who Do I Call?, Outpatient Counseling, In Substance Abuse Facilities Discharge Disposition: - Preliminary Cause of Preliminary Cause of : Gastric adenocarcinoma with metastasis
== END 2024-11-03 12:38 | disposition expired | DRG 374 ==
LOC: EC 11:06 → 5NMEDONC 16:48 → 3SCARD 10-30 15:53
PROVIDERS: ADMIT Internal Medicine; ATTEND Internal Medicine
PROC: 0DB78ZX Excision of Stomach, Pylorus, Via Natural or Artificial Opening Endoscopic, Diagnostic (ICD-10-PCS; 2024-10-22)
PROC: 3E0436Z Introduction of Nutritional Substance into Central Vein, Percutaneous Approach (ICD-10-PCS; 2024-10-24)
PROC: 02HV33Z Insertion of Infusion Device into Superior Vena Cava, Percutaneous Approach (ICD-10-PCS; 2024-10-24)
PROC: 0FB03ZX Excision of Liver, Percutaneous Approach, Diagnostic (ICD-10-PCS; principal; 2024-10-24 07:30)
PROC: 0DHA0UZ Insertion of Feeding Device into Jejunum, Open Approach (ICD-10-PCS; 2024-10-30)
PROC: 3E033RZ Introduction of Antiarrhythmic into Peripheral Vein, Percutaneous Approach (ICD-10-PCS; 2024-10-30)
PROC: 5A09357 Assistance with Respiratory Ventilation, Less than 24 Consecutive Hours, Continuous Positive Airway Pressure (ICD-10-PCS; 2024-11-02)
DX: C16.9 Malignant neoplasm of stomach, unspecified (principal); E43 Unspecified severe protein-calorie malnutrition; N17.0 Acute kidney failure with tubular necrosis; J96.01 Acute respiratory failure with hypoxia; K31.1 Adult hypertrophic pyloric stenosis; C78.7 Secondary malignant neoplasm of liver and intrahepatic bile duct; Z51.5 Encounter for palliative care; E86.0 Dehydration; I50.9 Heart failure, unspecified; K70.30 Alcoholic cirrhosis of liver without ascites; I10 Essential (primary) hypertension; F10.10 Alcohol abuse, uncomplicated; I48.20 Chronic atrial fibrillation, unspecified; E87.1 Hypo-osmolality and hyponatremia; Z66 Do not resuscitate; E78.5 Hyperlipidemia, unspecified; K31.89 Other diseases of stomach and duodenum; F17.200 Nicotine dependence, unspecified, uncomplicated; R91.1 Solitary pulmonary nodule; E87.6 Hypokalemia; R00.0 Tachycardia, unspecified; Z79.899 Other long term (current) drug therapy; Z79.01 Long term (current) use of anticoagulants; Z68.23 Body mass index [BMI] 23.0-23.9, adult; Z79.51 Long term (current) use of inhaled steroids
CPT/HCPCS: 36410; 36415; 36573; 43239; 47000; 71045; 74177; 76937; 77012; 80048; 80053; 80074; 81001; 81003; 82105; 82150; 82330; 83605; 83690; 83735; 83880; 84100; 84145; 84478; 84484; 85025; 85379; 85610; 85730; 87040; 87636; 88305; 88307; 88341; 88342; 93306; 94660; 94760; 96361; 96374; 99285